=== PATIENT | female | born 1960 | race Caucasian/White ===

== ENCOUNTER 2024-10-10 15:51 | Outpatient (AMB) | payer MEDICARE, SELFPAY ==
[2024-10-10 15:52] VITALS: BP 185/79; PULSE 75; RESP 18; TEMP 36.3; O2SAT 96
--- NOTE | 2024-10-10 15:52 | PD.RESCLINIC ---
Vital Signs 10/10/24 15:52 Weight 86.409 kg Weight Measurement Method Standing Scale BP 185/79 H Blood Pressure Source Automatic Cuff Blood Pressure Location Left Upper Arm Position Sitting Respiration 18 Pulse 75 Pulse Source Monitor Temp 97.3 F Temp Source Oral Pulse Oximetry (%) 96 Oxygen Delivery Method Room Air Allergies/Meds Allergies & Medications Allergies nifedipine Allergy (Verified 10/14/24 15:07) itching Medication Reconciliation bupropion HCl 450 mg 24 hr tablet, extended release 450 mg PO QAM #30 tabs 07/13/24 [Rx Confirmed 10/10/24] isosorbide mononitrate 60 mg tablet,extended release 24 hr 60 mg PO QDAY chest pain #30 tabs 07/13/24 [Rx Confirmed 10/10/24] metoprolol tartrate 25 mg tablet 25 mg PO BID 30 days #60 tabs 07/13/24 [Rx Confirmed 10/10/24] valsartan 160 mg-hydrochlorothiazide 12.5 mg tablet 2 tab PO QDAY #60 tabs 07/13/24 [Rx Confirmed 10/10/24] gabapentin 600 mg tablet 600 mg PO TID #90 tabs 08/05/24 [Rx Confirmed 10/10/24] atorvastatin 80 mg tablet 80 mg PO QPM 30 days #30 tabs 08/10/24 [Rx Confirmed 10/10/24] clopidogrel 75 mg tablet (Plavix) 75 mg PO QDAY 30 days #30 tabs 08/10/24 [Rx Confirmed 10/10/24] diphenoxylate-atropine 2.5 mg-0.025 mg tablet (Lomotil) 1 tab PO QID PRN diarrhea #30 tabs 09/09/24 [Rx Confirmed 10/10/24] nitroglycerin 0.4 mg sublingual tablet 0.4 mg sublingual Q5-15M PRN chest pain #20 tabs 09/12/24 [Rx Confirmed 10/10/24] bupropion HCl 450 mg 24 hr tablet, extended release 450 mg PO QAM #30 tabs 10/03/24 [Rx Confirmed 10/10/24] amitriptyline 50 mg tablet 50 mg PO QHS #30 tabs 10/10/24 [Rx] clonidine HCl 0.1 mg tablet 0.1 mg PO TID #60 tabs 12/23/24 [Rx] hydralazine 100 mg tablet 100 mg PO TID 30 days #90 tabs 10/10/24 [Rx] hydrocodone 7.5 mg-acetaminophen 325 mg tablet 1 tab PO TID PRN pain #90 tabs 10/10/24 [Rx] amlodipine 5 mg tablet 5 mg PO HS 1 month #30 tabs 10/14/24 [Rx Confirmed 10/14/24] MA Intake Visit Data Collection New Patient or Established: Established Patient (seen at [facility] within 3 years) Seen by Clinical Staff ONLY (RN/MA): No Pain Present Currently: No Pen Maker Required: No PCP or OBGYN visit in last 3 months: Yes Do You Feel Safe at Home: Yes Authorities Contacted: N/A Smoking Status Smoking Status: Current every day smoker Cessation Counseling Provided: LEYLA was advised that quitting smoking is the single most important factor to protect the health of themselves and their family. Discussed the benefits of quitting smoking with patient. Encouraged patient to quit smoking and provided Cessation assistance materials and resources. Tobacco Use: Cigarette Years smoked: 40 Are you interested in quitting?: No Immunization / Flu Flu Vaccine in the Last 12 Months: No Flu Vaccine Exclusion Criteria: Refused by Patient Past Medical History Past Medical History NEUROLOGIC: Positive Neurological Disorders, Cerebrovascular Accident, Alzheimer's Disease, Peripheral Neuropathy, Migraine and Head Trauma; Negative Transient Ischemic Attacks (TIA), Dementia, Parkinson's Disease, Brain Tumor, Meningitis, Seizures, Epilepsy, Multiple Sclerosis, Cerebral Palsy, Amyotrophic Lateral Sclerosis (ALS/Ada Gehrig's), Guillain-[place] Syndrome, Spina Bifida, Paralysis, Goins's Palsy, Subdural Hematoma, Spinal Cord Injury or Traumatic Brain Injury CARDIAC: Positive Hypercholesterolemia, Hypertension, Hypotension and Varicose Veins; Negative Cardiac Disorders, Myocardial Infarction, Cardiac Arrhythmia, Atrial Fibrillation, Angina, Heart Murmur, Coronary Artery Disease, Atherosclerotic Heart Disease, Peripheral Vascular Disease, Aneurysm, Congestive Heart Failure, Congenital Heart Disease, Valvular Heart Disease, Rheumatic Fever, Cardiomyopathy, Edema, Pericarditis, Cellulitis or Deep Vein Thrombosis RESPIRATORY: Positive Chronic Obstructive Pulmonary Disease (COPD) and Sleep Apnea; Negative Asthma, Bronchitis, Emphysema, Pneumonia, Pulmonary Fibrosis, Cystic Fibrosis, Tuberculosis, Pulmonary Embolism or Pulmonary Edema GASTROINTESTINAL: Positive Gastrointestinal Disorders, Gall Bladder Disease, Diverticulitis, Diverticulosis, Irritable Bowel, Gastroesophageal Reflux Disease and Obesity; Negative Hepatitis, Cirrhosis, Pancreatitis, Celiac Disease, Gastrointestinal Bleed, Esophageal Varices, Rodriguez's Esophagus, Colitis, Ulcerative Colitis, Ulcer, Colorectal Cancer, Crohn's Disease, Obstructive Bowel, Hiatal Hernia or Hemorrhoids GENITOURINARY: Positive Genitourinary Disorders and Kidney Stones; Negative Renal Disease, Polycystic Kidney Disease, Neurogenic Bladder or Dialysis REPRODUCTIVE: Positive Endometriosis and Previous Pregnancies; Negative Breast Cancer, Pelvic Inflammatory Disease or Uterine Prolapse MUSCULOSKELETAL: Positive Arthritis, Fibromyalgia and Degenerative Joint Disease; Negative Muscular Dystrophy, Myasthenia Gravis, Marfan's Syndrome, Bone Cancer, Rheumatoid Arthritis, Osteoporosis, Degenerative Disk Disease, Gout, Scoliosis, Carpal Tunnel Syndrome, Fractures, Osteomyelitis or Poliovirus ENT: Positive Head Trauma; Negative Cataracts, Glaucoma, Blind, Retinal Detachment, Macular Degeneration, Ear Infection, Deafness or Eye Prosthesis ENDOCRINE: Positive Diabetes Mellitus Type 2; Negative Endocrine Disorders, Diabetes Mellitus Type 1, Hypoglycemia, Walland's Syndrome, Bennett's Disease, Hyperthyroidism, Hypothyroidism, Parathyroid Disease, Pituitary Disease, Systemic Lupus Erythematosus, Syndrome of Inappropriate Antidiuretic Hormone (SIADH), Adrenal Disease or Graves' Disease HEMATOLOGIC: Negative Blood Disorders, Anemia, Leukemia, Hemophilia, Thalassemia, Sickle Cell Disease or Clotting Problems PSYCHO/SOCIAL: Positive Psychiatric Problems, Bipolar Disorder and Depression; Negative Schizophrenia, Anxiety, Behavior Problems, Self-Mutilation, Attention Deficit Disorder, Attention Deficit Hyperactivity Disorder, Depression, Post Traumatic Stress Disorder or Eating Disorder OTHER HISTORY: Positive Hospitalization, Falls, Chicken Pox, Measles and Mumps; Negative Down Syndrome, Autism, Developmental Delay, Shingles, Blood Transfusions, Blood Transfusion Reaction, Anesthesia Reactions, Organ Transplant, Chemotherapy, Radiation Therapy, Hyperbaric Therapy, MRSA, VRSA, Vancomycin-Resistant Enterococci, Human Immunodeficiency Virus (HIV), Rubella (Paragu[place] Measles), Pertussis, Clostridium Difficile, Cancer, Breast Cancer, Cervical Cancer, Colorectal Cancer, Lung Cancer or Ovarian Cancer Family History FAMILY HISTORY: Positive Family Psychiatric Problems, Family Cardiac Disorders and Family Gastrointestinal Problems; Negative Family Respiratory Disorders, Family Cancer, Family Surgery or Family Anesthesia Reaction Surgical History SURGICAL: Positive Oral Surgery, Tonsillectomy, Adenoidectomy, Abdominal Surgery, Joint Replacement, Arthroscopy and Hysterectomy; Negative Cardiac Surgery, Open Heart Surgery, Coronary Artery Bypass Graft, Valve Replacement, Vascular Surgery, Coronary Stent, Cardiac Catheterization, Pacemaker, Angiogram, Auto Implanted Cardiovert Defib, Carotid Endarterectomy, Endocrine Surgery, Thyroidectomy, Ear Surgery, Tympanostomy Tube, Eye Surgery, Nose Surgery, Cochlear Implant, Corneal Transplant, Throat Surgery, Tracheostomy, Gastric Bypass Surgery, Gastrostomy, Bowel Surgery, Nephrectomy, Amputation, Open Reduction Internal Fixation, Neurologic Surgery, Brain Shunt, Mastectomy, Lumpectomy, Tubal Ligation, Section or Organ Transplant Social History SMOKING STATUS: Smoking status: Current every day smoker PACK YEARS: Pack-Years: 17 SECOND HAND EXPOSURE: second hand exposure: No ALCOHOL: Alcohol Intake: Never HOUSING: Housing: House LIVES WITH: Lives With: Family Patient Lelo Sheila Social History Living Situation History Housing: House Housing Other:: Patient resides in a home with her daughter. Tobacco History Smoking Status: Current every day smoker Packs per Day: 1 Pack-Years: 17 Number of Smoking Years (pipe): 10 Second Hand Smoke Exposure: No Alcohol History Alcohol Intake: Never Domestic Abuse History Do You Feel Safe at Home: Yes Review of Systems Report any current symptoms Only answer those that you have currently: Past Medical History Past Medical History Have you ever been diagnosed with any of the following: Neurological Problems Cerebrovascular Accident (CVA): Yes Transient Ischemic Attacks (TIA): No Dementia: No Alzheimer's Disease: Yes Parkinson's Disease: No Brain Tumor: No Meningitis: No Seizures: No Epilepsy: No Multiple Sclerosis: No Cerebral Palsy: No Amyotrophic Lateral Sclerosis (ALS/Ada Gehrig's): No Guillain-[place] Syndrome: No Spina Bifida: No Paralysis: No Peripheral Neuropathy: Yes Goins's Palsy: No Subdural Hematoma: No Migraine: Yes Head Trauma: Yes Spinal Cord Injury: No Traumatic Brain Injury: No Cardiology Problems Myocardial Infarction: No Cardiac Arrhythmia: No Atrial Fibrillation: No Angina: No Heart Murmur: No Coronary Artery Disease: No Atherosclerotic Heart Disease: No Peripheral Vascular Disease: No Hypercholesterolemia: Yes Aneurysm: No Congestive Heart Failure: No Congenital Heart Disease: No Valvular Heart Disease: No Rheumatic Fever: No Cardiomyopathy: No Edema: No Pericarditis: No Cellulitis: No Deep Vein Thrombosis: No Hypertension: Yes Hypotension: Yes Varicose Veins: Yes Respiratory Problems Chronic Obstructive Pulmonary Disease (COPD): Yes Asthma: No Bronchitis: No Emphysema: No Pneumonia: No Pulmonary Fibrosis: No Tuberculosis: No Pulmonary Embolism: No Pulmonary Edema: No Sleep Apnea: Yes Stomache/Intestinal Problems Hepatitis: No Cirrhosis: No Pancreatitis: No Celiac Disease: No Gall Bladder Disease: Yes Gastrointestinal Bleed: No Esophageal Varices: No Rodriguez's Esophagus: No Colitis: No Ulcerative Colitis: No Diverticulitis: Yes Diverticulosis: Yes Ulcer: No Colorectal Cancer: No Irritable Bowel: Yes Crohn's Disease: No Obstructive Bowel: No Hiatal Hernia: No Hemorrhoids: No Gastroesophageal Reflux Disease: Yes Obesity: Yes Genital/Urinary Problems Renal Disease: No Kidney Stones: Yes Polycystic Kidney Disease: No Neurogenic Bladder: No Dialysis: No Reproductive Problems Breast Cancer: No Endometriosis: Yes Pelvic Inflammatory Disease: No Previous Pregnancies: Yes Uterine Prolapse: No Musculoskeletal Problems Muscular Dystrophy: No Myasthenia Gravis: No Marfan's Syndrome: No Bone Cancer: No Arthritis: Yes Rheumatoid Arthritis: No Osteoporosis: No Degenerative Disk Disease: No Gout: No Scoliosis: No Carpal Tunnel Syndrome: No Fibromyalgia: Yes Fractures: No Degenerative Joint Disease: Yes Osteomyelitis: No Poliovirus: No Head,Eye,Nose,Throat Problems Cataracts: No Glaucoma: No Blind: No Retinal Detachment: No Macular Degeneration: No Chronic Ear Infections: No Deafness: No Eye Prosthesis: No Endocrine Problems Diabetes Mellitus Type 1: No Diabetes Mellitus Type 2: Yes Hypoglycemia: No Walland's Syndrome: No Bennett's Disease: No Hyperthyroidism: No Hypothyroidism: No Parathyroid Disease: No Pituitary Disease: No Systemic Lupus Erythematosus: No Syndrome of Inappropriate Antidiuretic Hormone: No Adrenal Disease: No Graves' Disease: No Blood Problems Anemia: No Leukemia: No Hemophilia: No Thalassemia: No Sickle Cell Disease: No Clotting Problems: No Psychologic Problems Schizophrenia: No Bipolar Disorder: Yes Depression: Yes Anxiety: No Behavior Problems: No Self-Mutilation: No Attention Deficit Disorder: No Attention Deficit Hyperactivity Disorder: No Depression: No Post Traumatic Stress Disorder: No Eating Disorder: No Other Problems Hospitalization: Yes Down Syndrome: No Autism: No Developmental Delay: No Shingles: No Falls: Yes Blood Transfusions: No Blood Transfusion Reaction: No Anesthesia Reactions: No Organ Transplant: No Chemotherapy: No Radiation Therapy: No Hyperbaric Therapy: No MRSA: No VRSA: No Vancomycin-Resistant Enterococci: No Human Immunodeficiency Virus (HIV): No Chicken Pox: Yes Measles: Yes Mumps: Yes Rubella (Paraguayan Measles): No Pertussis: No Clostridium Difficile: No Cancer: No Cervical Cancer: No Lung Cancer: No Ovarian Cancer: No Surgical History Carotid Endarterectomy: No Coronary Artery Bypass Graft: No Valve Replacement: No Hysterectomy: Yes Pacemaker: No Thyroidectomy: No History of Present Illness HPI Narrative Ms. Suh is a 63-year-old female with past medical history of bipolar disorder who has been off medications for the last several decades because of loss of insurance. She has not seen a physician in many years up until her recent hospitalizations. She reports that she additionally had a history of diabetes which has been resolved with weight loss, A1c during her last hospitalization 5.5. She notes that she has a longstanding history of kidney stones with multiple kidney surgeries and nephrostomy tube placements. She notes that she currently has a stone which is stuck in her kidney wall. Over the last year, she has been hospitalized several times, notably diagnosed with Afib, bradycardia/vasovagal, CVA, HTN crisis, NSTEMI, normocytic anemia, and kidney disease. Her concerns have revolved around her headaches which she relates to HTN, chest pain which she experiences when trying to sleep (as she ruminates on the loss of her ). Recent echocardiogram revealed ejection fraction 55 to 60% with moderate mitral regurgitation. Angiography July 28, 2023 revealed Significant lesion in the LAD and dominant circumflex and a diffusely diseased nondominant RCA, Dr. Schmid recommended bypass surgery. Leyla reports feeling out of sorts as she is moving out of her house 5 years which is traumatic for her as this was the last place that she has lived with her late . Fortunately, she was able to find a new house which she is moving with her family. She endorses doing fairly well but does endorse occasional palpitations. She notes that she does have a little bit more pain recently from moving all the boxes in her house. She still has not obtained labs nor followed up with her referrals. 04/20/2024 - Leyla scheduled a telehealth visit, as she had ran out of her antihypertensive medications, she has no other complaints at the moment, she did report she has trouble finding a ride, as her son is not available right now. 05/03/2024: The patient was scheduled for telehealth visit because of diarrhea for past 6 days. She reported that she had not been able to tolerate any PO intake, and as soon as she take PO she has a bowel movement within 5-10 minutes. Her bowel movements are watery, foul smelling and not tinged with blood or mucus. She denies any sick contact, recent visit to new place, change in food habit, or any antibiotics use. She also denied any dizziness, fever, chills, nausea or vomiting. She tried immodium without any help, requested antidiarrheal medication. 07/13/2024: Patient comes for monthly visit. Had episode of blacking out on Thursday, was seen in ER found to have elevated blood pressure and bradycardia. No further episodes since. Doing well since. Here for refill of medications. No other acute complaints. Blood pressure is good today at 126/78. Labs from ER visit show PRINCESS, will recheck BUN and Cr in 1 week and consider stopping valsartan-HCTZ at that time. Counselled if HR is low, hold metoprolol and emphasized following up with Cardiology. 08/17/2024: Telehealth visit. Patient did not get labs yet. Complains of yeast infection and rash between abdominal folds x 1 week, unrelieved with Ammens powder. Admits malodorous odor, with some drainage. No open wound. Will prescribe empiric nystatin powder and follow up in 1 week. 10/10/2024 Today patient complains of swelling of her bilateral lower extremities. This started about 2 weeks ago and progressively worsened. Upon exam her right lower extremity appears more swollen than her left. Will order bilateral lower extremity venous Doppler ultrasound to rule out DVT. Also patient needs her clonidine prescription is refilled. Told her we will hold her valsartan/HCTZ for now as she still has not repeated her renal panel. Will reorder renal panel today Patient will have telehealth appointment with Dr. Iraheta on thursday10/14/2024 to review labs. Assessment & Plan Diagnosis / Problem List (1) PRINCESS (acute kidney injury): Status: Acute Assessment & Plan: On 07/10/2024 patient was found to have PRINCESS with Cr of 2.4 Patient was advised to hold her HCTZ/Valsatan and recheck her renal panel. Patient never did the renal panel as she did not have finances at the time. Plan: Plan: - Reordered BMP - Held HCTZ/Valsartan until BMP reviewd. - Follow up on 10/14/2024 at [facility] for review of labs and to decide if to restart HCTZ/Valsartan (2) Swelling of right lower extremity: Status: Acute Assessment & Plan: Patient states that for the past 2 weeks she starting having Lower extremity swelling. On exam patient had bilateral 1+ pitting edema of lower extremities up to her knees bilaterally. However her Right calf appeared more swollen than her left Plan: Plan: - Ordered B/L lower extremity duplex venous ultrasound to rule out DVT (3) Hypertension: Status: Acute Qualifiers: Hypertension type: primary hypertension Qualified Code(s): I10 - Essential (primary) hypertension Assessment & Plan: Today patient's BP 185/79 She says she ran out of medication a few days ago Plan: Plan : - Refilled Clonidine 0.1 mg po TID - Refilled Isosorbide mononitrate 60 mg po Qday Plan Plan of care discussed with Attending Dr. Yoli Moore MD PGY 1 Orders: Orders Basic Metabolic Panel 10/10/24 Eamon Moore MD N17.9 - Acute kidney failure, unspecified US venous doppler LE BI 10/10/24 Eamon Moore MD M79.89 - Other specified soft tissue disorders Additional Assessment Attending note: I, Rivera Kent MD, attest that I was physically present for the murray portions of the service and evaluated the patient with the resident and I reviewed and discussed the case with the resident and agree with the resident's findings and plans of care as documented above. Complaint of bilateral swollen extremities. Check ultrasound to rule out DVTs. Suspect this is more the result of chronic venous hypertension given longstanding hypertension. Repeat renal panel today, hold valsartan/hydrochlorothiazide for now. Telehealth visit later in week to review results. Rivera Kent MD Advanced Care Planning Advance care planning discussed with:: patient Physician Billing Established Patient Established Patient: E/M Level 3-CPT 12112 Office Procedures [facility] Level of Care Nursing/Assessment Patient Status: Established Patient Nursing Assessment/Reassessment: Medication Reconciliation, Update PMH in EMR and Vital Signs Coordination of Care: Complex Care and Chronic Disease 1-5, Consent,records obtained, informed consent, Education Simp Pt/Fam and Staff clarify orders Established Patient Charge Established Patient Point Assignment: 85 Established Patient Point Charge: EP Level 3 (80-115)
== END 2024-10-10 16:29 | disposition home or self-care (01) ==
LOC: HODAHC 15:51
PROVIDERS: PCP Student in an Organized Health Care Education/Training Program; Referring Provider Student in an Organized Health Care Education/Training Program; Supervising Provider Internal Medicine
DX: R22.43 Localized swelling, mass and lump, lower limb, bilateral (principal); I10 Essential (primary) hypertension
CPT/HCPCS: 99213; G0463

== ENCOUNTER → 2024-10-10 | Outpatient (CLI) | payer OTHER, SELFPAY ==
[2024-10-10 17:43] LABS: Anion Gap 6 (7-16); BUN/Creatinine Ratio 15 Ratio (12-20); Blood Urea Nitrogen 27 mg/dL (9-23); Calcium 9.6 mg/dL (8.3-10.6); Carbon Dioxide 22.9 mMol/L (20.0-31.0); Chloride 108 mMol/L (98-107); Creatinine (Component) 1.8 mg/dL (0.6-1.3); Glucose 95 mg/dL (74-106); Osmolality,Calculated 278 (275-295); Potassium 4.6 mMol/L (3.4-5.1); Sodium 137 mMol/L (136-145); eGFR 31 See Note
== END | disposition home or self-care (01) ==
DX: N17.9 Acute kidney failure, unspecified (principal)
CPT/HCPCS: 36415; 80048

== ENCOUNTER 2024-10-14 15:06 | Outpatient (AMB) | payer OTHER, SELFPAY ==
--- NOTE | 2024-10-14 15:07 | ACNOTE_ITS ---
Allergies/Meds Allergies & Medications Allergies nifedipine Allergy (Verified 10/14/24 15:07) itching Medication Reconciliation bupropion HCl 450 mg 24 hr tablet, extended release 450 mg PO QAM #30 tabs 07/13/24 [Rx Confirmed 10/10/24] isosorbide mononitrate 60 mg tablet,extended release 24 hr 60 mg PO QDAY chest pain #30 tabs 07/13/24 [Rx Confirmed 10/10/24] metoprolol tartrate 25 mg tablet 25 mg PO BID 30 days #60 tabs 07/13/24 [Rx Confirmed 10/10/24] valsartan 160 mg-hydrochlorothiazide 12.5 mg tablet 2 tab PO QDAY #60 tabs 07/13/24 [Rx Confirmed 10/10/24] gabapentin 600 mg tablet 600 mg PO TID #90 tabs 08/05/24 [Rx Confirmed 10/10/24] atorvastatin 80 mg tablet 80 mg PO QPM 30 days #30 tabs 08/10/24 [Rx Confirmed 10/10/24] clopidogrel 75 mg tablet (Plavix) 75 mg PO QDAY 30 days #30 tabs 08/10/24 [Rx Confirmed 10/10/24] diphenoxylate-atropine 2.5 mg-0.025 mg tablet (Lomotil) 1 tab PO QID PRN diarrhea #30 tabs 09/09/24 [Rx Confirmed 10/10/24] nitroglycerin 0.4 mg sublingual tablet 0.4 mg sublingual Q5-15M PRN chest pain #20 tabs 09/12/24 [Rx Confirmed 10/10/24] bupropion HCl 450 mg 24 hr tablet, extended release 450 mg PO QAM #30 tabs 10/03/24 [Rx Confirmed 10/10/24] amitriptyline 50 mg tablet 50 mg PO QHS #30 tabs 10/10/24 [Rx] clonidine HCl 0.1 mg tablet 0.1 mg PO TID #60 tabs 10/10/24 [Rx] hydralazine 100 mg tablet 100 mg PO TID 30 days #90 tabs 10/10/24 [Rx] hydrocodone 7.5 mg-acetaminophen 325 mg tablet 1 tab PO TID PRN pain #90 tabs 10/10/24 [Rx] amlodipine 5 mg tablet 5 mg PO HS 1 month #30 tabs 10/14/24 [Rx Confirmed 10/14/24] MA Intake Visit Data Collection New Patient or Established: Established Patient (seen at [facility] within 3 years) Seen by Clinical Staff ONLY (RN/MA): No Reason for Visit:: Lab Follow Up Pain Present Currently: No Supervisor Alteration Workroom Required: No PCP or OBGYN visit in last 3 months: Yes Authorities Contacted: N/A Smoking Status Smoking Status: Current every day smoker Cessation Counseling Provided: LEYLA was advised that quitting smoking is the single most important factor to protect the health of themselves and their family. Discussed the benefits of quitting smoking with patient. Encouraged patient to quit smoking and provided Cessation assistance materials and resources. Tobacco Use: Cigarette Years smoked: 10 Are you interested in quitting?: No For Televisit only Telemed Video/Phone Visit: Yes Verbal consent obtained for Telemed visit?: Yes Telemed Video/Phone visit w/Clinical Staff: 21-30 min Immunization / Flu Flu Vaccine in the Last 12 Months: No Flu Vaccine Exclusion Criteria: Refused by Patient Past Medical History Past Medical History NEUROLOGIC: Positive Neurological Disorders, Cerebrovascular Accident, Alzheim er's Disease, Peripheral Neuropathy, Migraine and Head Trauma; Negative Transient Ischemic Attacks (TIA), Dementia, Parkinson's Disease, Brain Tumor, Meningitis, Seizures, Epilepsy, Multiple Sclerosis, Cerebral Palsy, Amyotrophic Lateral Sclerosis (ALS/Ada Gehrig's), Guillain-Columbus Syndrome, Spina Bifida, Paralysis, Goins's Palsy, Subdural Hematoma, Spinal Cord Injury or Traumatic Brain Injury CARDIAC: Positive Hypercholesterolemia, Hypertension, Hypotension and Varicose Veins; Negative Cardiac Disorders, Myocardial Infarction, Cardiac Arrhythmia, Atrial Fibrillation, Angina, Heart Murmur, Coronary Artery Disease, Atherosclerotic Heart Disease, Peripheral Vascular Disease, Aneurysm, Congestive Heart Failure, Congenital Heart Disease, Valvular Heart Disease, Rheumatic Fever, Cardiomyopathy, Edema, Pericarditis, Cellulitis or Deep Vein Thrombosis RESPIRATORY: Positive Chronic Obstructive Pulmonary Disease (COPD) and Sleep Apnea; Negative Asthma, Bronchitis, Emphysema, Pneumonia, Pulmonary Fibrosis, Cystic Fibrosis, Tuberculosis, Pulmonary Embolism or Pulmonary Edema GASTROINTESTINAL: Positive Gastrointestinal Disorders, Gall Bladder Disease, Diverticulitis, Diverticulosis, Irritable Bowel, Gastroesophageal Reflux Disease and Obesity; Negative Hepatitis, Cirrhosis, Pancreatitis, Celiac Disease, Gastrointestinal Bleed, Esophageal Varices, Rodriguez's Esophagus, Colitis, Ulcerative Colitis, Ulcer, Colorectal Cancer, Crohn's Disease, Obstructive Bowel, Hiatal Hernia or Hemorrhoids GENITOURINARY: Positive Genitourinary Disorders and Kidney Stones; Negative Renal Disease, Polycystic Kidney Disease, Neurogenic Bladder or Dialysis REPRODUCTIVE: Positive Endometriosis and Previous Pregnancies; Negative Breast Cancer, Pelvic Inflammatory Disease or Uterine Prolapse MUSCULOSKELETAL: Positive Arthritis, Fibromyalgia and Degenerative Joint Disease; Negative Muscular Dystrophy, Myasthenia Gravis, Marfan's Syndrome, Bone Cancer, Rheumatoid Arthritis, Osteoporosis, Degenerative Disk Disease, Gout, Scoliosis, Carpal Tunnel Syndrome, Fractures, Osteomyelitis or Poliovirus ENT: Positive Head Trauma; Negative Cataracts, Glaucoma, Blind, Retinal Detachment, Macular Degeneration, Ear Infection, Deafness or Eye Prosthesis ENDOCRINE: Positive Diabetes Mellitus Type 2; Negative Endocrine Disorders, Diabetes Mellitus Type 1, Hypoglycemia, Ree's Syndrome, Bennett's Disease, Hyperthyroidism, Hypothyroidism, Parathyroid Disease, Pituitary Disease, Systemic Lupus Erythematosus, Syndrome of Inappropriate Antidiuretic Hormone (SIADH), Adrenal Disease or Graves' Disease HEMATOLOGIC: Negative Blood Disorders, Anemia, Leukemia, Hemophilia, Thalassemia, Sickle Cell Disease or Clotting Problems PSYCHO/SOCIAL: Positive Psychiatric Problems, Bipolar Disorder and Depression; Negative Schizophrenia, Anxiety, Behavior Problems, Self-Mutilation, Attention Deficit Disorder, Attention Deficit Hyperactivity Disorder, Depression, Post Traumatic Stress Disorder or Eating Disorder OTHER HISTORY: Positive Hospitalization, Falls, Chicken Pox, Measles and Mumps; Negative Down Syndrome, Autism, Developmental Delay, Shingles, Blood Transfusions, Blood Transfusion Reaction, Anesthesia Reactions, Organ Transplant, Chemotherapy, Radiation Therapy, Hyperbaric Therapy, MRSA, VRSA, Vancomycin-Resistant Enterococci, Human Immunodeficiency Virus (HIV), Rubella ([place] Islander Measles), Pertussis, Clostridium Difficile, Cancer, Breast Cancer, Cervical Cancer, Colorectal Cancer, Lung Cancer or Ovarian Cancer Family History FAMILY HISTORY: Positive Family Psychiatric Problems, Family Cardiac Disorders and Family Gastrointestinal Problems; Negative Family Respiratory Disorders, Family Cancer, Family Surgery or Family Anesthesia Reaction Surgical History SURGICAL: Positive Oral Surgery, Tonsillectomy, Adenoidectomy, Abdominal Surgery, Joint Replacement, Arthroscopy and Hysterectomy; Negative Cardiac Surgery, Open Heart Surgery, Coronary Artery Bypass Graft, Valve Replacement, Vascular Surgery, Coronary Stent, Cardiac Catheterization, Pacemaker, Angiogram, Auto Implanted Cardiovert Defib, Carotid Endarterectomy, Endocrine Surgery, Thyroidectomy, Ear Surgery, Tympanostomy Tube, Eye Surgery, Nose Surgery, Cochlear Implant, Corneal Transplant, Throat Surgery, Tracheostomy, Gastric Bypass Surgery, Gastrostomy, Bowel Surgery, Nephrectomy, Amputation, Open Reduction Internal Fixation, Neurologic Surgery, Brain Shunt, Mastectomy, Lumpectomy, Tubal Ligation, Section or Organ Transplant Social History SMOKING STATUS: Smoking status: Current every day smoker PACK YEARS: Pack-Years: 17 SECOND HAND EXPOSURE: second hand exposure: No ALCOHOL: Alcohol Intake: Never HOUSING: Housing: House LIVES WITH: Lives With: Family Patient Lelo Sosa Social History Living Situation History Housing: House Housing Other:: Patient resides in a home with her daughter. Tobacco History Smoking Status: Current every day smoker Packs per Day: 1 Pack-Years: 17 Number of Smoking Years (pipe): 10 Second Hand Smoke Exposure: No Alcohol History Alcohol Intake: Never Review of Systems Report any current symptoms Only answer those that you have currently: Past Medical History Past Medical History Have you ever been diagnosed with any of the following: Neurological Problems Cerebrovascular Accident (CVA): Yes Transient Ischemic Attacks (TIA): No Dementia: No Alzheimer's Disease: Yes Parkinson's Disease: No Brain Tumor: No Meningitis: No Seizures: No Epilepsy: No Multiple Sclerosis: No Cerebral Palsy: No Amyotrophic Lateral Sclerosis (ALS/Ada Gehrig's): No Guillain-Columbus Syndrome: No Spina Bifida: No Paralysis: No Peripheral Neuropathy: Yes Goins's Palsy: No Subdural Hematoma: No Migraine: Yes Head Trauma: Yes Spinal Cord Injury: No Traumatic Brain Injury: No Cardiology Problems Myocardial Infarction: No Cardiac Arrhythmia: No Atrial Fibrillation: No Angina: No Heart Murmur: No Coronary Artery Disease: No Atherosclerotic Heart Disease: No Peripheral Vascular Disease: No Hypercholesterolemia: Yes Aneurysm: No Congestive Heart Failure: No Congenital Heart Disease: No Valvular Heart Disease: No Rheumatic Fever: No Cardiomyopathy: No Edema: No Pericarditis: No Cellulitis: No Deep Vein Thrombosis: No Hypertension: Yes Hypotension: Yes Varicose Veins: Yes Respiratory Problems Chronic Obstructive Pulmonary Disease (COPD): Yes Asthma: No Bronchitis: No Emphysema: No Pneumonia: No Pulmonary Fibrosis: No Tuberculosis: No Pulmonary Embolism: No Pulmonary Edema: No Sleep Apnea: Yes Stomache/Intestinal Problems Hepatitis: No Cirrhosis: No Pancreatitis: No Celiac Disease: No Gall Bladder Disease: Yes Gastrointestinal Bleed: No Esophageal Varices: No Rodriguez's Esophagus: No Colitis: No Ulcerative Colitis: No Diverticulitis: Yes Diverticulosis: Yes Ulcer: No Colorectal Cancer: No Irritable Bowel: Yes Crohn's Disease: No Obstructive Bowel: No Hiatal Hernia: No Hemorrhoids: No Gastroesophageal Reflux Disease: Yes Obesity: Yes Genital/Urinary Problems Renal Disease: No Kidney Stones: Yes Polycystic Kidney Disease: No Neurogenic Bladder: No Dialysis: No Reproductive Problems Breast Cancer: No Endometriosis: Yes Pelvic Inflammatory Disease: No Previous Pregnancies: Yes Uterine Prolapse: No Musculoskeletal Problems Muscular Dystrophy: No Myasthenia Gravis: No Marfan's Syndrome: No Bone Cancer: No Arthritis: Yes Rheumatoid Arthritis: No Osteoporosis: No Degenerative Disk Disease: No Gout: No Scoliosis: No Carpal Tunnel Syndrome: No Fibromyalgia: Yes Fractures: No Degenerative Joint Disease: Yes Osteomyelitis: No Poliovirus: No Head,Eye,Nose,Throat Problems Cataracts: No Glaucoma: No Blind: No Retinal Detachment: No Macular Degeneration: No Chronic Ear Infections: No Deafness: No Eye Prosthesis: No Endocrine Problems Diabetes Mellitus Type 1: No Diabetes Mellitus Type 2: Yes Hypoglycemia: No [place]'s Syndrome: No [place]'s Disease: No Hyperthyroidism: No Hypothyroidism: No Parathyroid Disease: No Pituitary Disease: No Systemic Lupus Erythematosus: No Syndrome of Inappropriate Antidiuretic Hormone: No Adrenal Disease: No Graves' Disease: No Blood Problems Anemia: No Leukemia: No Hemophilia: No Thalassemia: No Sickle Cell Disease: No Clotting Problems: No Psychologic Problems Schizophrenia: No Bipolar Disorder: Yes Depression: Yes Anxiety: No Behavior Problems: No Self-Mutilation: No Attention Deficit Disorder: No Attention Deficit Hyperactivity Disorder: No Depression: No Post Traumatic Stress Disorder: No Eating Disorder: No Other Problems Hospitalization: Yes Down Syndrome: No Autism: No Developmental Delay: No Shingles: No Falls: Yes Blood Transfusions: No Blood Transfusion Reaction: No Anesthesia Reactions: No Organ Transplant: No Chemotherapy: No Radiation Therapy: No Hyperbaric Therapy: No MRSA: No VRSA: No Vancomycin-Resistant Enterococci: No Human Immunodeficiency Virus (HIV): No Chicken Pox: Yes Measles: Yes Mumps: Yes Rubella ([place] Islander Measles): No Pertussis: No Clostridium Difficile: No Cancer: No Cervical Cancer: No Lung Cancer: No Ovarian Cancer: No Surgical History Carotid Endarterectomy: No Coronary Artery Bypass Graft: No Valve Replacement: No Hysterectomy: Yes Pacemaker: No Thyroidectomy: No History of Present Illness HPI Narrative Ms. Suh is a 63-year-old female with past medical history of bipolar disorder who has been off medications for the last several decades because of loss of insurance. She has not seen a physician in many years up until her recent hospitalizations. She reports that she additionally had a history of diabetes which has been resolved with weight loss, A1c during her last hospitalization 5.5. She notes that she has a longstanding history of kidney stones with multiple kidney surgeries and nephrostomy tube placements. She notes that she currently has a stone which is stuck in her kidney wall. Over the last year, she has been hospitalized several times, notably diagnosed with Afib, bradycardia/vasovagal, CVA, HTN crisis, NSTEMI, normocytic anemia, and kidney disease. Her concerns have revolved around her headaches which she relates to HTN, chest pain which she experiences when trying to sleep (as she ruminates on the loss of her ). Recent echocardiogram revealed ejection fraction 55 to 60% with moderate mitral regurgitation. Angiography July 28, 2023 revealed Significant lesion in the LAD and dominant circumflex and a diffusely diseased nondominant RCA, Dr. Schmid recommended bypass surgery. Leyla reports feeling out of sorts as she is moving out of her house 5 years which is traumatic for her as this was the last place that she has lived with her late . Fortunately, she was able to find a new house which she is moving with her family. She endorses doing fairly well but does endorse occasional palpitations. She notes that she does have a little bit more pain recently from moving all the boxes in her house. She still has not obtained labs nor followed up with her referrals. 04/20/2024 - Leyla scheduled a telehealth visit, as she had ran out of her antihypertensive medications, she has no other complaints at the moment, she did report she has trouble finding a ride, as her son is not available right now. 05/03/2024: The patient was scheduled for telehealth visit because of diarrhea for past 6 days. She reported that she had not been able to tolerate any PO intake, and as soon as she take PO she has a bowel movement within 5-10 minutes. Her bowel movements are watery, foul smelling and not tinged with blood or mucus. She denies any sick contact, recent visit to new place, change in food habit, or any antibiotics use. She also denied any dizziness, fever, chills, nausea or vomiting. She tried immodium without any help, requested antidiarrheal medication. 07/13/2024: Patient comes for monthly visit. Had episode of blacking out on Thursday, was seen in ER found to have elevated blood pressure and bradycardia. No further episodes since. Doing well since. Here for refill of medications. No other acute complaints. Blood pressure is good today at 126/78. Labs from ER visit show PRINCESS, will recheck BUN and Cr in 1 week and consider stopping valsartan-HCTZ at that time. Counselled if HR is low, hold metoprolol and emphasized following up with Cardiology. 08/17/2024: Telehealth visit. Patient did not get labs yet. Complains of yeast infection and rash between abdominal folds x 1 week, unrelieved with Ammens powder. Admits malodorous odor, with some drainage. No open wound. Will prescribe empiric nystatin powder and follow up in 1 week. 10/10/2024 Today patient complains of swelling of her bilateral lower extremities. This started about 2 weeks ago and progressively worsened. Upon exam her right lower extremity appears more swollen than her left. Will order bilateral lower extremity venous Doppler ultrasound to rule out DVT. Also patient needs her clonidine prescription is refilled. Told her we will hold her valsartan/HCTZ for now as she still has not repeated her renal panel. Will reorder renal panel today 10/14/2024: Telehealth visit to review labs. Reports was unable to schedule US of BLE due to holidays. Renal panel reviewed, Sodium 137, potassium 4.6, ch loride 108, bicarb 22.9, BUN 27, creatinine 1.8 and GFR 31. Patient's renal function Cr 1.2, BUN 16, GFR 51 in July 2023. Will refer patient to Nephrology for further workup. Patient reports taking Clonidine, Metoprolol tartrate, Hydralazine, Isosorbide for BP management, will continue to hold losartan-HCTZ. Patient to follow up in 2 weeks to check blood pressure. Review of Systems Review of Systems ROS Unobtainable: other (Tele-visit) Objective/Exam Narrative Physical exam: limited exam. telehealth visit. Assessment & Plan Diagnosis / Problem List (1) CKD (chronic kidney disease): Status: Acute Assessment & Plan: Labs 10/10/24: BUN 27, creatinine 1.8 and GFR 31. Patient's renal function Cr 1.2, BUN 16, GFR 51 in July 2023. Plan: -Referral to Nephrology for further workup. -Hold Valsartan-HCTZ -Counselled to maintain adequate hydration. (2) Hypertension: Status: Acute Qualifiers: Hypertension type: primary hypertension Qualified Code(s): I10 - Essential (primary) hypertension Assessment & Plan: BP 185/79 during last visit Currently on Clonidine, metoprolol tartrate, Hydralazine, Isosorbide mononitrate Cannot check blood pressure at home, does not have cuff at home Valsartan-HCTZ being held Plan: -Start amlodipine 5mg daily -Follow up in office in 2 weeks (3) Swelling of right lower extremity: Status: Acute Assessment & Plan: 10/10- On exam patient had bilateral 1+ pitting edema of lower extremities up to her knees bilaterally. However her Right calf appeared more swollen than her left. Ordered B/L lower extremity duplex venous ultrasound to rule out DVT. Plan: -Unable to schedule US of BLE due to holidays. -Ordered B/L lower extremity duplex venous ultrasound to rule out DVT, follow up. Plan Case discussed with Attending Dr. Kent. Lashawn Morgan PGY1 Orders: Referrals Nephrology Lashawn Morgan MD N18.9 - Chronic kidney disease, unspecified Additional Assessment Attending note: I, Rivera Kent MD, attest that I was physically present for the murray portions of the service completed via telehealth, and I reviewed and discussed the case with the resident and agree with the resident's plans of care as documented above. Follow-up visit. Labs reviewed. Continued CKD with creatinine of 1.8 and GFR 31. Longstanding hypertension. We will refer patient to nephrology to establish and for further workup. Hold losartan hydrochlorothiazide. Monitor blood pressures outpatient. Follow-up in 2 weeks. Rivera Kent MD Advanced Care Planning Advance care planning discussed with:: patient Physician Billing Established Patient Established Patient: E/M Level 2-CPT 02660 Office Procedures [facility] Level of Care Nursing/Assessment Patient Status: Established Patient Nursing Assessment/Reassessment: Medication Reconciliation and Update PMH in EMR Coordination of Care: Complex Care and Chronic Disease 1-5, Consent,records obtained, informed consent, Education Simp Pt/Fam and Staff clarify orders Established Patient Charge Established Patient Point Assignment: 70 Telehealth Telemed Phone/Video with patient at home & Dr,PA,MUSIC COORDINATOR: Yes
== END 2024-10-14 15:29 | disposition home or self-care (01) ==
LOC: HODAHC 15:06
PROVIDERS: PCP Student in an Organized Health Care Education/Training Program; Referring Provider Student in an Organized Health Care Education/Training Program; Supervising Provider Internal Medicine
DX: Z71.2 Person consulting for explanation of examination or test findings (principal); I12.9 Hypertensive chronic kidney disease with stage 1 through stage 4 chronic kidney disease, or unspecified chronic kidney disease; N18.9 Chronic kidney disease, unspecified; R22.43 Localized swelling, mass and lump, lower limb, bilateral
CPT/HCPCS: 99212; G0463

== ENCOUNTER 2024-11-09 15:17 | Outpatient (AMB) | payer OTHER, SELFPAY ==
--- NOTE | 2024-11-09 15:52 | ACNOTE_ITS ---
Allergies/Meds Allergies & Medications Allergies nifedipine Allergy (Verified 11/09/24 17:22) itching Medication Reconciliation bupropion HCl 450 mg 24 hr tablet, extended release 450 mg PO QAM #30 tabs 07/13/24 [Rx Confirmed 11/09/24] isosorbide mononitrate 60 mg tablet,extended release 24 hr 60 mg PO QDAY chest pain #30 tabs 07/13/24 [Rx Confirmed 11/09/24] metoprolol tartrate 25 mg tablet 25 mg PO BID 30 days #60 tabs 07/13/24 [Rx Confirmed 11/09/24] gabapentin 600 mg tablet 600 mg PO TID #90 tabs 08/05/24 [Rx Confirmed 11/09/24] atorvastatin 80 mg tablet 80 mg PO QPM 30 days #30 tabs 08/10/24 [Rx Confirmed 11/09/24] clopidogrel 75 mg tablet (Plavix) 75 mg PO QDAY 30 days #30 tabs 08/10/24 [Rx Confirmed 11/09/24] diphenoxylate-atropine 2.5 mg-0.025 mg tablet (Lomotil) 1 tab PO QID PRN diarrhea #30 tabs 09/09/24 [Rx Confirmed 11/09/24] nitroglycerin 0.4 mg sublingual tablet 0.4 mg sublingual Q5-15M PRN chest pain #20 tabs 09/12/24 [Rx Confirmed 11/09/24] bupropion HCl 450 mg 24 hr tablet, extended release 450 mg PO QAM #30 tabs 10/03/24 [Rx Confirmed 11/09/24] amitriptyline 50 mg tablet 50 mg PO QHS #30 tabs 10/10/24 [Rx Confirmed 11/09/24] clonidine HCl 0.1 mg tablet 0.1 mg PO TID #60 tabs 10/10/24 [Rx Confirmed 11/09/24] hydralazine 100 mg tablet 100 mg PO TID 30 days #90 tabs 10/10/24 [Rx Confirmed 11/09/24] amlodipine 5 mg tablet 5 mg PO HS 1 month #30 tabs 11/09/24 [Rx Confirmed 11/09/24] hydrocodone 7.5 mg-acetaminophen 325 mg tablet 1 tab PO TID PRN pain #90 tabs 11/09/24 [Rx Confirmed 11/09/24] MA Intake Visit Data Collection New Patient or Established: Established Patient (seen at [facility] within 3 years) Seen by Clinical Staff ONLY (RN/MA): No Pain Present Currently: No Pain Scale Used: Mendez-Qureshi/Numerical Brush Holder Assembler Required: No PCP or OBGYN visit in last 3 months: Yes Hx Now: No Do You Feel Safe at Home: Yes Authorities Contacted: N/A Smoking Status Smoking Status: Current every day smoker Cessation Counseling Provided: LEYLA was advised that quitting smoking is the single most important factor to protect the health of themselves and their family. Discussed the benefits of quitting smoking with patient. Encouraged patient to quit smoking and provided Cessation assistance materials and resources. Tobacco Use: Cigarette Years smoked: 17 Are you interested in quitting?: No For Televisit only Telemed Video/Phone Visit: Yes Verbal consent obtained for Telemed visit?: Yes Verbal Consent witness name: rowena Telemed Video/Phone visit w/Clinical Staff: 21-30 min Immunization / Flu Flu Vaccine in the Last 12 Months: No Flu Vaccine Exclusion Criteria: No Exclusion Criteria Past Medical History Past Medical History NEUROLOGIC: Positive Neurological Disorders, Cerebrovascular Accident, Alzheimer's Disease, Peripheral Neuropathy, Migraine and Head Trauma; Negative Transient Ischemic Attacks (TIA), Dementia, Parkinson's Disease, Brain Tumor, Meningitis, Seizures, Epilepsy, Multiple Sclerosis, Cerebral Palsy, Amyotrophic Lateral Sclerosis (ALS/Ada Gehrig's), Guillain-[place] Syndrome, Spina Bifida, Paralysis, Goins's Palsy, Subdural Hematoma, Spinal Cord Injury or Traumatic Brain Injury CARDIAC: Positive Hypercholesterolemia, Hypertension, Hypotension and Varicose Veins; Negative Cardiac Disorders, Myocardial Infarction, Cardiac Arrhythmia, Atrial Fibrillation, Angina, Heart Murmur, Coronary Artery Disease, Atherosclerotic Heart Disease, Peripheral Vascular Disease, Aneurysm, Congestive Heart Failure, Congenital Heart Disease, Valvular Heart Disease, Rheumatic Fever, Cardiomyopathy, Edema, Pericarditis, Cellulitis or Deep Vein Thrombosis RESPIRATORY: Positive Chronic Obstructive Pulmonary Disease (COPD) and Sleep Apnea; Negative Asthma, Bronchitis, Emphysema, Pneumonia, Pulmonary Fibrosis, Cystic Fibrosis, Tuberculosis, Pulmonary Embolism or Pulmonary Edema GASTROINTESTINAL: Positive Gastrointestinal Disorders, Gall Bladder Disease, Diverticulitis, Diverticulosis, Irritable Bowel, Gastroesophageal Reflux Disease and Obesity; Negative Hepatitis, Cirrhosis, Pancreatitis, Celiac Disease, Gastrointestinal Bleed, Esophageal Varices, Rodriguez's Esophagus, Colitis, Ulcerative Colitis, Ulcer, Colorectal Cancer, Crohn's Disease, Obstructive Bowel, Hiatal Hernia or H emorrhoids GENITOURINARY: Positive Genitourinary Disorders and Kidney Stones; Negative Renal Disease, Polycystic Kidney Disease, Neurogenic Bladder or Dialysis REPRODUCTIVE: Positive Endometriosis and Previous Pregnancies; Negative Breast Cancer, Pelvic Inflammatory Disease or Uterine Prolapse MUSCULOSKELETAL: Positive Arthritis, Fibromyalgia and Degenerative Joint Disease; Negative Muscular Dystrophy, Myasthenia Gravis, Marfan's Syndrome, Bone Cancer, Rheumatoid Arthritis, Osteoporosis, Degenerative Disk Disease, Gout, Scoliosis, Carpal Tunnel Syndrome, Fractures, Osteomyelitis or Poliovirus ENT: Positive Head Trauma; Negative Cataracts, Glaucoma, Blind, Retinal Detachment, Macular Degeneration, Ear Infection, Deafness or Eye Prosthesis ENDOCRINE: Positive Diabetes Mellitus Type 2; Negative Endocrine Disorders, Diabetes Mellitus Type 1, Hypoglycemia, Ree's Syndrome, [place]'s Disease, Hyperthyroidism, Hypothyroidism, Parathyroid Disease, Pituitary Disease, Systemic Lupus Erythematosus, Syndrome of Inappropriate Antidiuretic Hormone (SIADH), Adrenal Disease or Graves' Disease HEMATOLOGIC: Negative Blood Disorders, Anemia, Leukemia, Hemophilia, Thalassemia, Sickle Cell Disease or Clotting Problems PSYCHO/SOCIAL: Positive Psychiatric Problems, Bipolar Disorder and Depression; Negative Schizophrenia, Anxiety, Behavior Problems, Self-Mutilation, Attention Deficit Disorder, Attention Deficit Hyperactivity Disorder, Depression, Post Traumatic Stress Disorder or Eating Disorder OTHER HISTORY: Positive Hospitalization, Falls, Chicken Pox, Measles and Mumps; Negative Down Syndrome, Autism, Developmental Delay, Shingles, Blood Transfusions, Blood Transfusion Reaction, Anesthesia Reactions, Organ Transplant, Chemotherapy, Radiation Therapy, Hyperbaric Therapy, MRSA, VRSA, Vancomycin-Resistant Enterococci, Human Immunodeficiency Virus (HIV), Rubella (Danish Measles), Pertussis, Clostridium Difficile, Cancer, Breast Cancer, Cervical Cancer, Colorectal Cancer, Lung Cancer or Ovarian Cancer Family History FAMILY HISTORY: Positive Family Psychiatric Problems, Family Cardiac Disorders and Family Gastrointestinal Problems; Negative Family Respiratory Disorders, Family Cancer, Family Surgery or Family Anesthesia Reaction Surgical History SURGICAL: Positive Oral Surgery, Tonsillectomy, Adenoidectomy, Abdominal Surgery, Joint Replacement, Arthroscopy and Hysterectomy; Negative Cardiac Surgery, Open Heart Surgery, Coronary Artery Bypass Graft, Valve Replacement, Vascular Surgery, Coronary Stent, Cardiac Catheterization, Pacemaker, Angiogram, Auto Implanted Cardiovert Defib, Carotid Endarterectomy, Endocrine Surgery, Thyroidectomy, Ear Surgery, Tympanostomy Tube, Eye Surgery, Nose Surgery, Cochlear Implant, Corneal Transplant, Throat Surgery, Tracheostomy, Gastric Bypass Surgery, Gastrostomy, Bowel Surgery, Nephrectomy, Amputation, Open Reduction Internal Fixation, Neurologic Surgery, Brain Shunt, Mastectomy, Lumpectomy, Tubal Ligation, Section or Organ Transplant Social History SMOKING STATUS: Smoking status: Current every day smoker PACK YEARS: Pack-Years: 17 SECOND HAND EXPOSURE: second hand exposure: No ALCOHOL: Alcohol Intake: Never HOUSING: Housing: House LIVES WITH: Lives With: Family Patient Lelo Sosa Social History Living Situation History Housing: House Housing Other:: Patient resides in a home with her daughter. Tobacco History Smoking Status: Current every day smoker Packs per Day: 1 Pack-Years: 17 Number of Smoking Years (pipe): 10 Second Hand Smoke Exposure: No Alcohol History Alcohol Intake: Never Domestic Abuse History Do You Feel Safe at Home: Yes Review of Systems Report any current symptoms Only answer those that you have currently: Past Medical History Past Medical History Have you ever been diagnosed with any of the following: Neurological Problems Cerebrovascular Accident (CVA): Yes Transient Ischemic Attacks (TIA): No Dementia: No Alzheimer's Disease: Yes Parkinson's Disease: No Brain Tumor: No Meningitis: No Seizures: No Epilepsy: No Multiple Sclerosis: No Cerebral Palsy: No Amyotrophic Lateral Sclerosis (ALS/Ada Gehrig's): No Guillain-[place] Syndrome: No Spina Bifida: No Paralysis: No Peripheral Neuropathy: Yes Goins's Palsy: No Subdural Hematoma: No Migraine: Yes Head Trauma: Yes Spinal Cord Injury: No Traumatic Brain Injury: No Cardiology Problems Myocardial Infarction: No Cardiac Arrhythmia: No Atrial Fibrillation: No Angina: No Heart Murmur: No Coronary Artery Disease: No Atherosclerotic Heart Disease: No Peripheral Vascular Disease: No Hypercholesterolemia: Yes Aneurysm: No Congestive Heart Failure: No Congenital Heart Disease: No Valvular Heart Disease: No Rheumatic Fever: No Cardiomyopathy: No Edema: No Pericarditis: No Cellulitis: No Deep Vein Thrombosis: No Hypertension: Yes Hypotension: Yes Varicose Veins: Yes Respiratory Problems Chronic Obstructive Pulmonary Disease (COPD): Yes Asthma: No Bronchitis: No Emphysema: No Pneumonia: No Pulmonary Fibrosis: No Tuberculosis: No Pulmonary Embolism: No Pulmonary Edema: No Sleep Apnea: Yes Stomache/Intestinal Problems Hepatitis: No Cirrhosis: No Pancreatitis: No Celiac Disease: No Gall Bladder Disease: Yes Gastrointestinal Bleed: No Esophageal Varices: No Rodriguez's Esophagus: No Colitis: No Ulcerative Colitis: No Diverticulitis: Yes Diverticulosis: Yes Ulcer: No Colorectal Cancer: No Irritable Bowel: Yes Crohn's Disease: No Obstructive Bowel: No Hiatal Hernia: No Hemorrhoids: No Gastroesophageal Reflux Disease: Yes Obesity: Yes Genital/Urinary Problems Renal Disease: No Kidney Stones: Yes Polycystic Kidney Disease: No Neurogenic Bladder: No Dialysis: No Reproductive Problems Breast Cancer: No Endometriosis: Yes Pelvic Inflammatory Disease: No Previous Pregnancies: Yes Uterine Prolapse: No Musculoskeletal Problems Muscular Dystrophy: No Myasthenia Gravis: No Marfan's Syndrome: No Bone Cancer: No Arthritis: Yes Rheumatoid Arthritis: No Osteoporosis: No Degenerative Disk Disease: No Gout: No Scoliosis: No Carpal Tunnel Syndrome: No Fibromyalgia: Yes Fractures: No Degenerative Joint Disease: Yes Osteomyelitis: No Poliovirus: No Head,Eye,Nose,Throat Problems Cataracts: No Glaucoma: No Blind: No Retinal Detachment: No Macular Degeneration: No Chronic Ear Infections: No Deafness: No Eye Prosthesis: No Endocrine Problems Diabetes Mellitus Type 1: No Diabetes Mellitus Type 2: Yes Hypoglycemia: No Latham's Syndrome: No Bennett's Disease: No Hyperthyroidism: No Hypothyroidism: No Parathyroid Disease: No Pituitary Disease: No Systemic Lupus Erythematosus: No Syndrome of Inappropriate Antidiuretic Hormone: No Adrenal Disease: No Graves' Disease: No Blood Problems Anemia: No Leukemia: No Hemophilia: No Thalassemia: No Sickle Cell Disease: No Clotting Problems: No Psychologic Problems Schizophrenia: No Bipolar Disorder: Yes Depression: Yes Anxiety: No Behavior Problems: No Self-Mutilation: No Attention Deficit Disorder: No Attention Deficit Hyperactivity Disorder: No Depression: No Post Traumatic Stress Disorder: No Eating Disorder: No Other Problems Hospitalization: Yes Down Syndrome: No Autism: No Developmental Delay: No Shingles: No Falls: Yes Blood Transfusions: No Blood Transfusion Reaction: No Anesthesia Reactions: No Organ Transplant: No Chemotherapy: No Radiation Therapy: No Hyperbaric Therapy: No MRSA: No VRSA: No Vancomycin-Resistant Enterococci: No Human Immunodeficiency Virus (HIV): No Chicken Pox: Yes Measles: Yes Mumps: Yes Rubella (Danish Measles): No Pertussis: No Clostridium Difficile: No Cancer: No Cervical Cancer: No Lung Cancer: No Ovarian Cancer: No Surgical History Carotid Endarterectomy: No Coronary Artery Bypass Graft: No Valve Replacement: No Hysterectomy: Yes Pacemaker: No Thyroidectomy: No History of Present Illness HPI Narrative Ms. Suh is a 63-year-old female with past medical history of bipolar disorder who has been off medications for the last several decades because of loss of insurance. She has not seen a physician in many years up until her recent hospitalizations. She reports that she additionally had a history of diabetes which has been resolved with weight loss, A1c during her last hospitalization 5.5. She notes that she has a longstanding history of kidney stones with multiple kidney surgeries and nephrostomy tube placements. She notes that she currently has a stone which is stuck in her kidney wall. Over the last year, she has been hospitalized several times, notably diagnosed with Afib, bradycardia/vasovagal, CVA, HTN crisis, NSTEMI, normocytic anemia, and kidney disease. Her concerns have revolved around her headaches which she relates to HTN, chest pain which she experiences when trying to sleep (as she ruminates on the loss of her ). Recent echocardiogram revealed ejection fraction 55 to 60% with moderate mitral regurgitation. Angiography July 28, 2023 revealed Significant lesion in the LAD and dominant circumflex and a diffusely diseased nondominant RCA, Dr. Schmid recommended bypass surgery. Leyla reports feeling out of sorts as she is moving out of her house 5 years which is traumatic for her as this was the last place that she has lived with her late . Fortunately, she was able to find a new house which she is moving with her family. She endorses doing fairly well but does endorse occasional palpitations. She notes that she does have a little bit more pain recently from moving all the boxes in her house. She still has not obtained labs nor followed up with her referrals. 04/20/2024 - Leyla scheduled a telehealth visit, as she had ran out of her antihypertensive medications, she has no other complaints at the moment, she did report she has trouble finding a ride, as her son is not available right now. 05/03/2024: The patient was scheduled for telehealth visit because of diarrhea for past 6 days. She reported that she had not been able to tolerate any PO intake, and as soon as she take PO she has a bowel movement within 5-10 minutes. Her bowel movements are watery, foul smelling and not tinged with blood or mucus. She denies any sick contact, recent visit to new place, change in food habit, or any antibiotics use. She also denied any dizziness, fever, chills, nausea or vomiting. She tried immodium without any help, requested antidiarrheal medication. 07/13/2024: Patient comes for monthly visit. Had episode of blacking out on Thursday, was seen in ER found to have elevated blood pressure and bradycardia. No further episodes since. Doing well since. Here for refill of medications. No other acute complaints. Blood pressure is good today at 126/78. Labs from ER visit show PRINCESS, will recheck BUN and Cr in 1 week and consider stopping valsartan-HCTZ at that time. Counselled if HR is low, hold metoprolol and emphasized following up with Cardiology. 08/17/2024: Telehealth visit. Patient did not get labs yet. Complains of yeast infection and rash between abdominal folds x 1 week, unrelieved with Ammens powder. Admits malodorous odor, with some drainage. No open wound. Will prescribe empiric nystatin powder and follow up in 1 week. 10/10/2024 Today patient complains of swelling of her bilateral lower extremities. This started about 2 weeks ago and progressively worsened. Upon exam her right lower extremity appears more swollen than her left. Will order bilateral lower extremity venous Doppler ultrasound to rule out DVT. Also patient needs her clonidine prescription is refilled. Told her we will hold her valsartan/HCTZ for now as she still has not repeated her renal panel. Will reorder renal panel today 10/14/2024: Telehealth visit to review labs. Reports was unable to schedule US of BLE due to holidays. Renal panel reviewed, Sodium 137, potassium 4.6, chloride 108, bicarb 22.9, BUN 27, creatinine 1.8 and GFR 31. Patient's renal function Cr 1.2, BUN 16, GFR 51 in July 2023. Will refer patient to Nephrology for further workup. Patient reports taking Clonidine, Metoprolol tartrate, Hydralazine, Isosorbide for BP management, will continue to hold losartan-HCTZ. Patient to follow up in 2 weeks to check blood pressure. 11/09/2024: Phone visit. Patient feeling congested and with dry cough for 1 week with pleuritic rib pain and tiredness. Denies sick contact. No sputum production. Did not check for at home fever with thermometer. Says she gets this dry cough every year, worst with winter months. Suggested using cough medicine and humidified air, if become hypoxic or unable to breathe to go to ER. Labs reviewed. Creatinine improved. Stopped losartan-HCTZ. Patient doing well on amlodipine at home. Med recc done and refills ordered. Recommended patient to come into the clinic next time to evaluate her pain medication regimen. Review of Systems Review of Systems Systems Reviewed: All systems reviewed, normal except as documented Objective/Exam Narrative Physical exam: Limited exam due to phone visit. Assessment & Plan Diagnosis / Problem List (1) Bronchitis: Status: Acute Assessment & Plan: Feeling congested with dry cough, dry throat x 1 week; worst in winter Pleuritic rib pain when coughing Plan: Supportive care, recommended humidifier If symptoms worsen please go to ER (2) CKD (chronic kidney disease): Status: Chronic Plan: -Referral to Nephrology for further workup. -Stop Valsartan-HCTZ -Counselled to maintain adequate hydration. (3) Hypertension: Status: Acute Qualifiers: Hypertension type: primary hypertension Qualified Code(s): I10 - Essential (primary) hypertension Assessment & Plan: Currently on Clonidine, metoprolol tartrate, Hydralazine, Isosorbide mononitrate, amlodipine Cannot check blood pressure at home, does not have cuff at home Plan: Continue amlodipine and rest of home regimen Follow up in clinic to check BP (4) Swelling of right lower extremity: Status: Acute Assessment & Plan: 10/10- On exam patient had bilateral 1+ pitting edema of lower extremities up to her knees bilaterally. However her Right calf appeared more swollen than her left. Ordered B/L lower extremity duplex venous ultrasound to rule out DVT. Plan: -Unable to schedule US of BLE due to holidays. - Previous visit B/L lower extremity duplex venous ultrasound was ordered to rule out DVT, follow up Advanced Care Planning Advance care planning discussed with:: patient Office Procedures [facility] Level of Care Nursing/Assessment Patient Status: Established Patient Nursing Assessment/Reassessment: Medication Reconciliation and Update PMH in EMR Coordination of Care: Complex Care and Chronic Disease 1-5, Consent,records obtained, informed consent, Education Simp Pt/Fam and Staff clarify orders Established Patient Charge Established Patient Point Assignment: 70 Telehealth Telemed Phone/Video with patient at home & Dr,PA,HEALTH SPA MANAGER: Yes
== END 2024-11-09 17:31 | disposition home or self-care (01) ==
LOC: HODAHC 15:18
PROVIDERS: PCP Student in an Organized Health Care Education/Training Program; Referring Provider Student in an Organized Health Care Education/Training Program; Supervising Provider Internal Medicine
DX: J20.9 Acute bronchitis, unspecified (principal); I12.9 Hypertensive chronic kidney disease with stage 1 through stage 4 chronic kidney disease, or unspecified chronic kidney disease; N18.9 Chronic kidney disease, unspecified; R60.0 Localized edema
CPT/HCPCS: 99212; G0463

== ENCOUNTER 2024-12-07 14:36 | Outpatient (AMB) | payer OTHER, SELFPAY ==
--- NOTE | 2024-12-07 14:44 | ACNOTE_ITS ---
Allergies/Meds Allergies & Medications Allergies nifedipine Allergy (Verified 12/09/24 08:16) itching Medication Reconciliation isosorbide mononitrate 60 mg tablet,extended release 24 hr 60 mg PO QDAY chest pain #30 tabs 07/13/24 [Rx Confirmed 12/09/24] gabapentin 600 mg tablet 600 mg PO TID #90 tabs 08/05/24 [Rx Confirmed 12/09/24] atorvastatin 80 mg tablet 80 mg PO QPM 30 days #30 tabs 08/10/24 [Rx Confirmed 12/09/24] clopidogrel 75 mg tablet (Plavix) 75 mg PO QDAY 30 days #30 tabs 08/10/24 [Rx Confirmed 12/09/24] diphenoxylate-atropine 2.5 mg-0.025 mg tablet (Lomotil) 1 tab PO QID PRN diarrhea #30 tabs 09/09/24 [Rx Confirmed 12/09/24] nitroglycerin 0.4 mg sublingual tablet 0.4 mg sublingual Q5-15M PRN chest pain #20 tabs 09/12/24 [Rx Confirmed 12/09/24] amitriptyline 50 mg tablet 50 mg PO QHS #30 tabs 10/10/24 [Rx Confirmed 12/09/24] clonidine HCl 0.1 mg tablet 0.1 mg PO TID #60 tabs 10/10/24 [Rx Confirmed 12/09/24] hydralazine 100 mg tablet 100 mg PO TID 30 days #90 tabs 10/10/24 [Rx Confirmed 12/09/24] hydrocodone 7.5 mg-acetaminophen 325 mg tablet 1 tab PO TID PRN pain #90 tabs 12/07/24 [Rx Confirmed 12/09/24] metoprolol tartrate 25 mg tablet 25 mg PO BID 30 days #60 tabs 12/07/24 [Rx Confirmed 12/09/24] MA Intake Visit Data Collection New Patient or Established: Established Patient (seen at [facility] within 3 years) Seen by Clinical Staff ONLY (RN/MARANDA): No Pain Present Currently: No Pain scale:: 0 Pain Scale Used: Mendez-Qureshi/Numerical Film Tests Checker Required: No PCP or OBGYN visit in last 3 months: No Hx Now: No Do You Feel Safe at Home: Yes Authorities Contacted: N/A Smoking Status Smoking Status: Current every day smoker Cessation Counseling Provided: LEYLA was advised that quitting smoking is the single most important factor to protect the health of themselves and their family. Discussed the benefits of quitting smoking with patient. Encouraged patient to quit smoking and provided Cessation assistance materials and resources. Tobacco Use: Cigarette Years smoked: 10 Are you interested in quitting?: No For Televisit only Telemed Video/Phone Visit: Yes Verbal consent obtained for Telemed visit?: Yes Verbal Consent witness name: rowena callaway Telemed Video/Phone visit w/Clinical Staff: 21-30 min Immunization / Flu Flu Vaccine in the Last 12 Months: No Flu Vaccine Exclusion Criteria: No Exclusion Criteria Past Medical History Past Medical History NEUROLOGIC: Positive Neurological Disorders, Cerebrovascular Accident, Alzheimer's Disease, Peripheral Neuropathy, Migraine and Head Trauma; Negative Transient Ischemic Attacks (TIA), Dementia, Parkinson's Disease, Brain Tumor, Meningitis, Seizures, Epilepsy, Multiple Sclerosis, Cerebral Palsy, Amyotrophic Lateral Sclerosis (ALS/Ada Gehrig's), Guillain-Manheim Syndrome, Spina Bifida, Paralysis, Goins's Palsy, Subdural Hematoma, Spinal Cord Injury or Traumatic Brain Injury CARDIAC: Positive Hypercholesterolemia, Hypertension, Hypotension and Varicose Veins; Negative Cardiac Disorders, Myocardial Infarction, Cardiac Arrhythmia, Atrial Fibrillation, Angina, Heart Murmur, Coronary Artery Disease, Atherosclerotic Heart Disease, Peripheral Vascular Disease, Aneurysm, Congestive Heart Failure, Congenital Heart Disease, Valvular Heart Disease, Rheumatic Fever, Cardiomyopathy, Edema, Pericarditis, Cellulitis or Deep Vein Thrombosis RESPIRATORY: Positive Chronic Obstructive Pulmonary Disease (COPD) and Sleep Apnea; Negative Asthma, Bronchitis, Emphysema, Pneumonia, Pulmonary Fibrosis, Cystic Fibrosis, Tuberculosis, Pulmonary Embolism or Pulmonary Edema GASTROINTESTINAL: Positive Gastrointestinal Disorders, Gall Bladder Disease, Diverticulitis, Diverticulosis, Irritable Bowel, Gastroesophageal Reflux Disease and Obesity; Negative Hepatitis, Cirrhosis, Pancreatitis, Celiac Disease, Gastrointestinal Bleed, Esophageal Varices, Rodriguez's Esophagus, Colitis, Ulcerative Colitis, Ulcer, Colorectal Cancer, Crohn's Disease, Obstructive Bowel, Hiatal Hernia or Hemorrhoids GENITOURINARY: Positive Genitourinary Disorders and Kidney Stones; Negative Renal Disease, Polycystic Kidney Disease, Neurogenic Bladder or Dialysis REPRODUCTIVE: Positive Endometriosis and Previous Pregnancies; Negative Breast Cancer, Pelvic Inflammatory Disease or Uterine Prolapse MUSCULOSKELETAL: Positive Arthritis, Fibromyalgia and Degenerative Joint Disease; Negative Muscular Dystrophy, Myasthenia Gravis, Marfan's Syndrome, Bone Cancer, Rheumatoid Arthritis, Osteoporosis, Degenerative Disk Disease, Gout, Scoliosis, Carpal Tunnel Syndrome, Fractures, Osteomyelitis or Poliovirus ENT: Positive Head Trauma; Negative Cataracts, Glaucoma, Blind, Retinal Detachment, Macular Degeneration, Ear Infection, Deafness or Eye Prosthesis ENDOCRINE: Positive Diabetes Mellitus Type 2; Negative Endocrine Disorders, Diabetes Mellitus Type 1, Hypoglycemia, Phoenix's Syndrome, Bennett's Disease, Hyperthyroidism, Hypothyroidism, Parathyroid Disease, Pituitary Disease, Systemic Lupus Erythematosus, Syndrome of Inappropriate Antidiuretic Hormone (SIADH), Adrenal Disease or Graves' Disease HEMATOLOGIC: Negative Blood Disorders, Anemia, Leukemia, Hemophilia, Thalassemia, Sickle Cell Disease or Clotting Problems PSYCHO/SOCIAL: Positive Psychiatric Problems, Bipolar Disorder and Depression; Negative Schizophrenia, Anxiety, Behavior Problems, Self-Mutilation, Attention Deficit Disorder, Attention Deficit Hyperactivity Disorder, Depression, Post Traumatic Stress Disorder or Eating Disorder OTHER HISTORY: Positive Hospitalization, Falls, Chicken Pox, Measles and Mumps; Negative Down Syndrome, Autism, Developmental Delay, Shingles, Blood Transfusions, Blood Transfusion Reaction, Anesthesia Reactions, Organ Transplant, Chemotherapy, Radiation Therapy, Hyperbaric Therapy, MRSA, VRSA, Vancomycin-Resistant Enterococci, Human Immunodeficiency Virus (HIV), Rubella (Turkish Measles), Pertussis, Clostridium Difficile, Cancer, Breast Cancer, Cervical Cancer, Colorectal Cancer, Lung Cancer or Ovarian Cancer Family History FAMILY HISTORY: Positive Family Psychiatric Problems, Family Cardiac Disorders and Family Gastrointestinal Problems; Negative Family Respiratory Disorders, Family Cancer, Family Surgery or Family Anesthesia Reaction Surgical History SURGICAL: Positive Oral Surgery, Tonsillectomy, Adenoidectomy, Abdominal Surgery, Joint Replacement, Arthroscopy and Hysterectomy; Negative Cardiac Surgery, Open Heart Surgery, Coronary Artery Bypass Graft, Valve Replacement, Vascular Surgery, Coronary Stent, Cardiac Catheterization, Pacemaker, Angiogram, Auto Implanted Cardiovert Defib, Carotid Endarterectomy, Endocrine Surgery, Thyroidectomy, Ear Surgery, Tympanostomy Tube, Eye Surgery, Nose Surgery, Cochlear Implant, Corneal Transplant, Throat Surgery, Tracheost aicha, Gastric Bypass Surgery, Gastrostomy, Bowel Surgery, Nephrectomy, Amputation, Open Reduction Internal Fixation, Neurologic Surgery, Brain Shunt, Mastectomy, Lumpectomy, Tubal Ligation, Section or Organ Transplant Social History SMOKING STATUS: Smoking status: Current every day smoker PACK YEARS: Pack-Years: 17 SECOND HAND EXPOSURE: second hand exposure: No ALCOHOL: Alcohol Intake: Never HOUSING: Housing: House LIVES WITH: Lives With: Family Patient Portal Questionaires Social History Living Situation History Housing: House Housing Other:: Patient resides in a home with her daughter. Tobacco History Smoking Status: Current every day smoker Packs per Day: 1 Pack-Years: 17 Number of Smoking Years (pipe): 10 Second Hand Smoke Exposure: No Alcohol History Alcohol Intake: Never Domestic Abuse History Do You Feel Safe at Home: Yes Review of Systems Report any current symptoms Only answer those that you have currently: Past Medical History Past Medical History Have you ever been diagnosed with any of the following: Neurological Problems Cerebrovascular Accident (CVA): Yes Transient Ischemic Attacks (TIA): No Dementia: No Alzheimer's Disease: Yes Parkinson's Disease: No Brain Tumor: No Meningitis: No Seizures: No Epilepsy: No Multiple Sclerosis: No Cerebral Palsy: No Amyotrophic Lateral Sclerosis (ALS/Ada Gehrig's): No Guillain-Manheim Syndrome: No Spina Bifida: No Paralysis: No Peripheral Neuropathy: Yes Goins's Palsy: No Subdural Hematoma: No Migraine: Yes Head Trauma: Yes Spinal Cord Injury: No Traumatic Brain Injury: No Cardiology Problems Myocardial Infarction: No Cardiac Arrhythmia: No Atrial Fibrillation: No Angina: No Heart Murmur: No Coronary Artery Disease: No Atherosclerotic Heart Disease: No Peripheral Vascular Disease: No Hypercholesterolemia: Yes Aneurysm: No Congestive Heart Failure: No Congenital Heart Disease: No Valvular Heart Disease: No Rheumatic Fever: No Cardiomyopathy: No Edema: No Pericarditis: No Cellulitis: No Deep Vein Thrombosis: No Hypertension: Yes Hypotension: Yes Varicose Veins: Yes Respiratory Problems Chronic Obstructive Pulmonary Disease (COPD): Yes Asthma: No Bronchitis: No Emphysema: No Pneumonia: No Pulmonary Fibrosis: No Tuberculosis: No Pulmonary Embolism: No Pulmonary Edema: No Sleep Apnea: Yes Stomache/Intestinal Problems Hepatitis: No Cirrhosis: No Pancreatitis: No Celiac Disease: No Gall Bladder Disease: Yes Gastrointestinal Bleed: No Esophageal Varices: No Rodriguez's Esophagus: No Colitis: No Ulcerative Colitis: No Diverticulitis: Yes Diverticulosis: Yes Ulcer: No Colorectal Cancer: No Irritable Bowel: Yes Crohn's Disease: No Obstructive Bowel: No Hiatal Hernia: No Hemorrhoids: No Gastroesophageal Reflux Disease: Yes Obesity: Yes Genital/Urinary Problems Renal Disease: No Kidney Stones: Yes Polycystic Kidney Disease: No Neurogenic Bladder: No Dialysis: No Reproductive Problems Breast Cancer: No Endometriosis: Yes Pelvic Inflammatory Disease: No Previous Pregnancies: Yes Uterine Prolapse: No Musculoskeletal Problems Muscular Dystrophy: No Myasthenia Gravis: No Marfan's Syndrome: No Bone Cancer: No Arthritis: Yes Rheumatoid Arthritis: No Osteoporosis: No Degenerative Disk Disease: No Gout: No Scoliosis: No Carpal Tunnel Syndrome: No Fibromyalgia: Yes Fractures: No Degenerative Joint Disease: Yes Osteomyelitis: No Poliovirus: No Head,Eye,Nose,Throat Problems Cataracts: No Glaucoma: No Blind: No Retinal Detachment: No Macular Degeneration: No Chronic Ear Infections: No Deafness: No Eye Prosthesis: No Endocrine Problems Diabetes Mellitus Type 1: No Diabetes Mellitus Type 2: Yes Hypoglycemia: No Phoenix's Syndrome: No Bennett's Disease: No Hyperthyroidism: No Hypothyroidism: No Parathyroid Disease: No Pituitary Disease: No Systemic Lupus Erythematosus: No Syndrome of Inappropriate Antidiuretic Hormone: No Adrenal Disease: No Graves' Disease: No Blood Problems Anemia: No Leukemia: No Hemophilia: No Thalassemia: No Sickle Cell Disease: No Clotting Problems: No Psychologic Problems Schizophrenia: No Bipolar Disorder: Yes Depression: Yes Anxiety: No Behavior Problems: No Self-Mutilation: No Attention Deficit Disorder: No Attention Deficit Hyperactivity Disorder: No Depression: No Post Traumatic Stress Disorder: No Eating Disorder: No Other Problems Hospitalization: Yes Down Syndrome: No Autism: No Developmental Delay: No Shingles: No Falls: Yes Blood Transfusions: No Blood Transfusion Reaction: No Anesthesia Reactions: No Organ Transplant: No Chemotherapy: No Radiation Therapy: No Hyperbaric Therapy: No MRSA: No VRSA: No Vancomycin-Resistant Enterococci: No Human Immunodeficiency Virus (HIV): No Chicken Pox: Yes Measles: Yes Mumps: Yes Rubella (Turkish Measles): No Pertussis: No Clostridium Difficile: No Cancer: No Cervical Cancer: No Lung Cancer: No Ovarian Cancer: No Surgical History Carotid Endarterectomy: No Coronary Artery Bypass Graft: No Valve Replacement: No Hysterectomy: Yes Pacemaker: No Thyroidectomy: No History of Present Illness HPI Narrative Ms. Suh is a 63-year-old female with past medical history of bipolar disorder who has been off medications for the last several decades because of loss of insurance. She has not seen a physician in many years up until her recent hospitalizations. She reports that she additionally had a history of diabetes which has been resolved with weight loss, A1c during her last hospitalization 5.5. She notes that she has a longstanding history of kidney stones with multiple kidney surgeries and nephrostomy tube placements. She notes that she currently has a stone which is stuck in her kidney wall. Over the last year, she has been hospitalized several times, notably diagnosed with Afib, bradycardia/vasovagal, CVA, HTN crisis, NSTEMI, normocytic anemia, and kidney disease. Her concerns have revolved around her headaches which she relates to HTN, chest pain which she experiences when trying to sleep (as she ruminates on the loss of her ). Recent echocardiogram revealed ejection fraction 55 to 60% with moderate mitral regurgitation. Angiography July 28, 2023 revealed Significant lesion in the LAD and dominant circumflex and a diffusely diseased nondominant RCA, Dr. Schmid recommended bypass surgery. Leyla reports feeling out of sorts as she is moving out of her house 5 years which is traumatic for her as this was the last place that she has lived with her late . Fortunately, she was able to find a new house which she is moving with her family. She endorses doing fairly well but does endorse occasional palpitations. She notes that she does have a little bit more pain recently from moving all the boxes in her house. She still has not obtained labs nor followed up with her referrals. 04/20/2024 - Leyla scheduled a telehealth visit, as she had ran out of her antihypertensive medications, she has no other complaints at the moment, she did report she has trouble finding a ride, as her son is not available right now. 05/03/2024: The patient was scheduled for telehealth visit because of diarrhea for past 6 days. She reported that she had not been able to tolerate any PO intake, and as soon as she take PO she has a bowel movement within 5-10 minutes. Her bowel movements are watery, foul smelling and not tinged with blood or mucus. She denies any sick contact, recent visit to new place, change in food habit, or any antibiotics use. She also denied any dizziness, fever, chills, nausea or vomiting. She tried immodium without any help, requested antidiarrheal medication. 07/13/2024: Patient comes for monthly visit. Had episode of blacking out on Thursday, was seen in ER found to have elevated blood pressure and bradycardia. No further episodes since. Doing well since. Here for refill of medications. No other acute complaints. Blood pressure is good today at 126/78. Labs from ER visit show PRINCESS, will recheck BUN and Cr in 1 week and consider stopping valsartan-HCTZ at that time. Counselled if HR is low, hold metoprolol and emphasized following up with Cardiology. 08/17/2024: Telehealth visit. Patient did not get labs yet. Complains of yeast infection and rash between abdominal folds x 1 week, unrelieved with Ammens powder. Admits malodorous odor, with some drainage. No open wound. Will prescribe empiric nystatin powder and follow up in 1 week. 10/10/2024 Today patient complains of swelling of her bilateral lower extremiti es. This started about 2 weeks ago and progressively worsened. Upon exam her right lower extremity appears more swollen than her left. Will order bilateral lower extremity venous Doppler ultrasound to rule out DVT. Also patient needs her clonidine prescription is refilled. Told her we will hold her valsartan/HCTZ for now as she still has not repeated her renal panel. Will reorder renal panel today 10/14/2024: Telehealth visit to review labs. Reports was unable to schedule US of BLE due to holidays. Renal panel reviewed, Sodium 137, potassium 4.6, chloride 108, bicarb 22.9, BUN 27, creatinine 1.8 and GFR 31. Patient's renal function Cr 1.2, BUN 16, GFR 51 in July 2023. Will refer patient to Nephrology for further workup. Patient reports taking Clonidine, Metoprolol tartrate, Hydralazine, Isosorbide for BP management, will continue to hold losartan-HCTZ. Patient to follow up in 2 weeks to check blood pressure. 11/09/2024: Phone visit. Patient feeling congested and with dry cough for 1 week with pleuritic rib pain and tiredness. Denies sick contact. No sputum production. Did not check for at home fever with thermometer. Says she gets this dry cough every year, worst with winter months. Suggested using cough medicine and humidified air, if become hypoxic or unable to breathe to go to ER. Labs reviewed. Creatinine improved. Stopped losartan-HCTZ. Patient doing well on amlodipine at home. Med recc done and refills ordered. Recommended patient to come into the clinic next time to evaluate her pain medication regimen. 12/07/2024: Phone visit. Patient feeling well, recovered from bronchitis. Health- berg doing well. Some at home stressors. Requesting refill on norco and metoprolol. No longer taking buproprion. Objective/Exam Narrative Physical exam: Limited exam due to telephone call. Assessment & Plan Diagnosis / Problem List (1) Hypertension: Status: Chronic Qualifiers: Hypertension type: primary hypertension Qualified Code(s): I10 - Essential (primary) hypertension Assessment & Plan: Currently on Clonidine, metoprolol tartrate, Hydralazine, Isosorbide mononitrate, amlodipine Plan: On amlodipine, clonidine, hydralazine, metoprolol. Plan Refilled home metoprolol Encouraged patient to return for in-person evaluation to follow up on labs, imaging, and check blood pressure. Advanced Care Planning Advance care planning discussed with:: other Office Procedures [facility] Level of Care Nursing/Assessment Patient Status: Established Patient Nursing Assessment/Reassessment: Medication Reconciliation and Update PMH in EMR Coordination of Care: Complex Care and Chronic Disease 1-5, Consent,records obtained, informed consent and Staff clarify orders Established Patient Charge Established Patient Point Assignment: 55 Telehealth Telemed Phone/Video with patient at home & ,PA,SKI PATROL DIRECTOR: Yes
== END 2024-12-07 15:44 | disposition home or self-care (01) ==
LOC: HODAHC 14:36
PROVIDERS: PCP Student in an Organized Health Care Education/Training Program; Referring Provider Student in an Organized Health Care Education/Training Program; Supervising Provider Internal Medicine; Visit Provider Student in an Organized Health Care Education/Training Program
DX: Z09 Encounter for follow-up examination after completed treatment for conditions other than malignant neoplasm (principal); Z87.09 Personal history of other diseases of the respiratory system; Z76.0 Encounter for issue of repeat prescription; I10 Essential (primary) hypertension; Z71.6 Tobacco abuse counseling; F17.210 Nicotine dependence, cigarettes, uncomplicated
CPT/HCPCS: 99212; 99213; G0463

== ENCOUNTER 2024-12-21 14:16 | Outpatient (AMB) | payer OTHER, SELFPAY ==
--- NOTE | 2024-12-21 14:25 | PD.RESCLINIC ---
Allergies/Meds Allergies & Medications Allergies nifedipine Allergy (Verified 12/21/24 14:29) itching Medication Reconciliation isosorbide mononitrate 60 mg tablet,extended release 24 hr 60 mg PO QDAY chest pain #30 tabs 07/13/24 [Rx Confirmed 12/21/24] gabapentin 600 mg tablet 600 mg PO TID #90 tabs 08/05/24 [Rx Confirmed 12/21/24] atorvastatin 80 mg tablet 80 mg PO QPM 30 days #30 tabs 08/10/24 [Rx Confirmed 12/21/24] clopidogrel 75 mg tablet (Plavix) 75 mg PO QDAY 30 days #30 tabs 08/10/24 [Rx Confirmed 12/21/24] diphenoxylate-atropine 2.5 mg-0.025 mg tablet (Lomotil) 1 tab PO QID PRN diarrhea #30 tabs 09/09/24 [Rx Confirmed 12/21/24] nitroglycerin 0.4 mg sublingual tablet 0.4 mg sublingual Q5-15M PRN chest pain #20 tabs 09/12/24 [Rx Confirmed 12/21/24] amitriptyline 50 mg tablet 50 mg PO QHS #30 tabs 10/10/24 [Rx Confirmed 12/21/24] clonidine HCl 0.1 mg tablet 0.1 mg PO TID #60 tabs 10/10/24 [Rx Confirmed 12/21/24] hydralazine 100 mg tablet 100 mg PO TID 30 days #90 tabs 10/10/24 [Rx Confirmed 12/21/24] hydrocodone 7.5 mg-acetaminophen 325 mg tablet 1 tab PO TID PRN pain #90 tabs 12/07/24 [Rx Confirmed 12/21/24] metoprolol tartrate 25 mg tablet 25 mg PO BID 30 days #60 tabs 12/07/24 [Rx Confirmed 12/21/24] amlodipine 5 mg tablet 5 mg PO QDAY 30 days #30 tabs 12/21/24 [Rx Confirmed 12/21/24] amoxicillin 875 mg-potassium clavulanate 125 mg tablet 1 tab PO BID #14 tabs 12/21/24 [Rx Confirmed 12/21/24] MA Intake Visit Data Collection New Patient or Established: Established Patient (seen at [facility] within 3 years) Seen by Clinical Staff ONLY (RN/MA): No Pain Present Currently: No Pain scale:: 0 Pain Scale Used: Mendez-Qureshi/Numerical General Farmworker Required: No Hx Now: No Do You Feel Safe at Home: Yes Authorities Contacted: N/A Smoking Status Smoking Status: Current every day smoker Cessation Counseling Provided: KAREEN was advised that quitting smoking is the single most important factor to protect the health of themselves and their family. Discussed the benefits of quitting smoking with patient. Encouraged patient to quit smoking and provided Cessation assistance materials and resources. For Televisit only Telemed Video/Phone Visit: Yes Verbal consent obtained for Telemed visit?: Yes Verbal Consent witness name: VERONICA JAFFE MA Telemed Video/Phone visit w/Clinical Staff: 21-30 min Immunization / Flu Flu Vaccine in the Last 12 Months: No Flu Vaccine Exclusion Criteria: No Exclusion Criteria Past Medical History Past Medical History NEUROLOGIC: Positive Neurological Disorders, Cerebrovascular Accident, Alzheimer's Disease, Peripheral Neuropathy, Migraine and Head Trauma; Negative Transient Ischemic Attacks (TIA), Dementia, Parkinson's Disease, Brain Tumor, Meningitis, Seizures, Epilepsy, Multiple Sclerosis, Cerebral Palsy, Amyotrophic Lateral Sclerosis (ALS/Ada Gehrig's), Guillain-Glendale Syndrome, Spina Bifida, Paralysis, Goins's Palsy, Subdural Hematoma, Spinal Cord Injury or Traumatic Brain Injury CARDIAC: Positive Hypercholesterolemia, Hypertension, Hypotension and Varicose Veins; Negative Cardiac Disorders, Myocardial Infarction, Cardiac Arrhythmia, Atrial Fibrillation, Angina, Heart Murmur, Coronary Artery Disease, Atherosclerotic Heart Disease, Peripheral Vascular Disease, Aneurysm, Congestive Heart Failure, Congenital Heart Disease, Valvular Heart Disease, Rheumatic Fever, Cardiomyopathy, Edema, Pericarditis, Cellulitis or Deep Vein Thrombosis RESPIRATORY: Positive Chronic Obstructive Pulmonary Disease (COPD) and Sleep Apnea; Negative Asthma, Bronchitis, Emphysema, Pneumonia, Pulmonary Fibrosis, Cystic Fibrosis, Tuberculosis, Pulmonary Embolism or Pulmonary Edema GASTROINTESTINAL: Positive Gastrointestinal Disorders, Gall Bladder Disease, Diverticulitis, Diverticulosis, Irritable Bowel, Gastroesophageal Reflux Disease and Obesity; Negative Hepatitis, Cirrhosis, Pancreatitis, Celiac Disease, Gastrointestinal Bleed, Esophageal Varices, Rodriguez's Esophagus, Colitis, Ulcerative Colitis, Ulcer, Colorectal Cancer, Crohn's Disease, Obstructive Bowel, Hiatal Hernia or Hemorrhoids GENITOURINARY: Positive Genitourinary Disorders and Kidney Stones; Negative Renal Disease, Polycystic Kidney Disease, Neurogenic Bladder or Dialysis REPRODUCTIVE: Positive Endometriosis and Previous Pregnancies; Negative Breast Cancer, Pelvic Inflammatory Disease or Uterine Prolapse MUSCULOSKELETAL: Positive Arthritis, Fibromyalgia and Degenerative Joint Disease; Negative Muscular Dystrophy, Myasthenia Gravis, Marfan's Syndrome, Bone Cancer, Rheumatoid Arthritis, Osteoporosis, Degenerative Disk Disease, Gout, Scoliosis, Carpal Tunnel Syndrome, Fractures, Osteomyelitis or Poliovirus ENT: Positive Head Trauma; Negative Cataracts, Glaucoma, Blind, Retinal Detachment, Macular Degeneration, Ear Infection, Deafness or Eye Prosthesis ENDOCRINE: Positive Diabetes Mellitus Type 2; Negative Endocrine Disorders, Diabetes Mellitus Type 1, Hypoglycemia, Ree's Syndrome, Douglas's Disease, Hyperthyroidism, Hypothyroidism, Parathyroid Disease, Pituitary Disease, Systemic Lupus Erythematosus, Syndrome of Inappropriate Antidiuretic Hormone (SIADH), Adrenal Disease or Graves' Disease HEMATOLOGIC: Negative Blood Disorders, Anemia, Leukemia, Hemophilia, Thalassemia, Sickle Cell Disease or Clotting Problems PSYCHO/SOCIAL: Positive Psychiatric Problems, Bipolar Disorder and Depression; Negative Schizophrenia, Anxiety, Behavior Problems, Self-Mutilation, Attention Deficit Disorder, Attention Deficit Hyperactivity Disorder, Depression, Post Traumatic Stress Disorder or Eating Disorder OTHER HISTORY: Positive Hospitalization, Falls, Chicken Pox, Measles and Mumps; Negative Down Syndrome, Autism, Developmental Delay, Shingles, Blood Transfusions, Blood Transfusion Reaction, Anesthesia Reactions, Organ Transplant, Chemotherapy, Radiation Therapy, Hyperbaric Therapy, MRSA, VRSA, Vancomycin-Resistant Enterococci, Human Immunodeficiency Virus (HIV), Rubella (Ecuadorean Measles), Pertussis, Clostridium Difficile, Cancer, Breast Cancer, Cervical Cancer, Colorectal Cancer, Lung Cancer or Ovarian Cancer Family History FAMILY HISTORY: Positive Family Psychiatric Problems, Family Cardiac Disorders and Family Gastrointestinal Problems; Negative Family Respiratory Disorders, Family Cancer, Family Surgery or Family Anesthesia Reaction Surgical History SURGICAL: Positive Oral Surgery, Tonsillectomy, Adenoidectomy, Abdominal Surgery, Joint Replacement, Arthroscopy and Hysterectomy; Negative Cardiac Surgery, Open Heart Surgery, Coronary Artery Bypass Graft, Valve Replacement, Vascular Surgery, Coronary Stent, Cardiac Catheterization, Pacemaker, Angiogram, Auto Implanted Cardiovert Defib, Carotid Endarterectomy, Endocrine Surgery, Thyroidectomy, Ear Surgery, Tympanostomy Tube, Eye Surgery, Nose Surgery, Cochlear Implant, Corneal Transplant, Throat Surgery, Tracheostomy, Gastric Bypass Surgery, Gastrostomy, Bowel Surgery, Nephrectomy, Amputation, Open Reduction Internal Fixation, Neurologic Surgery, Brain Shunt, Mastectomy, Lumpectomy, Tubal Ligation, Section or Organ Transplant Social History SMOKING STATUS: Smoking status: Current every day smoker PACK YEARS: Pack-Years: 17 SECOND HAND EXPOSURE: second hand exposure: No ALCOHOL: Alcohol Intake: Never HOUSING: Housing: House LIVES WITH: Lives With: Family Patient Lelo Sosa Social History Living Situation History Housing: House Housing Other:: Patient resides in a home with her daughter. Tobacco History Smoking Status: Current every day smoker Packs per Day: 1 Pack-Years: 17 Number of Smoking Years (pipe): 10 Second Hand Smoke Exposure: No Alcohol History Alcohol Intake: Never Domestic Abuse History Do You Feel Safe at Home: Yes Review of Systems Report any current symptoms Only answer those that you have currently: Past Medical History Past Medical History Have you ever been diagnosed with any of the following: Neurological Problems Cerebrovascular Accident (CVA): Yes Transient Ischemic Attacks (TIA): No Dementia: No Alzheimer's Disease: Yes Parkinson's Disease: No Brain Tumor: No Meningitis: No Seizures: No Epilepsy: No Multiple Sclerosis: No Cerebral Palsy: No Amyotrophic Lateral Sclerosis (ALS/Ada Gehrig's): No Guillain-Glendale Syndrome: No Spina Bifida: No Paralysis: No Peripheral Neuropathy: Yes Goins's Palsy: No Subdural Hematoma: No Migraine: Yes Head Trauma: Yes Spinal Cord Injury: No Traumatic Brain Injury: No Cardiology Problems Myocardial Infarction: No Cardiac Arrhythmia: No Atrial Fibrillation: No Angina: No Heart Murmur: No Coronary Artery Disease: No Atherosclerotic Heart Disease: No Peripheral Vascular Disease: No Hypercholesterolemia: Yes Aneurysm: No Congestive Heart Failure: No Congenital Heart Disease: No Valvular Heart Disease: No Rheumatic Fever: No Cardiomyopathy: No Edema: No Pericarditis: No Cellulitis: No Deep Vein Thrombosis: No Hypertension: Yes Hypotension: Yes Varicose Veins: Yes Respiratory Problems Chronic Obstructive Pulmonary Disease (COPD): Yes Asthma: No Bronchitis: No Emphysema: No Pneumonia: No Pulmonary Fibrosis: No Tuberculosis: No Pulmonary Embolism: No Pulmonary Edema: No Sleep Apnea: Yes Stomache/Intestinal Problems Hepatitis: No Cirrhosis: No Pancreatitis: No Celiac Disease: No Gall Bladder Disease: Yes Gastrointestinal Bleed: No Esophageal Varices: No Rodriguez's Esophagus: No Colitis: No Ulcerative Colitis: No Diverticulitis: Yes Diverticulosis: Yes Ulcer: No Colorectal Cancer: No Irritable Bowel: Yes Crohn's Disease: No Obstructive Bowel: No Hiatal Hernia: No Hemorrhoids: No Gastroesophageal Reflux Disease: Yes Obesity: Yes Genital/Urinary Problems Renal Disease: No Kidney Stones: Yes Polycystic Kidney Disease: No Neurogenic Bladder: No Dialysis: No Reproductive Problems Breast Cancer: No Endometriosis: Yes Pelvic Inflammatory Disease: No Previous Pregnancies: Yes Uterine Prolapse: No Musculoskeletal Problems Muscular Dystrophy: No Myasthenia Gravis: No Marfan's Syndrome: No Bone Cancer: No Arthritis: Yes Rheumatoid Arthritis: No Osteoporosis: No Degenerative Disk Disease: No Gout: No Scoliosis: No Carpal Tunnel Syndrome: No Fibromyalgia: Yes Fractures: No Degenerative Joint Disease: Yes Osteomyelitis: No Poliovirus: No Head,Eye,Nose,Throat Problems Cataracts: No Glaucoma: No Blind: No Retinal Detachment: No Macular Degeneration: No Chronic Ear Infections: No Deafness: No Eye Prosthesis: No Endocrine Problems Diabetes Mellitus Type 1: No Diabetes Mellitus Type 2: Yes Hypoglycemia: No Ree's Syndrome: No Bennett's Disease: No Hyperthyroidism: No Hypothyroidism: No Parathyroid Disease: No Pituitary Disease: No Systemic Lupus Erythematosus: No Syndrome of Inappropriate Antidiuretic Hormone: No Adrenal Disease: No Graves' Disease: No Blood Problems Anemia: No Leukemia: No Hemophilia: No Thalassemia: No Sickle Cell Disease: No Clotting Problems: No Psychologic Problems Schizophrenia: No Bipolar Disorder: Yes Depression: Yes Anxiety: No Behavior Problems: No Self-Mutilation: No Attention Deficit Disorder: No Attention Deficit Hyperactivity Disorder: No Depression: No Post Traumatic Stress Disorder: No Eating Disorder: No Other Problems Hospitalization: Yes Down Syndrome: No Autism: No Developmental Delay: No Shingles: No Falls: Yes Blood Transfusions: No Blood Transfusion Reaction: No Anesthesia Reactions: No Organ Transplant: No Chemotherapy: No Radiation Therapy: No Hyperbaric Therapy: No MRSA: No VRSA: No Vancomycin-Resistant Enterococci: No Human Immunodeficiency Virus (HIV): No Chicken Pox: Yes Measles: Yes Mumps: Yes Rubella (Ecuadorean Measles): No Pertussis: No Clostridium Difficile: No Cancer: No Cervical Cancer: No Lung Cancer: No Ovarian Cancer: No Surgical History Carotid Endarterectomy: No Coronary Artery Bypass Graft: No Valve Replacement: No Hysterectomy: Yes Pacemaker: No Thyroidectomy: No Office Procedures [facility] Level of Care Nursing/Assessment Patient Status: Established Patient Nursing Assessment/Reassessment: Medication Reconciliation and Update PMH in EMR Coordination of Care: Complex Care and Chronic Disease 1-5, Consent,records obtained, informed consent, Education Simp Pt/Fam and Staff clarify orders Established Patient Charge Established Patient Point Assignment: 70 Telehealth Telemed Phone/Video with patient at home & Dr,PA,FRONT END LOADER DRIVER: Yes
== END 2024-12-21 16:05 | disposition home or self-care (01) ==
LOC: HODAHC 14:16
PROVIDERS: PCP Student in an Organized Health Care Education/Training Program; Referring Provider Student in an Organized Health Care Education/Training Program; Supervising Provider Internal Medicine; Visit Provider Student in an Organized Health Care Education/Training Program
DX: Z76.0 Encounter for issue of repeat prescription (principal); I10 Essential (primary) hypertension; K04.7 Periapical abscess without sinus
CPT/HCPCS: 99212; G0463

== ENCOUNTER 2024-12-28 14:07 | Outpatient (AMB) | payer OTHER, SELFPAY ==
--- NOTE | 2024-12-28 15:28 | PD.RESCLINIC ---
Allergies/Meds Allergies & Medications Allergies nifedipine Allergy (Verified 12/21/24 14:29) itching MA Intake Visit Data Collection PCP or OBGYN visit in last 3 months: Yes Smoking Status Smoking Status: Current every day smoker Cessation Counseling Provided: KAREEN was advised that quitting smoking is the single most important factor to protect the health of themselves and their family. Discussed the benefits of quitting smoking with patient. Encouraged patient to quit smoking and provided Cessation assistance materials and resources. Tobacco Use: Cigarette Years smoked: 10 Are you interested in quitting?: No Immunization / Flu Flu Vaccine in the Last 12 Months: No Flu Vaccine Exclusion Criteria: No Exclusion Criteria Past Medical History Past Medical History NEUROLOGIC: Positive Neurological Disorders, Cerebrovascular Accident, Alzheimer's Disease, Peripheral Neuropathy, Migraine and Head Trauma; Negative Transient Ischemic Attacks (TIA), Dementia, Parkinson's Disease, Brain Tumor, Meningitis, Seizures, Epilepsy, Multiple Sclerosis, Cerebral Palsy, Amyotrophic Lateral Sclerosis (ALS/Ada Gehrig's), Guillain-Gunnison Syndrome, Spina Bifida, Paralysis, Goins's Palsy, Subdural Hematoma, Spinal Cord Injury or Traumatic Brain Injury CARDIAC: Positive Hypercholesterolemia, Hypertension, Hypotension and Varicose Veins; Negative Cardiac Disorders, Myocardial Infarction, Cardiac Arrhythmia, Atrial Fibrillation, Angina, Heart Murmur, Coronary Artery Disease, Atherosclerotic Heart Disease, Peripheral Vascular Disease, Aneurysm, Congestive Heart Failure, Congenital Heart Disease, Valvular Heart Disease, Rheumatic Fever, Cardiomyopathy, Edema, Pericarditis, Cellulitis or Deep Vein Thrombosis RESPIRATORY: Positive Chronic Obstructive Pulmonary Disease (COPD) and Sleep Apnea; Negative Asthma, Bronchitis, Emphysema, Pneumonia, Pulmonary Fibrosis, Cystic Fibrosis, Tuberculosis, Pulmonary Embolism or Pulmonary Edema GASTROINTESTINAL: Positive Gastrointestinal Disorders, Gall Bladder Disease, Diverticulitis, Diverticulosis, Irritable Bowel, Gastroesophageal Reflux Disease and Obesity; Negative Hepatitis, Cirrhosis, Pancreatitis, Celiac Disease, Gastrointestinal Bleed, Esophageal Varices, Rodriguez's Esophagus, Colitis, Ulcerative Colitis, Ulcer, Colorectal Cancer, Crohn's Disease, Obstructive Bowel, Hiatal Hernia or Hemorrhoids GENITOURINARY: Positive Genitourinary Disorders and Kidney Stones; Negative Renal Disease, Polycystic Kidney Disease, Neurogenic Bladder or Dialysis REPRODUCTIVE: Positive Endometriosis and Previous Pregnancies; Negative Breast Cancer, Pelvic Inflammatory Disease or Uterine Prolapse MUSCULOSKELETAL: Positive Arthritis, Fibromyalgia and Degenerative Joint Disease; Negative Muscular Dystrophy, Myasthenia Gravis, Marfan's Syndrome, Bone Cancer, Rheumatoid Arthritis, Osteoporosis, Degenerative Disk Disease, Gout, Scoliosis, Carpal Tunnel Syndrome, Fractures, Osteomyelitis or Poliovirus ENT: Positive Head Trauma; Negative Cataracts, Glaucoma, Blind, Retinal Detachment, Macular Degeneration, Ear Infection, Deafness or Eye Prosthesis ENDOCRINE: Positive Diabetes Mellitus Type 2; Negative Endocrine Disorders, Diabetes Mellitus Type 1, Hypoglycemia, Ree's Syndrome, Ephraim's Disease, Hyperthyroidism, Hypothyroidism, Parathyroid Disease, Pituitary Disease, Systemic Lupus Erythematosus, Syndrome of Inappropriate Antidiuretic Hormone (SIADH), Adrenal Disease or Graves' Disease HEMATOLOGIC: Negative Blood Disorders, Anemia, Leukemia, Hemophilia, Thalassemia, Sickle Cell Disease or Clotting Problems PSYCHO/SOCIAL: Positive Psychiatric Problems, Bipolar Disorder and Depression; Negative Schizophrenia, Anxiety, Behavior Problems, Self-Mutilation, Attention Deficit Disorder, Attention Deficit Hyperactivity Disorder, Depression, Post Traumatic Stress Disorder or Eating Disorder OTHER HISTORY: Positive Hospitalization, Falls, Chicken Pox, Measles and Mumps; Negative Down Syndrome, Autism, Developmental Delay, Shingles, Blood Transfusions, Blood Transfusion Reaction, Anesthesia Reactions, Organ Transplant, Chemotherapy, Radiation Therapy, Hyperbaric Therapy, MRSA, VRSA, Vancomycin-Resistant Enterococci, Human Immunodeficiency Virus (HIV), Rubella (Spanish Measles), Pertussis, Clostridium Difficile, Cancer, Breast Cancer, Cervical Cancer, Colorectal Cancer, Lung Cancer or Ovarian Cancer Family History FAMILY HISTORY: Positive Family Psychiatric Problems, Family Cardiac Disorders and Family Gastrointestinal Problems; Negative Family Respiratory Disorders, Family Cancer, Family Surgery or Family Anesthesia Reaction Surgical History SURGICAL: Positive Oral Surgery, Tonsillectomy, Adenoidectomy, Abdominal Surgery, Joint Replacement, Arthroscopy and Hysterectomy; Negative Cardiac Surgery, Open Heart Surgery, Coronary Artery Bypass Graft, Valve Replacement, Vascular Surgery, Coronary Stent, Cardiac Catheterization, Pacemaker, Angiogram, Auto Implanted Cardiovert Defib, Carotid Endarterectomy, Endocrine Surgery, Thyroidectomy, Ear Surgery, Tympanostomy Tube, Eye Surgery, Nose Surgery, Cochlear Implant, Corneal Transplant, Throat Surgery, Tracheostomy, Gastric Bypass Surgery, Gastrostomy, Bowel Surgery, Nephrectomy, Amputation, Open Reduction Internal Fixation, Neurologic Surgery, Brain Shunt, Mastectomy, Lumpectomy, Tubal Ligation, Section or Organ Transplant Social History SMOKING STATUS: Smoking status: Current every day smoker PACK YEARS: Pack-Years: 17 SECOND HAND EXPOSURE: second hand exposure: No ALCOHOL: Alcohol Intake: Never HOUSING: Housing: House LIVES WITH: Lives With: Family Patient Portal Questionaires Social History Living Situation History Housing: House Housing Other:: Patient resides in a home with her daughter. Tobacco History Smoking Status: Current every day smoker Packs per Day: 1 Pack-Years: 17 Number of Smoking Years (pipe): 10 Second Hand Smoke Exposure: No Alcohol History Alcohol Intake: Never Review of Systems Report any current symptoms Only answer those that you have currently: Past Medical History Past Medical History Have you ever been diagnosed with any of the following: Neurological Problems Cerebrovascular Accident (CVA): Yes Transient Ischemic Attacks (TIA): No Dementia: No Alzheimer's Disease: Yes Parkinson's Disease: No Brain Tumor: No Meningitis: No Seizures: No Epilepsy: No Multiple Sclerosis: No Cerebral Palsy: No Amyotrophic Lateral Sclerosis (ALS/Ada Gehrig's): No Guillain-Gunnison Syndrome: No Spina Bifida: No Paralysis: No Peripheral Neuropathy: Yes Goins's Palsy: No Subdural Hematoma: No Migraine: Yes Head Trauma: Yes Spinal Cord Injury: No Traumatic Brain Injury: No Cardiology Problems Myocardial Infarction: No Cardiac Arrhythmia: No Atrial Fibrillation: No Angina: No Heart Murmur: No Coronary Artery Disease: No Atherosclerotic Heart Disease: No Peripheral Vascular Disease: No Hypercholesterolemia: Yes Aneurysm: No Congestive Heart Failure: No Congenital Heart Disease: No Valvular Heart Disease: No Rheumatic Fever: No Cardiomyopathy: No Edema: No Pericarditis: No Cellulitis: No Deep Vein Thrombosis: No Hypertension: Yes Hypotension: Yes Varicose Veins: Yes Respiratory Problems Chronic Obstructive Pulmonary Disease (COPD): Yes Asthma: No Bronchitis: No Emphysema: No Pneumonia: No Pulmonary Fibrosis: No Tuberculosis: No Pulmonary Embolism: No Pulmonary Edema: No Sleep Apnea: Yes Stomache/Intestinal Problems Hepatitis: No Cirrhosis: No Pancreatitis: No Celiac Disease: No Gall Bladder Disease: Yes Gastrointestinal Bleed: No Esophageal Varices: No Rodriguez's Esophagus: No Colitis: No Ulcerative Colitis: No Diverticulitis: Yes Diverticulosis: Yes Ulcer: No Colorectal Cancer: No Irritable Bowel: Yes Crohn's Disease: No Obstructive Bowel: No Hiatal Hernia: No Hemorrhoids: No Gastroesophageal Reflux Disease: Yes Obesity: Yes Genital/Urinary Problems Renal Disease: No Kidney Stones: Yes Polycystic Kidney Disease: No Neurogenic Bladder: No Dialysis: No Reproductive Problems Breast Cancer: No Endometriosis: Yes Pelvic Inflammatory Disease: No Previous Pregnancies: Yes Uterine Prolapse: No Musculoskeletal Problems Muscular Dystrophy: No Myasthenia Gravis: No Marfan's Syndrome: No Bone Cancer: No Arthritis: Yes Rheumatoid Arthritis: No Osteoporosis: No Degenerative Disk Disease: No Gout: No Scoliosis: No Carpal Tunnel Syndrome: No Fibromyalgia: Yes Fractures: No Degenerative Joint Disease: Yes Osteomyelitis: No Poliovirus: No Head,Eye,Nose,Throat Problems Cataracts: No Glaucoma: No Blind: No Retinal Detachment: No Macular Degeneration: No Chronic Ear Infections: No Deafness: No Eye Prosthesis: No Endocrine Problems Diabetes Mellitus Type 1: No Diabetes Mellitus Type 2: Yes Hypoglycemia: No Clifton's Syndrome: No Ephraim's Disease: No Hyperthyroidism: No Hypothyroidism: No Parathyroid Disease: No Pituitary Disease: No Systemic Lupus Erythematosus: No Syndrome of Inappropriate Antidiuretic Hormone: No Adrenal Disease: No Graves' Disease: No Blood Problems Anemia: No Leukemia: No Hemophilia: No Thalassemia: No Sickle Cell Disease: No Clotting Problems: No Psychologic Problems Schizophrenia: No Bipolar Disorder: Yes Depression: Yes Anxiety: No Behavior Problems: No Self-Mutilation: No Attention Deficit Disorder: No Attention Deficit Hyperactivity Disorder: No Depression: No Post Traumatic Stress Disorder: No Eating Disorder: No Other Problems Hospitalization: Yes Down Syndrome: No Autism: No Developmental Delay: No Shingles: No Falls: Yes Blood Transfusions: No Blood Transfusion Reaction: No Anesthesia Reactions: No Organ Transplant: No Chemotherapy: No Radiation Therapy: No Hyperbaric Therapy: No MRSA: No VRSA: No Vancomycin-Resistant Enterococci: No Human Immunodeficiency Virus (HIV): No Chicken Pox: Yes Measles: Yes Mumps: Yes Rubella (Spanish Measles): No Pertussis: No Clostridium Difficile: No Cancer: No Cervical Cancer: No Lung Cancer: No Ovarian Cancer: No Surgical History Carotid Endarterectomy: No Coronary Artery Bypass Graft: No Valve Replacement: No Hysterectomy: Yes Pacemaker: No Thyroidectomy: No History of Present Illness HPI Narrative Ms. Suh is a 63-year-old female with past medical history of bipolar disorder who has been off medications for the last several decades because of loss of insurance. She has not seen a physician in many years up until her recent hospitalizations. She reports that she additionally had a history of diabetes which has been resolved with weight loss, A1c during her last hospitalization 5.5. She notes that she has a longstanding history of kidney stones with multiple kidney surgeries and nephrostomy tube placements. She notes that she currently has a stone which is stuck in her kidney wall. Over the last year, she has been hospitalized several times, notably diagnosed with Afib, bradycardia/vasovagal, CVA, HTN crisis, NSTEMI, normocytic anemia, and kidney disease. Her concerns have revolved around her headaches which she relates to HTN, chest pain which she experiences when trying to sleep (as she ruminates on the loss of her ). Recent echocardiogram revealed ejection fraction 55 to 60% with moderate mitral regurgitation. Angiography July 28, 2023 revealed Significant lesion in the LAD and dominant circumflex and a diffusely diseased nondominant RCA, Dr. Schmid recommended bypass surgery. Kareen reports feeling out of sorts as she is moving out of her house 5 years which is traumatic for her as this was the last place that she has lived with her late . Fortunately, she was able to find a new house which she is moving with her family. She endorses doing fairly well but does endorse occasional palpitations. She notes that she does have a little bit more pain recently from moving all the boxes in her house. She still has not obtained labs nor followed up with her referrals. 04/20/2024 - Kareen scheduled a telehealth visit, as she had ran out of her antihypertensive medications, she has no other complaints at the moment, she did report she has trouble finding a ride, as her son is not available right now. 05/03/2024: The patient was scheduled for telehealth visit because of diarrhea for past 6 days. She reported that she had not been able to tolerate any PO intake, and as soon as she take PO she has a bowel movement within 5-10 minutes. Her bowel movements are watery, foul smelling and not tinged with blood or mucus. She denies any sick contact, recent visit to new place, change in food habit, or any antibiotics use. She also denied any dizziness, fever, chills, nausea or vomiting. She tried immodium without any help, requested antidiarrheal medication. 07/13/2024: Patient comes for monthly visit. Had episode of blacking out on Thursday, was seen in ER found to have elevated blood pressure and bradycardia. No further episodes since. Doing well since. Here for refill of medications. No other acute complaints. Blood pressure is good today at 126/78. Labs from ER visit show PRINCESS, will recheck BUN and Cr in 1 week and consider stopping valsartan-HCTZ at that time. Counselled if HR is low, hold metoprolol and emphasized following up with Cardiology. 08/17/2024: Telehealth visit. Patient did not get labs yet. Complains of yeast infection and rash between abdominal folds x 1 week, unrelieved with Ammens powder. Admits malodorous odor, with some drainage. No open wound. Will prescribe empiric nystatin powder and follow up in 1 week. 10/10/2024 Today patient complains of swelling of her bilateral lower extremities. This started about 2 weeks ago and progressively worsened. Upon exam her right lower extremity appears more swollen than her left. Will order bilateral lower extremity venous Doppler ultrasound to rule out DVT. Also patient needs her clonidine prescription is refilled. Told her we will hold her valsartan/HCTZ for now as she still has not repeated her renal panel. Will reorder renal panel today 10/14/2024: Telehealth visit to review labs. Reports was unable to schedule US of BLE due to holidays. Renal panel reviewed, Sodium 137, potassium 4.6, chloride 108, bicarb 22.9, BUN 27, creatinine 1.8 and GFR 31. Patient's renal function Cr 1.2, BUN 16, GFR 51 in July 2023. Will refer patient to Nephrology for further workup. Patient reports taking Clonidine, Metoprolol tartrate, Hydralazine, Isosorbide for BP management, will continue to hold losartan-HCTZ. Patient to follow up in 2 weeks to check blood pressure. 11/09/2024: Phone visit. Patient feeling congested and with dry cough for 1 week with pleuritic rib pain and tiredness. Denies sick contact. No sputum production. Did not check for at home fever with thermometer. Says she gets this dry cough every year, worst with winter months. Suggested using cough medicine and humidified air, if become hypoxic or unable to breathe to go to ER. Labs reviewed. Creatinine improved. Stopped losartan-HCTZ. Patient doing well on amlodipine at home. Med recc done and refills ordered. Recommended patient to come into the clinic next time to evaluate her pain medication regimen. 12/07/2024: Phone visit. Patient feeling well, recovered from bronchitis. Health-berg doing well. Some at home stressors. Requesting refill on norco and metoprolol. No longer taking buproprion. 12/21/2024: Phone visit. Patient requesting refill for amlodipine and for antibiotics for a tooth infection. Patient ate a piece of chicken and broke her tooth, causing significant pain. She was told by her dentist that she needs some antibiotics before they can operate the tooth. Will send script for Augmentin for 1 week. Otherwise patient doing well, reports her BP has been well controlled. 12/28/2024: Phone visit. 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 Denies incontinence, shooting pain, numbness or tingling. Endorses difficulty walking and pain upon lying down. Tried BioFlex, heat. Pain not improved with patient's chronic pain meds. Will try 1 week of baclofen and a Medrol Montez for inflammation. Reviewed red flag signs for back pain and recommend patient to go to ER if develops shooting pain or incontinence/urinary retention due to back pain. Tooth pain resolved. Objective/Exam Narrative Physical exam: Telephone visit. Assessment & Plan Diagnosis / Problem List (1) Back pain due to injury: Status: Acute Assessment & Plan: Sudden onset right sided lower back pain upon after picking up [place]. Unrelieved with NSAIDs, heat. No incontinence, shooting pain Plan: - Baclofen 5mg TID x 1 week - Medrol Montez - Counselled on exercise, stretching (2) Tooth infection: Status: Resolved Assessment & Plan: Completed course of antibiotics. No longer in pain. Additional Assessment Internal Medicine Attending Note: Case discussed with and agree with note and management plan of Resident Physician as per Resident's Note above. Issues of concern for present visit are as follows: Acute visit requested by patient and completed via phone. 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 No incontinence, radicular symptoms, numbness, or tingling. Is noting difficulty with walking and pain with lying down. Patient is on chronic narcotic pain medication. We will give 1 week of baclofen and the Medrol pack for inflammation. Patient advised of red flag signs for back pain for which to proceed to the emergency department. Rivera Kent MD Advanced Care Planning Advance care planning discussed with:: patient Physician Billing Established Patient Established Patient: E/M Level 2-CPT [id number]
== END 2024-12-28 14:44 | disposition home or self-care (01) ==
LOC: HODAHC 14:07
PROVIDERS: PCP Student in an Organized Health Care Education/Training Program; Referring Provider Student in an Organized Health Care Education/Training Program; Supervising Provider Internal Medicine; Visit Provider Student in an Organized Health Care Education/Training Program
DX: S39.92XA Unspecified injury of lower back, initial encounter (principal); X50.1XXA Overexertion from prolonged static or awkward postures, initial encounter; Y93.89 Activity, other specified
CPT/HCPCS: 99212; G0463

== ENCOUNTER 2025-04-07 13:40 | Outpatient (AMB) | payer OTHER, SELFPAY ==
[2025-04-07 14:21] VITALS: BP 166/73; PULSE 71; RESP 16; TEMP 36.6; O2SAT 97; BMI 27.7
--- NOTE | 2025-04-07 14:21 | PD.RESCLINIC ---
Vital Signs 04/07/25 14:21 Height 1.68 m Height Method Stated Weight 78.018 kg Weight Measurement Method Standing Scale BMI 27.7 BP 166/73 H Blood Pressure Source Automatic Cuff Blood Pressure Location Right Upper Arm Position Sitting Respiration 16 Pulse 71 Pulse Source Monitor Temp 98 F Temp Source Oral Pulse Oximetry (%) 97 Oxygen Delivery Method Room Air Allergies/Meds Allergies & Medications Allergies nifedipine Allergy (Verified 04/07/25 14:22) itching Medication Reconciliation amlodipine 10 mg tablet 10 mg PO QDAY Hypertension #30 tabs 04/07/25 [Rx] atorvastatin 80 mg tablet 80 mg PO QPM 30 days #30 tabs 04/07/25 [Rx] clonidine HCl 0.1 mg tablet 0.1 mg PO TID #90 tabs 04/07/25 [Rx] clopidogrel 75 mg tablet (Plavix) 75 mg PO QDAY 30 days #30 tabs 04/07/25 [Rx] duloxetine 30 mg capsule,delayed release 30 mg PO QDAY Chronic Neuropathic Pain #30 caps 04/07/25 [Rx] gabapentin 600 mg tablet 600 mg PO TID #90 tabs 04/07/25 [Rx] hydralazine 100 mg tablet 100 mg PO TID 30 days #90 tabs 04/07/25 [Rx] hydrocodone 7.5 mg-acetaminophen 325 mg tablet 1 tab PO TID PRN pain #90 tabs 04/07/25 [Rx] isosorbide mononitrate 60 mg tablet,extended release 24 hr 60 mg PO QDAY chest pain #30 tabs 04/07/25 [Rx] metoprolol tartrate 25 mg tablet 25 mg PO BID 30 days #60 tabs 04/07/25 [Rx] MA Intake Visit Data Collection New Patient or Established: Established Patient (seen at [facility] within 3 years) Seen by Clinical Staff ONLY (RN/MA): No Reason for Visit:: FOLLOW UP Pain Present Currently: No Pain scale:: 0 Pain Scale Used: MendezCarmen/Numerical Human Resources Consultant Required: No PCP or OBGYN visit in last 3 months: Yes Hx Now: No Smoking Status Smoking Status: Current every day smoker Cessation Counseling Provided: LEYLA was advised that quitting smoking is the single most important factor to protect the health of themselves and their family. Discussed the benefits of quitting smoking with patient. Encouraged patient to quit smoking and provided Cessation assistance materials and resources. Tobacco Use: Cigarette Years smoked: 50 Are you interested in quitting?: Yes Would you like additional Smoking Cessation Counseling?: Yes Immunization / Flu Flu Vaccine in the Last 12 Months: No Flu Vaccine Exclusion Criteria: No Exclusion Criteria Past Medical History Past Medical History NEUROLOGIC: Positive Neurological Disorders, Cerebrovascular Accident, Alzheimer's Disease, Peripheral Neuropathy, Migraine and Head Trauma; Negative Transient Ischemic Attacks (TIA), Dementia, Parkinson's Disease, Brain Tumor, Meningitis, Seizures, Epilepsy, Multiple Sclerosis, Cerebral Palsy, Amyotrophic Lateral Sclerosis (ALS/Ada Gehrig's), Guillain-Lonsdale Syndrome, Spina Bifida, Paralysis, Goins's Palsy, Subdural Hematoma, Spinal Cord Injury or Traumatic Brain Injury CARDIAC: Positive Hypercholesterolemia, Hypertension, Hypotension and Varicose Veins; Negative Cardiac Disorders, Myocardial Infarction, Cardiac Arrhythmia, Atrial Fibrillation, Angina, Heart Murmur, Coronary Artery Disease, Atherosclerotic Heart Disease, Peripheral Vascular Disease, Aneurysm, Congestive Heart Failure, Congenital Heart Disease, Valvular Heart Disease, Rheumatic Fever, Cardiomyopathy, Edema, Pericarditis, Cellulitis or Deep Vein Thrombosis RESPIRATORY: Positive Chronic Obstructive Pulmonary Disease (COPD) and Sleep Apnea; Negative Asthma, Bronchitis, Emphysema, Pneumonia, Pulmonary Fibrosis, Cystic Fibrosis, Tuberculosis, Pulmonary Embolism or Pulmonary Edema GASTROINTESTINAL: Positive Gastrointestinal Disorders, Gall Bladder Disease, Diverticulitis, Diverticulosis, Irritable Bowel, Gastroesophageal Reflux Disease and Obesity; Negative Hepatitis, Cirrhosis, Pancreatitis, Celiac Disease, Gastrointestinal Bleed, Esophageal Varices, Rodriguez's Esophagus, Colitis, Ulcerative Colitis, Ulcer, Colorectal Cancer, Crohn's Disease, Obstructive Bowel, Hiatal Hernia or Hemorrhoids GENITOURINARY: Positive Genitourinary Disorders and Kidney Stones; Negative Renal Disease, Polycystic Kidney Disease, Neurogenic Bladder or Dialysis REPRODUCTIVE: Positive Endometriosis and Previous Pregnancies; Negative Breast Cancer, Pelvic Inflammatory Disease or Uterine Prolapse MUSCULOSKELETAL: Positive Arthritis, Fibromyalgia and Degenerative Joint Disease; Negative Muscular Dystrophy, Myasthenia Gravis, Marfan's Syndrome, Bone Cancer, Rheumatoid Arthritis, Osteoporosis, Degenerative Disk Disease, Gout, Scoliosis, Carpal Tunnel Syndrome, Fractures, Osteomyelitis or Poliovirus ENT: Positive Head Trauma; Negative Cataracts, Glaucoma, Blind, Retinal Detachment, Macular Degeneration, Ear Infection, Deafness or Eye Prosthesis ENDOCRINE: Positive Diabetes Mellitus Type 2; Negative Endocrine Disorders, Diabetes Mellitus Type 1, Hypoglycemia, Ree's Syndrome, Sabine's Disease, Hyperthyroidism, Hypothyroidism, Parathyroid Disease, Pituitary Disease, Systemic Lupus Erythematosus, Syndrome of Inappropriate Antidiuretic Hormone (SIADH), Adrenal Disease or Graves' Disease HEMATOLOGIC: Negative Blood Disorders, Anemia, Leukemia, Hemophilia, Thalassemia, Sickle Cell Disease or Clotting Problems PSYCHO/SOCIAL: Positive Psychiatric Problems, Bipolar Disorder and Depression; Negative Schizophrenia, Anxiety, Behavior Problems, Self-Mutilation, Attention Deficit Disorder, Attention Deficit Hyperactivity Disorder, Depression, Post Traumatic Stress Disorder or Eating Disorder OTHER HISTORY: Positive Hospitalization, Falls, Chicken Pox, Measles and Mumps; Negative Down Syndrome, Autism, Developmental Delay, Shingles, Blood Transfusions, Blood Transfusion Reaction, Anesthesia Reactions, Organ Transplant, Chemotherapy, Radiation Therapy, Hyperbaric Therapy, MRSA, VRSA, Vancomycin-Resistant Enterococci, Human Immunodeficiency Virus (HIV), Rubella (Tamazight Measles), Pertussis, Clostridium Difficile, Cancer, Breast Cancer, Cervical Cancer, Colorectal Cancer, Lung Cancer or Ovarian Cancer Family History FAMILY HISTORY: Positive Family Psychiatric Problems, Family Cardiac Disorders and Family Gastrointestinal Problems; Negative Family Respiratory Disorders, Family Cancer, Family Surgery or Family Anesthesia Reaction Surgical History SURGICAL: Positive Oral Surgery, Tonsillectomy, Adenoidectomy, Abdominal Surgery, Joint Replacement, Arthroscopy and Hysterectomy; Negative Cardiac Surgery, Open Heart Surgery, Coronary Artery Bypass Graft, Valve Replacement, Vascular Surgery, Coronary Stent, Cardiac Catheterization, Pacemaker, Angiogram, Auto Implanted Cardiovert Defib, Carotid Endarterectomy, Endocrine Surgery, Thyroidectomy, Ear Surgery, Tympanostomy Tube, Eye Surgery, Nose Surgery, Cochlear Implant, Corneal Transplant, Throat Surgery, Tracheostomy, Gastric Bypass Surgery, Gastrostomy, Bowel Surgery, Nephrectomy, Amputation, Open Reduction Internal Fixation, Neurologic Surgery, Brain Shunt, Mastectomy, Lumpectomy, Tubal Ligation, Section or Organ Transplant Social History SMOKING STATUS: Smoking status: Current every day smoker PACK YEARS: Pack-Years: 17 SECOND HAND EXPOSURE: second hand exposure: No ALCOHOL: Alcohol Intake: Never HOUSING: Housing: House LIVES WITH: Lives With: Family Patient Portal Questionaires PHQ-9 PHQ-2 Over the last 2 weeks, how often have you been bothered by any of the following problems? 1. Little interest or pleasure in doing things: not at all 2. Feeling down, depressed, or hopeless: not at all Total score: 0 PHQ-9 3. Trouble falling or staying asleep, or sleeping too much: Not at all 4. Feeling tired or having little energy: Not at all 5. Poor appetite or overeating: Not at all 6. Feeling bad about yourself - or that you are a failure or have let yourself or your family down: Not at all 7. Trouble concentrating on things, such as reading the newspaper or watching television: Not at all 8. Moving or speaking so slowly that other people could have noticed? - Or the opposite - being so fidgety or restless that you have been moving around a lot more than usual: not at all 9. Thoughts that you would be better off or of hurting yourself in some way: Not at all Total score: 0 Source: Developed by Drs. Gt Miller, Teresa Long, Andrew Lund and colleagues, with an educational oral from [employer]. Depression screen completed yes Social History Living Situation History Housing: House Housing Other:: Patient resides in a home with her daughter. Tobacco History Smoking Status: Current every day smoker Packs per Day: 1 Pack-Years: 17 Number of Smoking Years (pipe): 10 Second Hand Smoke Exposure: No Alcohol History Alcohol Intake: Never Review of Systems Report any current symptoms Only answer those that you have currently: Past Medical History Past Medical History Have you ever been diagnosed with any of the following: Neurological Problems Cerebrovascular Accident (CVA): Yes Transient Ischemic Attacks (TIA): No Dementia: No Alzheimer's Disease: Yes Parkinson's Disease: No Brain Tumor: No Meningitis: No Seizures: No Epilepsy: No Multiple Sclerosis: No Cerebral Palsy: No Amyotrophic Lateral Sclerosis (ALS/Ada Gehrig's): No Guillain-Lonsdale Syndrome: No Spina Bifida: No Paralysis: No Peripheral Neuropathy: Yes Goins's Palsy: No Subdural Hematoma: No Migraine: Yes Head Trauma: Yes Spinal Cord Injury: No Traumatic Brain Injury: No Cardiology Problems Myocardial Infarction: No Cardiac Arrhythmia: No Atrial Fibrillation: No Angina: No Heart Murmur: No Coronary Artery Disease: No Atherosclerotic Heart Disease: No Peripheral Vascular Disease: No Hypercholesterolemia: Yes Aneurysm: No Congestive Heart Failure: No Congenital Heart Disease: No Valvular Heart Disease: No Rheumatic Fever: No Cardiomyopathy: No Edema: No Pericarditis: No Cellulitis: No Deep Vein Thrombosis: No Hypertension: Yes Hypotension: Yes Varicose Veins: Yes Respiratory Problems Chronic Obstructive Pulmonary Disease (COPD): Yes Asthma: No Bronchitis: No Emphysema: No Pneumonia: No Pulmonary Fibrosis: No Tuberculosis: No Pulmonary Embolism: No Pulmonary Edema: No Sleep Apnea: Yes Stomache/Intestinal Problems Hepatitis: No Cirrhosis: No Pancreatitis: No Celiac Disease: No Gall Bladder Disease: Yes Gastrointestinal Bleed: No Esophageal Varices: No Rodriguez's Esophagus: No Colitis: No Ulcerative Colitis: No Diverticulitis: Yes Diverticulosis: Yes Ulcer: No Colorectal Cancer: No Irritable Bowel: Yes Crohn's Disease: No Obstructive Bowel: No Hiatal Hernia: No Hemorrhoids: No Gastroesophageal Reflux Disease: Yes Obesity: Yes Genital/Urinary Problems Renal Disease: No Kidney Stones: Yes Polycystic Kidney Disease: No Neurogenic Bladder: No Dialysis: No Reproductive Problems Breast Cancer: No Endometriosis: Yes Pelvic Inflammatory Disease: No Previous Pregnancies: Yes Uterine Prolapse: No Musculoskeletal Problems Muscular Dystrophy: No Myasthenia Gravis: No Marfan's Syndrome: No Bone Cancer: No Arthritis: Yes Rheumatoid Arthritis: No Osteoporosis: No Degenerative Disk Disease: No Gout: No Scoliosis: No Carpal Tunnel Syndrome: No Fibromyalgia: Yes Fractures: No Degenerative Joint Disease: Yes Osteomyelitis: No Poliovirus: No Head,Eye,Nose,Throat Problems Cataracts: No Glaucoma: No Blind: No Retinal Detachment: No Macular Degeneration: No Chronic Ear Infections: No Deafness: No Eye Prosthesis: No Endocrine Problems Diabetes Mellitus Type 1: No Diabetes Mellitus Type 2: Yes Hypoglycemia: No [place]'s Syndrome: No Sabine's Disease: No Hyperthyroidism: No Hypothyroidism: No Parathyroid Disease: No Pituitary Disease: No Systemic Lupus Erythematosus: No Syndrome of Inappropriate Antidiuretic Hormone: No Adrenal Disease: No Graves' Disease: No Blood Problems Anemia: No Leukemia: No Hemophilia: No Thalassemia: No Sickle Cell Disease: No Clotting Problems: No Psychologic Problems Schizophrenia: No Bipolar Disorder: Yes Depression: Yes Anxiety: No Behavior Problems: No Self-Mutilation: No Attention Deficit Disorder: No Attention Deficit Hyperactivity Disorder: No Depression: No Post Traumatic Stress Disorder: No Eating Disorder: No Other Problems Hospitalization: Yes Down Syndrome: No Autism: No Developmental Delay: No Shingles: No Falls: Yes Blood Transfusions: No Blood Transfusion Reaction: No Anesthesia Reactions: No Organ Transplant: No Chemotherapy: No Radiation Therapy: No Hyperbaric Therapy: No MRSA: No VRSA: No Vancomycin-Resistant Enterococci: No Human Immunodeficiency Virus (HIV): No Chicken Pox: Yes Measles: Yes Mumps: Yes Rubella (Tamazight Measles): No Pertussis: No Clostridium Difficile: No Cancer: No Cervical Cancer: No Lung Cancer: No Ovarian Cancer: No Surgical History Carotid Endarterectomy: No Coronary Artery Bypass Graft: No Valve Replacement: No Hysterectomy: Yes Pacemaker: No Thyroidectomy: No History of Present Illness HPI Narrative Ms. Suh is a 63-year-old female with past medical history of bipolar disorder who has been off medications for the last several decades because of loss of insurance. She has not seen a physician in many years up until her recent hospitalizations. She reports that she additionally had a history of diabetes which has been resolved with weight loss, A1c during her last hospitalization 5.5. She notes that she has a longstanding history of kidney stones with multiple kidney surgeries and nephrostomy tube placements. She notes that she currently has a stone which is stuck in her kidney wall. Over the last year, she has been hospitalized several times, notably diagnosed with Afib, bradycardia/vasovagal, CVA, HTN crisis, NSTEMI, normocytic anemia, and kidney disease. Her concerns have revolved around her headaches which she relates to HTN, chest pain which she experiences when trying to sleep (as she ruminates on the loss of her ). Recent echocardiogram revealed ejection fraction 55 to 60% with moderate mitral regurgitation. Angiography July 28, 2023 revealed Significant lesion in the LAD and dominant circumflex and a diffusely diseased nondominant RCA, Dr. Schmid recommended bypass surgery. Leyla reports feeling out of sorts as she is moving out of her house 5 years which is traumatic for her as this was the last place that she has lived with her late . Fortunately, she was able to find a new house which she is moving with her family. She endorses doing fairly well but does endorse occasional palpitations. She notes that she does have a little bit more pain recently from moving all the boxes in her house. She still has not obtained labs nor followed up with her referrals. 04/20/2024 - Leyla scheduled a telehealth visit, as she had ran out of her antihypertensive medications, she has no other complaints at the moment, she did report she has trouble finding a ride, as her son is not available right now. 05/03/2024: The patient was scheduled for telehealth visit because of diarrhea for past 6 days. She reported that she had not been able to tolerate any PO intake, and as soon as she take PO she has a bowel movement within 5-10 minutes. Her bowel movements are watery, foul smelling and not tinged with blood or mucus. She denies any sick contact, recent visit to new place, change in food habit, or any antibiotics use. She also denied any dizziness, fever, chills, nausea or vomiting. She tried immodium without any help, requested antidiarrheal medication. 07/13/2024: Patient comes for monthly visit. Had episode of blacking out on Thursday, was seen in ER found to have elevated blood pressure and bradycardia. No further episodes since. Doing well since. Here for refill of medications. No other acute complaints. Blood pressure is good today at 126/78. Labs from ER visit show PRINCESS, will recheck BUN and Cr in 1 week and consider stopping valsartan-HCTZ at that time. Counselled if HR is low, hold metoprolol and emphasized following up with Cardiology. 08/17/2024: Telehealth visit. Patient did not get labs yet. Complains of yeast infection and rash between abdominal folds x 1 week, unrelieved with Ammens powder. Admits malodorous odor, with some drainage. No open wound. Will prescribe empiric nystatin powder and follow up in 1 week. 10/10/2024 Today patient complains of swelling of her bilateral lower extremities. This started about 2 weeks ago and progressively worsened. Upon exam her right lower extremity appears more swollen than her left. Will order bilateral lower extremity venous Doppler ultrasound to rule out DVT. Also patient needs her clonidine prescription is refilled. Told her we will hold her valsartan/HCTZ for now as she still has not repeated her renal panel. Will reorder renal panel today 10/14/2024: Telehealth visit to review labs. Reports was unable to schedule US of BLE due to holidays. Renal panel reviewed, Sodium 137, potassium 4.6, chloride 108, bicarb 22.9, BUN 27, creatinine 1.8 and GFR 31. Patient's renal function Cr 1.2, BUN 16, GFR 51 in July 2023. Will refer patient to Nephrology for further workup. Patient reports taking Clonidine, Metoprolol tartrate, Hydralazine, Isosorbide for BP management, will continue to hold losartan-HCTZ. Patient to follow up in 2 weeks to check blood pressure. 11/09/2024: Phone visit. Patient feeling congested and with dry cough for 1 week with pleuritic rib pain and tiredness. Denies sick contact. No sputum production. Did not check for at home fever with thermometer. Says she gets this dry cough every year, worst with winter months. Suggested using cough medicine and humidified air, if become hypoxic or unable to breathe to go to ER. Labs reviewed. Creatinine improved. Stopped losartan-HCTZ. Patient doing well on amlodipine at home. Med recc done and refills ordered. Recommended patient to come into the clinic next time to evaluate her pain medication regimen. 12/07/2024: Phone visit. Patient feeling well, recovered from bronchitis. Health-berg doing well. Some at home stressors. Requesting refill on norco and metoprolol. No longer taking buproprion. 12/21/2024: Phone visit. Patient requesting refill for amlodipine and for antibiotics for a tooth infection. Patient ate a piece of chicken and broke her tooth, causing significant pain. She was told by her dentist that she needs some antibiotics before they can operate the tooth. Will send script for Augmentin for 1 week. Otherwise patient doing well, reports her BP has been well controlled. 12/28/2024: Phone visit. 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 Denies incontinence, shooting pain, numbness or tingling. Endorses difficulty walking and pain upon lying down. Tried BioFlex, heat. Pain not improved with patient's chronic pain meds. Will try 1 week of baclofen and a Medrol [place] for inflammation. Reviewed red flag signs for back pain and recommend patient to go to ER if develops shooting pain or incontinence/urinary retention due to back pain. Tooth pain resolved. 04/07/2025: In person clinic visit seen for follow-up. Patient requesting refill on all medication. Patient noted to have elevated blood pressure reading of 166/73 and reports of chronic back pain. Patient was prescribed muscle relaxant in the past which caused her dizziness and fall, patient is maxed out on gabapentin we will add duloxetine 30 mg daily and assess response. We will add amlodipine 10 mg daily to improve blood pressure control, does have underlying bilateral lower extremity edema we will monitor response. Patient was recommended bypass surgery by machinist mechanic in 2022 as patient has significant lesion in LAD and dominant circumflex with nondominant RCA diffusely diseased. Patient has strongly disagreed with above recommendation, discussed with patient extensively and patient agreed that she would like to follow-up with a different machinist mechanic for improved management. Will refer to machinist mechanic Dr. Lazo. Review of Systems Review of Systems Systems Reviewed: All systems reviewed, normal except as documented Objective/Exam Narrative Physical exam: Physical Exam General: Awake and in no acute distress. Conversational and non-toxic appearing. HEENT: Normocephalic, atraumatic, mucous membranes moist. Heart: Regular rate and rhythm, no murmurs. Lungs: Clear to auscultation with no wheezing or crackles. Abdomen: Soft, nondistended, nontender, positive bowel sounds. ?No guarding or rebound tenderness. Paraspinal Tenderness Lumbar region. Neurologic: Alert and oriented x3, no gross neurological deficit, and patient able to move all 4 extremities. Extremities: 1+ BLE edema. Skin: No rash or ecchymoses. Assessment & Plan Diagnosis / Problem List (1) Back pain due to injury: Status: Acute Assessment & Plan: Patient has chronic back pain on gabapentin 600 mg 3 times daily, uses [place] 7.5?3 25 3 times daily as needed for pain management as well. Patient also noted to have paraspinal tenderness on physical exam Plan: - Patient on high-dose opiate, counseled on judicious use - Will add duloxetine 30 mg p.o. daily - Has tried muscle relaxant in past had dizziness and fall after using past. - Follow-up as needed to uptitrate duloxetine (2) Hypertension: Status: Acute Qualifiers: Hypertension type: primary hypertension Qualified Code(s): I10 - Essential (primary) hypertension Assessment & Plan: Patient has poorly controlled hypertension, blood pressure reading 166/73 Currently being managed on clonidine 0.1 mg 3 times daily, hydralazine 100 mg 3 times daily, metoprolol tartrate 25 p.o. twice daily and isosorbide 60 mg p.o. daily Does have some 1+ bilateral lower extremity edema Plan: - Will add amlodipine 10 mg p.o. daily - Referral to cardiology for blood pressure optimization and cardiac restratification - Continue atorvastatin 80 mg at bedtime - Chronic active smoker, advised to stop smoking, tobacco cessation education provided (3) Coronary artery disease: Status: Chronic Qualifiers: Associated angina: without angina Coronary Disease-Associated Artery/Lesion type: ely sh[place] artery [place] vs. transplanted heart: [place] heart Qualified Code(s): I25.10 - Atherosclerotic heart disease of ely shosh[place] coronary artery without angina pectoris Assessment & Plan: Patient denies any active chest pain. On chart review patient was recommended bypass surgery by machinist mechanic in 2022 as patient has significant lesion in LAD and dominant circumflex with nondominant RCA diffusely diseased. Patient has strongly disagreed with above recommendation, discussed with patient extensively and patient agreed that she would like to follow-up with a different machinist mechanic for improved management. Plan: - Will refer to machinist mechanic Dr. Lazo. Checked with machinist mechanic office patient can be seen with current insurance. Orders: Referrals Cardiology I16.0 - Hypertensive urgency, I21.9 - Acute myocardial infarction, unspecified, R07.9 - Chest pain, unspecified Additional Plan Case discussed with Attending Dr. Kent. Lashawn Morgan PGY1 Disclaimer: This note was dictated by speech recognition. Minor errors in resident physician may be present due to voice recognition software. Advanced Care Planning Advance care planning discussed with:: patient Physician Billing Established Patient Established Patient: E/M Level 3-CPT 28072 Office Procedures [facility] Level of Care Nursing/Assessment Patient Status: Established Patient Nursing Assessment/Reassessment: Medication Reconciliation, Update PMH in EMR and Vital Signs Coordination of Care: Complex Care and Chronic Disease 1-5, Consent,records obtained, informed consent, Education Simp Pt/Fam, Lab and Imaging orders, Results/Orders obtained and Staff clarify orders Established Patient Charge Established Patient Point Assignment: 105 Established Patient Point Charge: Level 3 (80-115)
== END 2025-04-07 14:48 | disposition home or self-care (01) ==
LOC: HODAHC 13:40
PROVIDERS: Supervising Provider Student in an Organized Health Care Education/Training Program; Visit Provider Student in an Organized Health Care Education/Training Program
DX: M54.9 Dorsalgia, unspecified (principal); R60.0 Localized edema; G89.29 Other chronic pain; I10 Essential (primary) hypertension; I25.10 Atherosclerotic heart disease of native coronary artery without angina pectoris; Z71.6 Tobacco abuse counseling; F17.210 Nicotine dependence, cigarettes, uncomplicated; Z76.0 Encounter for issue of repeat prescription
CPT/HCPCS: 99213; G0463

== ENCOUNTER 2025-05-08 15:32 | Outpatient (AMB) | payer OTHER, SELFPAY ==
--- NOTE | 2025-05-08 15:36 | PD.RESCLINIC ---
Vital Signs 05/08/25 15:46 Height 1.68 m Height Method Stated Weight 77.111 kg Weight Measurement Method Standing Scale BMI 27.3 BP 160/70 H Blood Pressure Source Automatic Cuff Blood Pressure Location Left Upper Arm Position Sitting Respiration 18 Pulse 90 Pulse Source Monitor Temp 97.8 F Temp Source Temporal Artery Scan Pulse Oximetry (%) 96 Oxygen Delivery Method Room Air Allergies/Meds Allergies & Medications Allergies nifedipine Allergy (Verified 05/08/25 15:49) itching Medication Reconciliation amlodipine 10 mg tablet 10 mg PO QDAY Hypertension #30 tabs 04/07/25 [Rx Confirmed 05/08/25] atorvastatin 80 mg tablet 80 mg PO QPM 30 days #30 tabs 04/07/25 [Rx Confirmed 05/08/25] clopidogrel 75 mg tablet (Plavix) 75 mg PO QDAY 30 days #30 tabs 04/07/25 [Rx Confirmed 05/08/25] duloxetine 30 mg capsule,delayed release 30 mg PO QDAY Chronic Neuropathic Pain #30 caps 04/07/25 [Rx Confirmed 05/08/25] gabapentin 600 mg tablet 600 mg PO TID #90 tabs 04/07/25 [Rx Confirmed 05/08/25] hydralazine 100 mg tablet 100 mg PO TID 30 days #90 tabs 04/07/25 [Rx Confirmed 05/08/25] isosorbide mononitrate 60 mg tablet,extended release 24 hr 60 mg PO QDAY chest pain #30 tabs 04/07/25 [Rx Confirmed 05/08/25] clonidine HCl 0.2 mg tablet 0.2 mg PO TID 30 days #90 tabs 05/08/25 [Rx] hydrocodone 7.5 mg-acetaminophen 325 mg tablet 1 tab PO TID PRN pain #90 tabs 05/08/25 [Rx] metoprolol tartrate 25 mg tablet 25 mg PO BID 60 days #120 tabs 05/08/25 [Rx] tizanidine 2 mg tablet 2 mg PO Q8H PRN muscle spasticity #30 tabs 05/08/25 [Rx] MA Intake Visit Data Collection New Patient or Established: Established Patient (seen at [facility] within 3 years) Seen by Clinical Staff ONLY (RN/MA): No Pain Present Currently: No Pain scale:: 0 Pain Scale Used: MendezRenardQureshi/Numerical Order Fulfillment Specialist Required: No PCP or OBGYN visit in last 3 months: No Hx Now: No Do You Feel Safe at Home: Yes Authorities Contacted: N/A Smoking Status Smoking Status: Current every day smoker Cessation Counseling Provided: LEYLA was advised that quitting smoking is the single most important factor to protect the health of themselves and their family. Discussed the benefits of quitting smoking with patient. Encouraged patient to quit smoking and provided Cessation assistance materials and resources. Tobacco Use: Cigarette Years smoked: 25 Are you interested in quitting?: No Immunization / Flu Flu Vaccine in the Last 12 Months: No Flu Vaccine Exclusion Criteria: No Exclusion Criteria Past Medical History Past Medical History NEUROLOGIC: Positive Neurological Disorders, Cerebrovascular Accident, Alzheimer's Disease, Peripheral Neuropathy, Migraine and Head Trauma; Negative Transient Ischemic Attacks (TIA), Dementia, Parkinson's Disease, Brain Tumor, Meningitis, Seizures, Epilepsy, Multiple Sclerosis, Cerebral Palsy, Amyotrophic Lateral Sclerosis (ALS/Ada Gehrig's), Guillain-[place] Syndrome, Spina Bifida, Paralysis, Goins's Palsy, Subdural Hematoma, Spinal Cord Injury or Traumatic Brain Injury CARDIAC: Positive Hypercholesterolemia, Hypertension, Hypotension and Varicose Veins; Negative Cardiac Disorders, Myocardial Infarction, Cardiac Arrhythmia, Atrial Fibrillation, Angina, Heart Murmur, Coronary Artery Disease, Atherosclerotic Heart Disease, Peripheral Vascular Disease, Aneurysm, Congestive Heart Failure, Congenital Heart Disease, Valvular Heart Disease, Rheumatic Fever, Cardiomyopathy, Edema, Pericarditis, Cellulitis or Deep Vein Thrombosis RESPIRATORY: Positive Chronic Obstructive Pulmonary Disease (COPD) and Sleep Apnea; Negative Asthma, Bronchitis, Emphysema, Pneumonia, Pulmonary Fibrosis, Cystic Fibrosis, Tuberculosis, Pulmonary Embolism or Pulmonary Edema GASTROINTESTINAL: Positive Gastrointestinal Disorders, Gall Bladder Disease, Diverticulitis, Diverticulosis, Irritable Bowel, Gastroesophageal Reflux Disease and Obesity; Negative Hepatitis, Cirrhosis, Pancreatitis, Celiac Disease, Gastrointestinal Bleed, Esophageal Varices, Rodriguez's Esophagus, Colitis, Ulcerative Colitis, Ulcer, Colorectal Cancer, Crohn's Disease, Obstructive Bowel, Hiatal Hernia or Hemorrhoids GENITOURINARY: Positive Genitourinary Disorders and Kidney Stones; Negative Renal Disease, Polycystic Kidney Disease, Neurogenic Bladder or Dialysis REPRODUCTIVE: Positive Endometriosis and Previous Pregnancies; Negative Breast Cancer, Pelvic Inflammatory Disease or Uterine Prolapse MUSCULOSKELETAL: Positive Arthritis, Fibromyalgia and Degenerative Joint Disease; Negative Muscular Dystrophy, Myasthenia Gravis, Marfan's Syndrome, Bone Cancer, Rheumatoid Arthritis, Osteoporosis, Degenerative Disk Disease, Gout, Scoliosis, Carpal Tunnel Syndrome, Fractures, Osteomyelitis or Poliovirus ENT: Positive Head Trauma; Negative Cataracts, Glaucoma, Blind, Retinal Detachment, Macular Degeneration, Ear Infection, Deafness or Eye Prosthesis ENDOCRINE: Positive Diabetes Mellitus Type 2; Negative Endocrine Disorders, Diabetes Mellitus Type 1, Hypoglycemia, Ree's Syndrome, Bennett's Disease, Hyperthyroidism, Hypothyroidism, Parathyroid Disease, Pituitary Disease, Systemic Lupus Erythematosus, Syndrome of Inappropriate Antidiuretic Hormone (SIADH), Adrenal Disease or Graves' Disease HEMATOLOGIC: Negative Blood Disorders, Anemia, Leukemia, Hemophilia, Thalassemia, Sickle Cell Disease or Clotting Problems PSYCHO/SOCIAL: Positive Psychiatric Problems, Bipolar Disorder and Depression; Negative Schizophrenia, Anxiety, Behavior Problems, Self-Mutilation, Attention Deficit Disorder, Attention Deficit Hyperactivity Disorder, Depression, Post Traumatic Stress Disorder or Eating Disorder OTHER HISTORY: Positive Hospitalization, Falls, Chicken Pox, Measles and Mumps; Negative Down Syndrome, Autism, Developmental Delay, Shingles, Blood Transfusions, Blood Transfusion Reaction, Anesthesia Reactions, Organ Transplant, Chemotherapy, Radiation Therapy, Hyperbaric Therapy, MRSA, VRSA, Vancomycin-Resistant Enterococci, Human Immunodeficiency Virus (HIV), Rubella ([place] Measles), Pertussis, Clostridium Difficile, Cancer, Breast Cancer, Cervical Cancer, Colorectal Cancer, Lung Cancer or Ovarian Cancer Family History FAMILY HISTORY: Positive Family Psychiatric Problems, Family Cardiac Disorders and Family Gastrointestinal Problems; Negative Family Respiratory Disorders, Family Cancer, Family Surgery or Family Anesthesia Reaction Surgical History SURGICAL: Positive Oral Surgery, Tonsillectomy, Adenoidectomy, Abdominal Surgery, Joint Replacement, Arthroscopy and Hysterectomy; Negative Cardiac Surgery, Open Heart Surgery, Coronary Artery Bypass Graft, Valve Replacement, Vascular Surgery, Coronary Stent, Cardiac Catheterization, Pacemaker, Angiogram, Auto Implanted Cardiovert Defib, Carotid Endarterectomy, Endocrine Surgery, Thyroidectomy, Ear Surgery, Tympanostomy Tube, Eye Surgery, Nose Surgery, Cochlear Implant, Corneal Transplant, Throat Surgery, Tracheostomy, Gastric Bypass Surgery, Gastrostomy, Bowel Surgery, Nephrectomy, Amputation, Open Reduction Internal Fixation, Neurologic Surgery, Brain Shunt, Mastectomy, Lumpectomy, Tubal Ligation, Section or Organ Transplant Social History SMOKING STATUS: Smoking status: Current every day smoker PACK YEARS: Pack-Years: 17 SECOND HAND EXPOSURE: second hand exposure: No ALCOHOL: Alcohol Intake: Never HOUSING: Housing: House LIVES WITH: Lives With: Family Patient Portal Questionaires PHQ-9 PHQ-2 Over the last 2 weeks, how often have you been bothered by any of the following problems? 1. Little interest or pleasure in doing things: not at all PHQ-9 8. Moving or speaking so slowly that other people could have noticed? - Or the opposite - being so fidgety or restless that you have been moving around a lot more than usual: not at all Source: Developed by Drs. Gt Miller, Teresa Long, Andrew Lund and colleagues, with an educational oral from [employer]. Social History Living Situation History Housing: House Housing Other:: Patient resides in a home with her daughter. Tobacco History Smoking Status: Current every day smoker Packs per Day: 1 Pack-Years: 17 Number of Smoking Years (pipe): 10 Second Hand Smoke Exposure: No Alcohol History Alcohol Intake: Never Domestic Abuse History Do You Feel Safe at Home: Yes Review of Systems Report any current symptoms Only answer those that you have currently: Past Medical History Past Medical History Have you ever been diagnosed with any of the following: Neurological Problems Cerebrovascular Accident (CVA): Yes Transient Ischemic Attacks (TIA): No Dementia: No Alzheimer's Disease: Yes Parkinson's Disease: No Brain Tumor: No Meningitis: No Seizures: No Epilepsy: No Multiple Sclerosis: No Cerebral Palsy: No Amyotrophic Lateral Sclerosis (ALS/Ada Gehrig's): No Guillain-[place] Syndrome: No Spina Bifida: No Paralysis: No Peripheral Neuropathy: Yes Goins's Palsy: No Subdural Hematoma: No Migraine: Yes Head Trauma: Yes Spinal Cord Injury: No Traumatic Brain Injury: No Cardiology Problems Myocardial Infarction: No Cardiac Arrhythmia: No Atrial Fibrillation: No Angina: No Heart Murmur: No Coronary Artery Disease: No Atherosclerotic Heart Disease: No Peripheral Vascular Disease: No Hypercholesterolemia: Yes Aneurysm: No Congestive Heart Failure: No Congenital Heart Disease: No Valvular Heart Disease: No Rheumatic Fever: No Cardiomyopathy: No Edema: No Pericarditis: No Cellulitis: No Deep Vein Thrombosis: No Hypertension: Yes Hypotension: Yes Varicose Veins: Yes Respiratory Problems Chronic Obstructive Pulmonary Disease (COPD): Yes Asthma: No Bronchitis: No Emphysema: No Pneumonia: No Pulmonary Fibrosis: No Tuberculosis: No Pulmonary Embolism: No Pulmonary Edema: No Sleep Apnea: Yes Stomache/Intestinal Problems Hepatitis: No Cirrhosis: No Pancreatitis: No Celiac Disease: No Gall Bladder Disease: Yes Gastrointestinal Bleed: No Esophageal Varices: No Rodriguez's Esophagus: No Colitis: No Ulcerative Colitis: No Diverticulitis: Yes Diverticulosis: Yes Ulcer: No Colorectal Cancer: No Irritable Bowel: Yes Crohn's Disease: No Obstructive Bowel: No Hiatal Hernia: No Hemorrhoids: No Gastroesophageal Reflux Disease: Yes Obesity: Yes Genital/Urinary Problems Renal Disease: No Kidney Stones: Yes Polycystic Kidney Disease: No Neurogenic Bladder: No Dialysis: No Reproductive Problems Breast Cancer: No Endometriosis: Yes Pelvic Inflammatory Disease: No Previous Pregnancies: Yes Uterine Prolapse: No Musculoskeletal Problems Muscular Dystrophy: No Myasthenia Gravis: No Marfan's Syndrome: No Bone Cancer: No Arthritis: Yes Rheumatoid Arthritis: No Osteoporosis: No Degenerative Disk Disease: No Gout: No Scoliosis: No Carpal Tunnel Syndrome: No Fibromyalgia: Yes Fractures: No Degenerative Joint Disease: Yes Osteomyelitis: No Poliovirus: No Head,Eye,Nose,Throat Problems Cataracts: No Glaucoma: No Blind: No Retinal Detachment: No Macular Degeneration: No Chronic Ear Infections: No Deafness: No Eye Prosthesis: No Endocrine Problems Diabetes Mellitus Type 1: No Diabetes Mellitus Type 2: Yes Hypoglycemia: No Ree's Syndrome: No Bennett's Disease: No Hyperthyroidism: No Hypothyroidism: No Parathyroid Disease: No Pituitary Disease: No Systemic Lupus Erythematosus: No Syndrome of Inappropriate Antidiuretic Hormone: No Adrenal Disease: No Graves' Disease: No Blood Problems Anemia: No Leukemia: No Hemophilia: No Thalassemia: No Sickle Cell Disease: No Clotting Problems: No Psychologic Problems Schizophrenia: No Bipolar Disorder: Yes Depression: Yes Anxiety: No Behavior Problems: No Self-Mutilation: No Attention Deficit Disorder: No Attention Deficit Hyperactivity Disorder: No Depression: No Post Traumatic Stress Disorder: No Eating Disorder: No Other Problems Hospitalization: Yes Down Syndrome: No Autism: No Developmental Delay: No Shingles: No Falls: Yes Blood Transfusions: No Blood Transfusion Reaction: No Anesthesia Reactions: No Organ Transplant: No Chemotherapy: No Radiation Therapy: No Hyperbaric Therapy: No MRSA: No VRSA: No Vancomycin-Resistant Enterococci: No Human Immunodeficiency Virus (HIV): No Chicken Pox: Yes Measles: Yes Mumps: Yes Rubella ([place] Measles): No Pertussis: No Clostridium Difficile: No Cancer: No Cervical Cancer: No Lung Cancer: No Ovarian Cancer: No Surgical History Carotid Endarterectomy: No Coronary Artery Bypass Graft: No Valve Replacement: No Hysterectomy: Yes Pacemaker: No Thyroidectomy: No History of Present Illness HPI Narrative Ms. Suh is a 63-year-old female with past medical history of bipolar disorder who has been off medications for the last several decades because of loss of insurance. She has not seen a physician in many years up until her recent hospitalizations. She reports that she additionally had a history of diabetes which has been resolved with weight loss, A1c during her last hospitalization 5.5. She notes that she has a longstanding history of kidney stones with multiple kidney surgeries and nephrostomy tube placements. She notes that she currently has a stone which is stuck in her kidney wall. Over the last year, she has been hospitalized several times, notably diagnosed with Afib, bradycardia/vasovagal, CVA, HTN crisis, NSTEMI, normocytic anemia, and kidney disease. Her concerns have revolved around her headaches which she relates to HTN, chest pain which she experiences when trying to sleep (as she ruminates on the loss of her ). Recent echocardiogram revealed ejection fraction 55 to 60% with moderate mitral regurgitation. Angiography July 28, 2023 revealed Significant lesion in the LAD and dominant circumflex and a diffusely diseased nondominant RCA, Dr. Schmid recommended bypass surgery. Leyla reports feeling out of sorts as she is moving out of her house 5 years which is traumatic for her as this was the last place that she has lived with her late . Fortunately, she was able to find a new house which she is moving with her family. She endorses doing fairly well but does endorse occasional palpitations. She notes that she does have a little bit more pain recently from moving all the boxes in her house. She still has not obtained labs nor followed up with her referrals. 04/20/2024 - Leyla scheduled a telehealth visit, as she had ran out of her antihypertensive medications, she has no other complaints at the moment, she did report she has trouble finding a ride, as her son is not available right now. 05/03/2024: The patient was scheduled for telehealth visit because of diarrhea for past 6 days. She reported that she had not been able to tolerate any PO intake, and as soon as she take PO she has a bowel movement within 5-10 minutes. Her bowel movements are watery, foul smelling and not tinged with blood or mucus. She denies any sick contact, recent visit to new place, change in food habit, or any antibiotics use. She also denied any dizziness, fever, chills, nausea or vomiting. She tried immodium without any help, requested antidiarrheal medication. 07/13/2024: Patient comes for monthly visit. Had episode of blacking out on Thursday, was seen in ER found to have elevated blood pressure and bradycardia. No further episodes since. Doing well since. Here for refill of medications. No other acute complaints. Blood pressure is good today at 126/78. Labs from ER visit show PRINCESS, will recheck BUN and Cr in 1 week and consider stopping valsartan-HCTZ at that time. Counselled if HR is low, hold metoprolol and emphasized following up with Cardiology. 08/17/2024: Telehealth visit. Patient did not get labs yet. Complains of yeast infection and rash between abdominal folds x 1 week, unrelieved with Ammens powder. Admits malodorous odor, with some drainage. No open wound. Will prescribe empiric nystatin powder and follow up in 1 week. 10/10/2024 Today patient complains of swelling of her bilateral lower extremities. This started about 2 weeks ago and progressively worsened. Upon exam her right lower extremity appears more swollen than her left. Will order bilateral lower extremity venous Doppler ultrasound to rule out DVT. Also patient needs her clonidine prescription is refilled. Told her we will hold her valsartan/HCTZ for now as she still has not repeated her renal panel. Will reorder renal panel today 10/14/2024: Telehealth visit to review labs. Reports was unable to schedule US of BLE due to holidays. Renal panel reviewed, Sodium 137, potassium 4.6, chloride 108, bicarb 22.9, BUN 27, creatinine 1.8 and GFR 31. Patient's renal function Cr 1.2, BUN 16, GFR 51 in July 2023. Will refer patient to Nephrology for further workup. Patient reports taking Clonidine, Metoprolol tartrate, Hydralazine, Isosorbide for BP management, will continue to hold losartan-HCTZ. Patient to follow up in 2 weeks to check blood pressure. 11/09/2024: Phone visit. Patient feeling congested and with dry cough for 1 week with pleuritic rib pain and tiredness. Denies sick contact. No sputum production. Did not check for at home fever with thermometer. Says she gets this dry cough every year, worst with winter months. Suggested using cough medicine and humidified air, if become hypoxic or unable to breathe to go to ER. Labs reviewed. Creatinine improved. Stopped losartan-HCTZ. Patient doing well on amlodipine at home. Med recc done and refills ordered. Recommended patient to come into the clinic next time to evaluate her pain medication regimen. 12/07/2024: Phone visit. Patient feeling well, recovered from bronchitis. Health-berg doing well. Some at home stressors. Requesting refill on norco and metoprolol. No longer taking buproprion. 12/21/2024: Phone visit. Patient requesting refill for amlodipine and for antibiotics for a tooth infection. Patient ate a piece of chicken and broke her tooth, causing significant pain. She was told by her dentist that she needs some antibiotics before they can operate the tooth. Will send script for Augmentin for 1 week. Otherwise patient doing well, reports her BP has been well controlled. 12/28/2024: Phone visit. 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 Denies incontinence, shooting pain, numbness or tingling. Endorses difficulty walking and pain upon lying down. Tried BioFlex, heat. Pain not improved with patient's chronic pain meds. Will try 1 week of baclofen and a Medrol Montez for inflammation. Reviewed red flag signs for back pain and recommend patient to go to ER if develops shooting pain or incontinence/urinary retention due to back pain. Tooth pain resolved. 04/07/2025: In person clinic visit seen for follow-up. Patient requesting refill on all medication. Patient noted to have elevated blood pressure reading of 166/73 and reports of chronic back pain. Patient was prescribed muscle relaxant in the past which caused her dizziness and fall, patient is maxed out on gabapentin we will add duloxetine 30 mg daily and assess response. We will add amlodipine 10 mg daily to improve blood pressure control, does have underlying bilateral lower extremity edema we will monitor response. Patient was recommended bypass surgery by medical territory manager in 2022 as patient has significant lesion in LAD and dominant circumflex with nondominant RCA diffusely diseased. Patient has strongly disagreed with above recommendation, discussed with patient extensively and patient agreed that she would like to follow-up with a different medical territory manager for improved management. Will refer to medical territory manager Dr. Lazo. 05/08/2025: The patient presented for F/U regarding HTN and back pain. She reported her BP not being well controlled and continuing to have back pain. She requested refil in her norco. She was also increased in the dose of her clonidine to 0.2mg TID and started on tizanidine 2 mg TID as needed for muscle spasm. She was recommended to call back to Dr. Lazo office to reschedule an appointment. Denied chest pain, SOB, leg swelling, abdominal pain, fever or chills. Review of Systems Review of Systems Systems Reviewed: All systems reviewed, normal except as documented Objective/Exam Narrative Physical exam: Physical Exam General: Awake and in no acute distress. Conversational and non-toxic appearing. HEENT: Normocephalic, atraumatic, mucous membranes moist. Heart: Regular rate and rhythm, no murmurs. Lungs: Clear to auscultation with no wheezing or crackles. Abdomen: Soft, nondistended, nontender, positive bowel sounds. ?No guarding or rebound tenderness. Paraspinal Tenderness Lumbar region. Neurologic: Alert and oriented x3, no gross neurological deficit, and patient able to move all 4 extremities. Extremities: 1+ BLE edema. Skin: No rash or ecchymoses. Assessment & Plan Diagnosis / Problem List (1) Back pain due to injury: Status: Acute Assessment & Plan: Patient has chronic back pain on gabapentin 600 mg 3 times daily, uses [place] 7.5?3 25 3 times daily as needed for pain management as well. Patient also noted to have paraspinal tenderness on physical exam Plan: - Patient on high-dose opiate, counseled on judicious use - Continue on duloxetine 30 mg p.o. daily - Started on Tizanidine 2mg TID as needed for muscle spasm. - Follow-up as needed to uptitrate duloxetine (2) Hypertension: Status: Acute Qualifiers: Hypertension type: primary hypertension Qualified Code(s): I10 - Essential (primary) hypertension Assessment & Plan: Patient has poorly controlled hypertension, blood pressure reading 167/78 Currently being managed on clonidine 0.1 mg 3 times daily, hydralazine 100 mg 3 times daily, metoprolol tartrate 25 p.o. twice daily and isosorbide 60 mg p.o. daily Does have some 1+ bilateral lower extremity edema Plan: - Continue with amlodipine 10 mg p.o. daily - Recommended to call back for rescheduling to cardiology for blood pressure optimization and cardiac restratification - Continue atorvastatin 80 mg at bedtime - Increased the dose of clonidine to 0.2 mg TID - Chronic active smoker, advised to stop smoking, tobacco cessation education provided (3) Coronary artery disease: Status: Chronic Qualifiers: Associated angina: without angina Coronary Disease-Associated Artery/Lesion type: [place] artery [place] vs. transplanted heart: [place] heart Qualified Code(s): I25.10 - Atherosclerotic heart disease of [place] coronary artery without angina pectoris Assessment & Plan: Patient denies any active chest pain. On chart review patient was recommended bypass surgery by medical territory manager in 2022 as patient has significant lesion in LAD and dominant circumflex with nondominant RCA diffusely diseased. Patient has strongly disagreed with above recommendation, discussed with patient extensively and patient agreed that she would like to follow-up with a different medical territory manager for improved management. Plan: -Continue with clopidogrel and atorvastatin -Referred to medical territory manager Dr. Lazo. Checked with medical territory manager office patient can be seen with current insurance. Plan The case was discussed with my attending MD Dao Luong MD, PGY3 Advanced Care Planning Advance care planning discussed with:: patient Office Procedures [facility] Level of Care Nursing/Assessment Patient Status: Established Patient Nursing Assessment/Reassessment: Medication Reconciliation, Update PMH in EMR and Vital Signs Coordination of Care: Complex Care and Chronic Disease 1-5, Consent,records obtained, informed consent, Education Simp Pt/Fam and Staff clarify orders Established Patient Charge Established Patient Point Assignment: 85 Established Patient Point Charge: EP Level 3 (80-115)
[2025-05-08 15:46] VITALS: BP 160/70; PULSE 90; RESP 18; TEMP 36.6; O2SAT 96; BMI 27.3
== END 2025-05-08 16:35 | disposition home or self-care (01) ==
LOC: HODAHC 15:32
PROVIDERS: Supervising Provider Internal Medicine; Visit Provider Student in an Organized Health Care Education/Training Program
DX: I10 Essential (primary) hypertension (principal); M54.9 Dorsalgia, unspecified; M62.838 Other muscle spasm; I25.10 Atherosclerotic heart disease of native coronary artery without angina pectoris; Z79.02 Long term (current) use of antithrombotics/antiplatelets; Z76.0 Encounter for issue of repeat prescription
CPT/HCPCS: 99213; G0463

== ENCOUNTER 2025-06-05 15:36 | Outpatient (AMB) | payer OTHER, SELFPAY ==
--- NOTE | 2025-06-05 16:08 | PD.RESCLINIC ---
Vital Signs 06/05/25 16:09 Height 1.68 m Height Method Stated Weight 78.982 kg Weight Measurement Method Standing Scale BMI 28.0 BP 166/68 H Blood Pressure Source Automatic Cuff Blood Pressure Location Right Upper Arm Position Sitting Respiration 19 Pulse 66 Pulse Source Monitor Temp 98.5 F Temp Source Temporal Artery Scan Pulse Oximetry (%) 96 Oxygen Delivery Method Room Air Allergies/Meds Allergies & Medications Allergies nifedipine Allergy (Verified 05/08/25 15:49) itching MA Intake Visit Data Collection New Patient or Established: Established Patient (seen at [facility] within 3 years) Seen by Clinical Staff ONLY (RN/MA): No Reason for Visit:: follow up Pain Present Currently: No Investigator Required: No PCP or OBGYN visit in last 3 months: No Date of Last PCP or OBGYN visit: 05/08/25 Do You Feel Safe at Home: Yes Authorities Contacted: N/A Smoking Status Smoking Status: Current every day smoker Cessation Counseling Provided: KAREEN was advised that quitting smoking is the single most important factor to protect the health of themselves and their family. Discussed the benefits of quitting smoking with patient. Encouraged patient to quit smoking and provided Cessation assistance materials and resources. Tobacco Use: Cigarette Years smoked: 40 Are you interested in quitting?: No Immunization / Flu Flu Vaccine in the Last 12 Months: No Flu Vaccine Exclusion Criteria: No Exclusion Criteria Past Medical History Past Medical History NEUROLOGIC: Positive Neurological Disorders, Cerebrovascular Accident, Alzheimer's Disease, Peripheral Neuropathy, Migraine and Head Trauma; Negative Transient Ischemic Attacks (TIA), Dementia, Parkinson's Disease, Brain Tumor, Meningitis, Seizures, Epilepsy, Multiple Sclerosis, Cerebral Palsy, Amyotrophic Lateral Sclerosis (ALS/Ada Gehrig's), Guillain-Onaka Syndrome, Spina Bifida, Paralysis, Goins's Palsy, Subdural Hematoma, Spinal Cord Injury or Traumatic Brain Injury CARDIAC: Positive Hypercholesterolemia, Hypertension, Hypotension and Varicose Veins; Negative Cardiac Disorders, Myocardial Infarction, Cardiac Arrhythmia, Atrial Fibrillation, Angina, Heart Murmur, Coronary Artery Disease, Atherosclerotic Heart Disease, Peripheral Vascular Disease, Aneurysm, Congestive Heart Failure, Congenital Heart Disease, Valvular Heart Disease, Rheumatic Fever, Cardiomyopathy, Edema, Pericarditis, Cellulitis or Deep Vein Thrombosis RESPIRATORY: Positive Chronic Obstructive Pulmonary Disease (COPD) and Sleep Apnea; Negative Asthma, Bronchitis, Emphysema, Pneumonia, Pulmonary Fibrosis, Cystic Fibrosis, Tuberculosis, Pulmonary Embolism or Pulmonary Edema GASTROINTESTINAL: Positive Gastrointestinal Disorders, Gall Bladder Disease, Diverticulitis, Diverticulosis, Irritable Bowel, Gastroesophageal Reflux Disease and Obesity; Negative Hepatitis, Cirrhosis, Pancreatitis, Celiac Disease, Gastrointestinal Bleed, Esophageal Varices, Rodriguez's Esophagus, Colitis, Ulcerative Colitis, Ulcer, Colorectal Cancer, Crohn's Disease, Obstructive Bowel, Hiatal Hernia or Hemorrhoids GENITOURINARY: Positive Genitourinary Disorders and Kidney Stones; Negative Renal Disease, Polycystic Kidney Disease, Neurogenic Bladder or Dialysis REPRODUCTIVE: Positive Endometriosis and Previous Pregnancies; Negative Breast Cancer, Pelvic Inflammatory Disease or Uterine Prolapse MUSCULOSKELETAL: Positive Arthritis, Fibromyalgia and Degenerative Joint Disease; Negative Muscular Dystrophy, Myasthenia Gravis, Marfan's Syndrome, Bone Cancer, Rheumatoid Arthritis, Osteoporosis, Degenerative Disk Disease, Gout, Scoliosis, Carpal Tunnel Syndrome, Fractures, Osteomyelitis or Poliovirus ENT: Positive Head Trauma; Negative Cataracts, Glaucoma, Blind, Retinal Detachment, Macular Degeneration, Ear Infection, Deafness or Eye Prosthesis ENDOCRINE: Positive Diabetes Mellitus Type 2; Negative Endocrine Disorders, Diabetes Mellitus Type 1, Hypoglycemia, [place]'s Syndrome, Conway's Disease, Hyperthyroidism, Hypothyroidism, Parathyroid Disease, Pituitary Disease, Systemic Lupus Erythematosus, Syndrome of Inappropriate Antidiuretic Hormone (SIADH), Adrenal Disease or Graves' Disease HEMATOLOGIC: Negative Blood Disorders, Anemia, Leukemia, Hemophilia, Thalassemia, Sickle Cell Disease or Clotting Problems PSYCHO/SOCIAL: Positive Psychiatric Problems, Bipolar Disorder and Depression; Negative Schizophrenia, Anxiety, Behavior Problems, Self-Mutilation, Attention Deficit Disorder, Attention Deficit Hyperactivity Disorder, Depression, Post Traumatic Stress Disorder or Eating Disorder OTHER HISTORY: Positive Hospitalization, Falls, Chicken Pox, Measles and Mumps; Negative Down Syndrome, Autism, Developmental Delay, Shingles, Blood Transfusions, Blood Transfusion Reaction, Anesthesia Reactions, Organ Transplant, Chemotherapy, Radiation Therapy, Hyperbaric Therapy, MRSA, VRSA, Vancomycin-Resistant Enterococci, Human Immunodeficiency Virus (HIV), Rubella ([place] Measles), Pertussis, Clostridium Difficile, Cancer, Breast Cancer, Cervical Cancer, Colorectal Cancer, Lung Cancer or Ovarian Cancer Family History FAMILY HISTORY: Positive Family Psychiatric Problems, Family Cardiac Disorders and Family Gastrointestinal Problems; Negative Family Respiratory Disorders, Family Cancer, Family Surgery or Family Anesthesia Reaction Surgical History SURGICAL: Positive Oral Surgery, Tonsillectomy, Adenoidectomy, Abdominal Surgery, Joint Replacement, Arthroscopy and Hysterectomy; Negative Cardiac Surgery, Open Heart Surgery, Coronary Artery Bypass Graft, Valve Replacement, Vascular Surgery, Coronary Stent, Cardiac Catheterization, Pacemaker, Angiogram, Auto Implanted Cardiovert Defib, Carotid Endarterectomy, Endocrine Surgery, Thyroidectomy, Ear Surgery, Tympanostomy Tube, Eye Surgery, Nose Surgery, Cochlear Implant, Corneal Transplant, Throat Surgery, Tracheostomy, Gastric Bypass Surgery, Gastrostomy, Bowel Surgery, Nephrectomy, Amputation, Open Reduction Internal Fixation, Neurologic Surgery, Brain Shunt, Mastectomy, Lumpectomy, Tubal Ligation, Section or Organ Transplant Social History SMOKING STATUS: Smoking status: Current every day smoker PACK YEARS: Pack-Years: 17 SECOND HAND EXPOSURE: second hand exposure: No ALCOHOL: Alcohol Intake: Never HOUSING: Housing: House LIVES WITH: Lives With: Family Patient Portal Questionaires PHQ-9 PHQ-2 Over the last 2 weeks, how often have you been bothered by any of the following problems? 1. Little interest or pleasure in doing things: not at all PHQ-9 8. Moving or speaking so slowly that other people could have noticed? - Or the opposite - being so fidgety or restless that you have been moving around a lot more than usual: not at all Source: Developed by Drs. Gt Miller, Teresa Long, Andrew Lund and colleagues, with an educational oral from [employer]. Social History Living Situation History Housing: House Housing Other:: Patient resides in a home with her daughter. Tobacco History Smoking Status: Current every day smoker Packs per Day: 1 Pack-Years: 17 Number of Smoking Years (pipe): 10 Second Hand Smoke Exposure: No Alcohol History Alcohol Intake: Never Domestic Abuse History Do You Feel Safe at Home: Yes Review of Systems Report any current symptoms Only answer those that you have currently: Past Medical History Past Medical History Have you ever been diagnosed with any of the following: Neurological Problems Cerebrovascular Accident (CVA): Yes Transient Ischemic Attacks (TIA): No Dementia: No Alzheimer's Disease: Yes Parkinson's Disease: No Brain Tumor: No Meningitis: No Seizures: No Epilepsy: No Multiple Sclerosis: No Cerebral Palsy: No Amyotrophic Lateral Sclerosis (ALS/Ada Gehrig's): No Guillain-Onaka Syndrome: No Spina Bifida: No Paralysis: No Peripheral Neuropathy: Yes Goins's Palsy: No Subdural Hematoma: No Migraine: Yes Head Trauma: Yes Spinal Cord Injury: No Traumatic Brain Injury: No Cardiology Problems Myocardial Infarction: No Cardiac Arrhythmia: No Atrial Fibrillation: No Angina: No Heart Murmur: No Coronary Artery Disease: No Atherosclerotic Heart Disease: No Peripheral Vascular Disease: No Hypercholesterolemia: Yes Aneurysm: No Congestive Heart Failure: No Congenital Heart Disease: No Valvular Heart Disease: No Rheumatic Fever: No Cardiomyopathy: No Edema: No Pericarditis: No Cellulitis: No Deep Vein Thrombosis: No Hypertension: Yes Hypotension: Yes Varicose Veins: Yes Respiratory Problems Chronic Obstructive Pulmonary Disease (COPD): Yes Asthma: No Bronchitis: No Emphysema: No Pneumonia: No Pulmonary Fibrosis: No Tuberculosis: No Pulmonary Embolism: No Pulmonary Edema: No Sleep Apnea: Yes Stomache/Intestinal Problems Hepatitis: No Cirrhosis: No Pancreatitis: No Celiac Disease: No Gall Bladder Disease: Yes Gastrointestinal Bleed: No Esophageal Varices: No Rodriguez's Esophagus: No Colitis: No Ulcerative Colitis: No Diverticulitis: Yes Diverticulosis: Yes Ulcer: No Colorectal Cancer: No Irritable Bowel: Yes Crohn's Disease: No Obstructive Bowel: No Hiatal Hernia: No Hemorrhoids: No Gastroesophageal Reflux Disease: Yes Obesity: Yes Genital/Urinary Problems Renal Disease: No Kidney Stones: Yes Polycystic Kidney Disease: No Neurogenic Bladder: No Dialysis: No Reproductive Problems Breast Cancer: No Endometriosis: Yes Pelvic Inflammatory Disease: No Previous Pregnancies: Yes Uterine Prolapse: No Musculoskeletal Problems Muscular Dystrophy: No Myasthenia Gravis: No Marfan's Syndrome: No Bone Cancer: No Arthritis: Yes Rheumatoid Arthritis: No Osteoporosis: No Degenerative Disk Disease: No Gout: No Scoliosis: No Carpal Tunnel Syndrome: No Fibromyalgia: Yes Fractures: No Degenerative Joint Disease: Yes Osteomyelitis: No Poliovirus: No Head,Eye,Nose,Throat Problems Cataracts: No Glaucoma: No Blind: No Retinal Detachment: No Macular Degeneration: No Chronic Ear Infections: No Deafness: No Eye Prosthesis: No Endocrine Problems Diabetes Mellitus Type 1: No Diabetes Mellitus Type 2: Yes Hypoglycemia: No Ree's Syndrome: No Conway's Disease: No Hyperthyroidism: No Hypothyroidism: No Parathyroid Disease: No Pituitary Disease: No Systemic Lupus Erythematosus: No Syndrome of Inappropriate Antidiuretic Hormone: No Adrenal Disease: No Graves' Disease: No Blood Problems Anemia: No Leukemia: No Hemophilia: No Thalassemia: No Sickle Cell Disease: No Clotting Problems: No Psychologic Problems Schizophrenia: No Bipolar Disorder: Yes Depression: Yes Anxiety: No Behavior Problems: No Self-Mutilation: No Attention Deficit Disorder: No Attention Deficit Hyperactivity Disorder: No Depression: No Post Traumatic Stress Disorder: No Eating Disorder: No Other Problems Hospitalization: Yes Down Syndrome: No Autism: No Developmental Delay: No Shingles: No Falls: Yes Blood Transfusions: No Blood Transfusion Reaction: No Anesthesia Reactions: No Organ Transplant: No Chemotherapy: No Radiation Therapy: No Hyperbaric Therapy: No MRSA: No VRSA: No Vancomycin-Resistant Enterococci: No Human Immunodeficiency Virus (HIV): No Chicken Pox: Yes Measles: Yes Mumps: Yes Rubella ([place] Measles): No Pertussis: No Clostridium Difficile: No Cancer: No Cervical Cancer: No Lung Cancer: No Ovarian Cancer: No Surgical History Carotid Endarterectomy: No Coronary Artery Bypass Graft: No Valve Replacement: No Hysterectomy: Yes Pacemaker: No Thyroidectomy: No History of Present Illness HPI Narrative Patient is a 65 year old female with PMH of bipolar disorder (not on medications), type II DM non-insulin dependent, nephrolithiasis s/p renal surgery and nephrostomy tube placement, paroxysmal afib, bradycardia/vasovagal, CVA, HTN, NSTEMI, normocytic anemia, and CKD presenting today for follow up for hypertension and chronic back pain secondary to DDD. Complaining of left sided headache, sometimes radiating down neck, denies worsening vision or new onset weakness and numbness. 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 Is on clopidogrel, low concern for recurrent stroke at this time. Recommended OTC Tylenol for now as ibuprofen gives her GI discomfort. Reports bilateral lower extremity edema for the past 1-2 weeks. Wears compression stockings intermittently, raises legs in bed. No history of CHF, last echo 07/26/23 showed EF 55-60% with moderate MR. Denies shortness of breath or orthopnea. Previously on valsartan-HCTZ 04/2024 but discontinued due to PRINCESS and normalized BP at the time, not currently on any diuretic. Venous doppler study 06/2023 negative for DVT. BP at office today elevated at 166/68, does not measure BP at home. Refilled clonidine per patient request. Has chronic back pain, has advanced degenerative disc disease L4-[address] AP 06/2023. Tizanidine 2 mg TID prn prescribed at last visit on 05/08/25 for muscle spasms, possibly related to back pain. Reports does not help at all, previously prescribed flexeril 10 mg TID as needed with relief. No longer on duloxetine. Ran out of [place], last refilled on 05/09/25. Of note, patient was recommended bypass surgery by cold storage superintendent Dr. Kathleen in 2022 due to significant lesion in LAD and dominant circumflex with nondominant RCA diffusely diseased observed on angio 07/2023. Previously, patient disagreed with above recommendation but had discussed extensively risks and benefits of procedure. Patient was referred to cold storage superintendent Dr. Lazo, has not yet made appointment with his office. Review of Systems Review of Systems Narrative Review of Systems: Constitutional: No fever, chills, fatigue, weakness, weight loss HEENT: Left sided headache, radiates to neck. 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 No eye pain, ear pain, hearing loss, dysphagia. Cardiovascular: No chest pain, palpitations, edema, pain with walking Respiratory: No cough, shortness of breath, wheezing GI: No NVD, abdominal pain, constipation, blood in stool, loss of appetite, heartburn Extremities: Bilateral lower extremity pitting edema. MSK: Chronic lower back pain. Denies joint pain, joint swelling Neuro: No dizziness, numbness, weakness, headaches, seizures, tremors Psych: No anxiety, depression Objective/Exam Narrative Physical exam: General: Pleasant woman. Awake and in no acute distress. Conversational and non-toxic appearing. HEENT: Normocephalic, atraumatic, mucous membranes moist. Heart: Regular rate and rhythm, normal S1 and S2, no murmurs appreciated. Lungs: Clear to auscultation with no wheezing or crackles. Abdomen: Soft, nondistended, nontender, positive bowel sounds. No guarding or rebound tenderness. Neurologic: Alert and oriented x3, no gross neurological deficit, and patient able to move all 4 extremities. Extremities: 2+ pitting edema of bilateral lower extremities. No erythema or venous changes observed. Skin: No rash or ecchymoses. Assessment & Plan Diagnosis / Problem List (1) Hypertension: Status: Acute Qualifiers: Hypertension type: primary hypertension Qualified Code(s): I10 - Essential (primary) hypertension Assessment & Plan: BP at office today elevated at 166/68, does not measure BP at home. Previously on valsartan-HCTZ 04/2024 but discontinued due to PRINCESS on CKD and normalized BP at the time, not currently on any diuretic. Possible secondary to CKD. Creatinine previously 1.5-1.8 in 2022, last 1.8 in 09/2024. Last eGFR 54 in 2019. Was referred to nephrology in 09/2024, has not followed up per patient. Possibly contributing to headache as this appears to be a recurrent problem. Currently taking amlodipine 10, clonidine, metoprolol tartrate, hydralazine, isosorbide. Had BP cuff but lost during move, has not been recording BP for a while now. Unclear if secondary to white coat syndrome. Plan: - Start on Lasix 20 mg daily - Ordered new BP cuff - Recommended measuring and logging BP every morning - Continue clonidine, metoprolol tartrate, hydralazine, and isosorbide - Consider rechecking renal panel - Follow up nephrology referral (2) Hypertensive urgency: Status: Acute Assessment & Plan: Previously admitted for hypertensive urgency. Medications as above. Plan: - As above. (3) Back pain: Status: Acute Qualifiers: Back pain laterality: midline Back pain location: low back pain Chronicity: chronic Sciatica presence: unspecified whether sciatica present Qualified Code(s): M54.50 - Low back pain, unspecified; G89.29 - Other chronic pain Assessment & Plan: Chronic. Secondary to advanced degenerative disc disease of L4-[address] A/P 06/2023. Tizanidine 2 mg TID prescribed at last visit did not help at all. Per patient, she was previously prescribed flexeril 10 mg TID as needed with relief. No longer on duloxetine per last visit as well. Ran out of [employer], last refilled on 05/09/25. Plan: - Restart flexeril 10 mg TID as needed for muscle spasms - Continue [place] 5 Additional Assessment #Bilateral pitting edema - currently not on diuretic. On amlodipine 10 and isosorbide. No hx CHF, denies shortness of breath and orthopnea at this time. Started on Lasix as above. #Headache, left sided - possibly secondary to hypertension. Hx of hypertensive urgency. Hx of left brainstem pontine level CVA, still on clopidogrel. No new symptoms suggestive of recurrent stroke. Recommended OTC Tylenol, control BP. #History of type II DM, non insulin dependent - last A1c 5.5 07/2023, currently not on any medications, consider rechecking A1c at next visit Advanced Care Planning Advance care planning discussed with:: patient Office Procedures [facility] Level of Care Nursing/Assessment Patient Status: Established Patient Nursing Assessment/Reassessment: Medication Reconciliation, Update PMH in EMR and Vital Signs Coordination of Care: Complex Care and Chronic Disease 1-5, Consent,records obtained, informed consent, Lab and Imaging orders and Results/Orders obtained Established Patient Charge Established Patient Point Assignment: 80 Established Patient Point Charge: Level 3 (80-115)
[2025-06-05 16:09] VITALS: BP 166/68; PULSE 66; RESP 19; TEMP 36.9; O2SAT 96; BMI 28.0
== END 2025-06-05 16:40 | disposition home or self-care (01) ==
LOC: HODAHC 15:36
PROVIDERS: Supervising Provider Internal Medicine
DX: I10 Essential (primary) hypertension (principal); M51.360 Other intervertebral disc degeneration, lumbar region with discogenic back pain only; Z76.0 Encounter for issue of repeat prescription; E11.9 Type 2 diabetes mellitus without complications; F31.9 Bipolar disorder, unspecified; Z86.73 Personal history of transient ischemic attack (TIA), and cerebral infarction without residual deficits
CPT/HCPCS: 99213; G0463

== ENCOUNTER 2025-08-09 14:44 | Outpatient (AMB) | payer OTHER, SELFPAY ==
--- NOTE | 2025-08-09 14:45 | ACNOTE_ITS ---
Allergies/Meds Allergies & Medications Allergies nifedipine Allergy (Verified 08/09/25 14:45) itching Medication Reconciliation blood pressure test kit-large ([facility] Blood Pressure Monitor kit) #1 ea 06/05/25 [Rx Confirmed 08/09/25] clonidine HCl 0.2 mg tablet 0.2 mg PO TID 30 days #90 tabs 06/05/25 [Rx Confirmed 08/09/25] isosorbide mononitrate 60 mg tablet,extended release 24 hr 60 mg PO QDAY chest pain #30 tabs 07/04/25 [Rx Confirmed 08/09/25] atorvastatin 80 mg tablet 80 mg PO QPM 30 days #30 tabs 07/27/25 [Rx Confirmed 08/09/25] clopidogrel 75 mg tablet (Plavix) 75 mg PO QDAY 30 days #30 tabs 07/27/25 [Rx Confirmed 08/09/25] gabapentin 600 mg tablet 600 mg PO TID #90 tabs 07/27/25 [Rx Confirmed 08/09/25] hydralazine 100 mg tablet 100 mg PO TID 30 days #90 tabs 07/27/25 [Rx Confirmed 08/09/25] amlodipine 10 mg tablet 10 mg PO QDAY Hypertension #30 tabs 08/09/25 [Rx] cyclobenzaprine 10 mg tablet 10 mg PO TID PRN muscle spasm 30 days #60 tabs 08/09/25 [Rx] duloxetine 30 mg capsule,delayed release 30 mg PO QDAY Chronic Neuropathic Pain #30 caps 08/09/25 [Rx] furosemide 20 mg tablet (Lasix) 20 mg PO QDAY 1 month #30 tabs 08/09/25 [Rx] hydrocodone 7.5 mg-acetaminophen 325 mg tablet 1 tab PO TID PRN pain #90 tabs 08/09/25 [Rx] MA Intake Visit Data Collection New Patient or Established: Established Patient (seen at [facility] within 3 years) Seen by Clinical Staff ONLY (RN/MA): No Reason for Visit:: Televisit for medication refills PCP or OBGYN visit in last 3 months: Yes Smoking Status Smoking Status: Current every day smoker Cessation Counseling Provided: KAREEN was advised that quitting smoking is the single most important factor to protect the health of themselves and their family. Discussed the benefits of quitting smoking with patient. Encouraged patient to quit smoking and provided Cessation assistance materials and resources. Tobacco Use: Cigarette Years smoked: 40 Are you interested in quitting?: No For Televisit only Telemed Video/Phone Visit: Yes Verbal consent obtained for Telemed visit?: Yes Telemed Video/Phone visit w/Clinical Staff: 21-30 min Immunization / Flu Flu Vaccine in the Last 12 Months: No Flu Vaccine Exclusion Criteria: No Exclusion Criteria Past Medical History Past Medical History NEUROLOGIC: Positive Neurological Disorders, Cerebrovascular Accident, Alzheimer's Disease, Peripheral Neuropathy, Migraine and Head Trauma; Negative Transient Ischemic Attacks (TIA), Dementia, Parkinson's Disease, Brain Tumor, Meningitis, Seizures, Epilepsy, Multiple Sclerosis, Cerebral Palsy, Amyotrophic Lateral Sclerosis (ALS/Ada Gehrig's), Guillain-[place] Syndrome, Spina Bifida, Paralysis, Goins's Palsy, Subdural Hematoma, Spinal Cord Injury or Traumatic Brain Injury CARDIAC: Positive Hypercholesterolemia, Hypertension, Hypotension and Varicose Veins; Negative Cardiac Disorders, Myocardial Infarction, Cardiac Arrhythmia, Atrial Fibrillation, Angina, Heart Murmur, Coronary Artery Disease, Atherosclerotic Heart Disease, Peripheral Vascular Disease, Aneurysm, Congestive Heart Failure, Congenital Heart Disease, Valvular Heart Disease, Rheumatic Fever, Cardiomyopathy, Edema, Pericarditis, Cellulitis or Deep Vein Thrombosis RESPIRATORY: Positive Chronic Obstructive Pulmonary Disease (COPD) and Sleep Apnea; Negative Asthma, Bronchitis, Emphysema, Pneumonia, Pulmonary Fibrosis, Cystic Fibrosis, Tuberculosis, Pulmonary Embolism or Pulmonary Edema GASTROINTESTINAL: Positive Gastrointestinal Disorders, Gall Bladder Disease, Diverticulitis, Diverticulosis, Irritable Bowel, Gastroesophageal Reflux Disease and Obesity; Negative Hepatitis, Cirrhosis, Pancreatitis, Celiac Disease, Gastrointestinal Bleed, Esophageal Varices, Rodriguez's Esophagus, Colitis, Ulcerative Colitis, Ulcer, Colorectal Cancer, Crohn's Disease, Obstructive Bowel, Hiatal Hernia or Hemorrhoids GENITOURINARY: Positive Genitourinary Disorders and Kidney Stones; Negative Renal Disease, Polycystic Kidney Disease, Neurogenic Bladder or D ialysis REPRODUCTIVE: Positive Endometriosis and Previous Pregnancies; Negative Breast Cancer, Pelvic Inflammatory Disease or Uterine Prolapse MUSCULOSKELETAL: Positive Arthritis, Fibromyalgia and Degenerative Joint Disease; Negative Muscular Dystrophy, Myasthenia Gravis, Marfan's Syndrome, Bone Cancer, Rheumatoid Arthritis, Osteoporosis, Degenerative Disk Disease, Gout, Scoliosis, Carpal Tunnel Syndrome, Fractures, Osteomyelitis or Poliovirus ENT: Positive Head Trauma; Negative Cataracts, Glaucoma, Blind, Retinal Detachment, Macular Degeneration, Ear Infection, Deafness or Eye Prosthesis ENDOCRINE: Positive Diabetes Mellitus Type 2; Negative Endocrine Disorders, Diabetes Mellitus Type 1, Hypoglycemia, Mentor's Syndrome, Bennett's Disease, Hyperthyroidism, Hypothyroidism, Parathyroid Disease, Pituitary Disease, Systemic Lupus Erythematosus, Syndrome of Inappropriate Antidiuretic Hormone (SIADH), Adrenal Disease or Graves' Disease HEMATOLOGIC: Negative Blood Disorders, Anemia, Leukemia, Hemophilia, Thalassemia, Sickle Cell Disease or Clotting Problems PSYCHO/SOCIAL: Positive Psychiatric Problems, Bipolar Disorder and Depression; Negative Schizophrenia, Anxiety, Behavior Problems, Self-Mutilation, Attention Deficit Disorder, Attention Deficit Hyperactivity Disorder, Depression, Post Traumatic Stress Disorder or Eating Disorder OTHER HISTORY: Positive Hospitalization, Falls, Chicken Pox, Measles and Mumps; Negative Down Syndrome, Autism, Developmental Delay, Shingles, Blood Transfusions, Blood Transfusion Reaction, Anesthesia Reactions, Organ Transplant, Chemotherapy, Radiation Therapy, Hyperbaric Therapy, MRSA, VRSA, Vancomycin-Resistant Enterococci, Human Immunodeficiency Virus (HIV), Rubella (Yi Measles), Pertussis, Clostridium Difficile, Cancer, Breast Cancer, Cervical Cancer, Colorectal Cancer, Lung Cancer or Ovarian Cancer Family History FAMILY HISTORY: Positive Family Psychiatric Problems, Family Cardiac Disorders a nd Family Gastrointestinal Problems; Negative Family Respiratory Disorders, Family Cancer, Family Surgery or Family Anesthesia Reaction Surgical History SURGICAL: Positive Oral Surgery, Tonsillectomy, Adenoidectomy, Abdominal Surgery, Joint Replacement, Arthroscopy and Hysterectomy; Negative Cardiac Surgery, Open Heart Surgery, Coronary Artery Bypass Graft, Valve Replacement, Vascular Surgery, Coronary Stent, Cardiac Catheterization, Pacemaker, Angiogram, Auto Implanted Cardiovert Defib, Carotid Endarterectomy, Endocrine Surgery, Thyroidectomy, Ear Surgery, Tympanostomy Tube, Eye Surgery, Nose Surgery, Cochlear Implant, Corneal Transplant, Throat Surgery, Tracheostomy, Gastric Bypass Surgery, Gastrostomy, Bowel Surgery, Nephrectomy, Amputation, Open Reduction Internal Fixation, Neurologic Surgery, Brain Shunt, Mastectomy, Lumpectomy, Tubal Ligation, Section or Organ Transplant Social History SMOKING STATUS: Smoking status: Current every day smoker PACK YEARS: Pack-Years: 17 SECOND HAND EXPOSURE: second hand exposure: No ALCOHOL: Alcohol Intake: Never HOUSING: Housing: House LIVES WITH: Lives With: Family Patient Portal Questionaires PHQ-9 PHQ-2 Over the last 2 weeks, how often have you been bothered by any of the following problems? 1. Little interest or pleasure in doing things: not at all PHQ-9 8. Moving or speaking so slowly that other people could have noticed? - Or the opposite - being so fidgety or restless that you have been moving around a lot more than usual: not at all Source: Developed by Drs. Gt Miller, Teresa Long, Andrew Lund and colleagues, with an educational oral from [employer]. Social History Living Situation History Housing: House Housing Other:: Patient resides in a home with her daughter. Tobacco History Smoking Status: Current every day smoker Packs per Day: 1 Pack-Years: 17 Number of Smoking Years (pipe): 10 Second Hand Smoke Exposure: No Alcohol History Alcohol Intake: Never Review of Systems Report any current symptoms Only answer those that you have currently: Past Medical History Past Medical History Have you ever been diagnosed with any of the following: Neurological Problems Cerebrovascular Accident (CVA): Yes Transient Ischemic Attacks (TIA): No Dementia: No Alzheimer's Disease: Yes Parkinson's Disease: No Brain Tumor: No Meningitis: No Seizures: No Epilepsy: No Multiple Sclerosis: No Cerebral Palsy: No Amyotrophic Lateral Sclerosis (ALS/Ada Gehrig's): No Guillain-[place] Syndrome: No Spina Bifida: No Paralysis: No Peripheral Neuropathy: Yes Goins's Palsy: No Subdural Hematoma: No Migraine: Yes Head Trauma: Yes Spinal Cord Injury: No Traumatic Brain Injury: No Cardiology Problems Myocardial Infarction: No Cardiac Arrhythmia: No Atrial Fibrillation: No Angina: No Heart Murmur: No Coronary Artery Disease: No Atherosclerotic Heart Disease: No Peripheral Vascular Disease: No Hypercholesterolemia: Yes Aneurysm: No Congestive Heart Failure: No Congenital Heart Disease: No Valvular Heart Disease: No Rheumatic Fever: No Cardiomyopathy: No Edema: No Pericarditis: No Cellulitis: No Deep Vein Thrombosis: No Hypertension: Yes Hypotension: Yes Varicose Veins: Yes Respiratory Problems Chronic Obstructive Pulmonary Disease (COPD): Yes Asthma: No Bronchitis: No Emphysema: No Pneumonia: No Pulmonary Fibrosis: No Tuberculosis: No Pulmonary Embolism: No Pulmonary Edema: No Sleep Apnea: Yes Stomache/Intestinal Problems Hepatitis: No Cirrhosis: No Pancreatitis: No Celiac Disease: No Gall Bladder Disease: Yes Gastrointestinal Bleed: No Esophageal Varices: No Rodriguez's Esophagus: No Colitis: No Ulcerative Colitis: No Diverticulitis: Yes Diverticulosis: Yes Ulcer: No Colorectal Cancer: No Irritable Bowel: Yes Crohn's Disease: No Obstructive Bowel: No Hiatal Hernia: No Hemorrhoids: No Gastroesophageal Reflux Disease: Yes Obesity: Yes Genital/Urinary Problems Renal Disease: No Kidney Stones: Yes Polycystic Kidney Disease: No Neurogenic Bladder: No Dialysis: No Reproductive Problems Breast Cancer: No Endometriosis: Yes Pelvic Inflammatory Disease: No Previous Pregnancies: Yes Uterine Prolapse: No Musculoskeletal Problems Muscular Dystrophy: No Myasthenia Gravis: No Marfan's Syndrome: No Bone Cancer: No Arthritis: Yes Rheumatoid Arthritis: No Osteoporosis: No Degenerative Disk Disease: No Gout: No Scoliosis: No Carpal Tunnel Syndrome: No Fibromyalgia: Yes Fractures: No Degenerative Joint Disease: Yes Osteomyelitis: No Poliovirus: No Head,Eye,Nose,Throat Problems Cataracts: No Glaucoma: No Blind: No Retinal Detachment: No Macular Degeneration: No Chronic Ear Infections: No Deafness: No Eye Prosthesis: No Endocrine Problems Diabetes Mellitus Type 1: No Diabetes Mellitus Type 2: Yes Hypoglycemia: No Mentor's Syndrome: No Sheridan's Disease: No Hyperthyroidism: No Hypothyroidism: No Parathyroid Disease: No Pituitary Disease: No Systemic Lupus Erythematosus: No Syndrome of Inappropriate Antidiuretic Hormone: No Adrenal Disease: No Graves' Disease: No Blood Problems Anemia: No Leukemia: No Hemophilia: No Thalassemia: No Sickle Cell Disease: No Clotting Problems: No Psychologic Problems Schizophrenia: No Bipolar Disorder: Yes Depression: Yes Anxiety: No Behavior Problems: No Self-Mutilation: No Attention Deficit Disorder: No Attention Deficit Hyperactivity Disorder: No Depression: No Post Traumatic Stress Disorder: No Eating Disorder: No Other Problems Hospitalization: Yes Down Syndrome: No Autism: No Developmental Delay: No Shingles: No Falls: Yes Blood Transfusions: No Blood Transfusion Reaction: No Anesthesia Reactions: No Organ Transplant: No Chemotherapy: No Radiation Therapy: No Hyperbaric Therapy: No MRSA: No VRSA: No Vancomycin-Resistant Enterococci: No Human Immunodeficiency Virus (HIV): No Chicken Pox: Yes Measles: Yes Mumps: Yes Rubella (Yi Measles): No Pertussis: No Clostridium Difficile: No Cancer: No Cervical Cancer: No Lung Cancer: No Ovarian Cancer: No Surgical History Carotid Endarterectomy: No Coronary Artery Bypass Graft: No Valve Replacement: No Hysterectomy: Yes Pacemaker: No Thyroidectomy: No History of Present Illness HPI Narrative Patient is a 65-year-old female with past medical history of non-insulin dependent type 2 diabetes, hypertension, CVA, NSTEMI, paroxysmal afib, CKD, nephrolithiasis s/p renal surgery and nephrostomy tube placement, bradycardia/vasovagal syncope, normocytic anemia, and bipolar disorder presents via telephone visit on 08/09/2025 for medication refills. She requests refills of the following medications: -amlodipine 10 mg qday -furosemide 20 mg qday -duloxetine 30 mg qday -hydrocodone-acetaminophen 7.5-325 mg TID prn chronic back pain (1 month supply) -cyclobenzaprine 10 mg TID prn chronic back pain Patient reports that she had been having some tooth pain and went to see her dentist. She stated that her dentist told her to request antibiotics from her PCP. Patient was told she should make an appointment for an in person visit first, advised to make appointment for Saturday 08/11. Patient reports she has a follow up appointment with her Faculty Physician, Dr. Lazo, upcoming in the next couple weeks for stress testing. Patient reports that her metoprolol had recently been switched to carvedilol 12.5 mg BID. Objective/Exam Narrative Physical exam: General: Affect normal, pleasant in conversation Assessment & Plan Diagnosis / Problem List (1) Hypertension: Status: Chronic Qualifiers: Hypertension type: primary hypertension Qualified Code(s): I10 - Essential (primary) hypertension Assessment & Plan: BP at office today elevated at 166/68, does not measure BP at home. Previously on valsartan-HCTZ 04/2024 but discontinued due to PRINCESS on CKD and normalized BP at the time, not currently on any diuretic. Possible secondary to CKD. Creatinine previously 1.5-1.8 in 2022, last 1.8 in 09/2024. Last eGFR 54 in 2019. Was referred to nephrology in 09/2024, has not followed up per patient. Possibly contributing to headache as this appears to be a recurrent problem. Currently taking amlodipine 10, clonidine, metoprolol tartrate, hydralazine, isosorbide. Had BP cuff but lost during move, has not been recording BP for a while now. Unclear if secondary to white coat syndrome. Plan: - Refilled Lasix 20 mg daily - Refilled amlodipine 10 mg daily - Recommended measuring and logging BP every morning - Continue clonidine, carvedilol, hydralazine, and isosorbide (2) Back pain: Status: Chronic Qualifiers: Back pain location: low back pain Chronicity: chronic Back pain laterality: midline Sciatica presence: unspecified whether sciatica present Qualified Code(s): M54.50 - Low back pain, unspecified; G89.29 - Other chronic pain Assessment & Plan: Chronic with opioid use dependence. Secondary to advanced degenerative disc disease of L4-[address] A/P 06/2023. Tizanidine 2 mg TID previously does not help at all. Plan: - Refilled flexeril 10 mg TID as needed for muscle spasms - Refilled Manson 7.5 mg TID as needed for severe back pain - Patient educated on the risks of continued chronic opioid use, patient states she has been taking them for a long time (3) Coronary artery disease: Status: Chronic Qualifiers: Coronary Disease-Associated Artery/Lesion type: [place] artery Hoh vs. transplanted heart: [place] heart Associated angina: without angina Qualified Code(s): I25.10 - Atherosclerotic heart disease of [place] coronary artery without angina pectoris Assessment & Plan: History of diffuse CAD and had been recommended bypass surgery in the past by cardiologists but had declined and opted for medical management. Plan: - Continue high intensity statin - Continue aggressive BP control - Continue clopidogrel (4) Tooth infection: Status: Acute Assessment & Plan: Patient reports that she had been having some tooth pain and went to see her dentist. She stated that her dentist told her to request antibiotics from her PCP. Plan: - Advised to make an appointment for an in person visit first for Saturday 08/11 for examination Advanced Care Planning Advance care planning discussed with:: patient Office Procedures [facility] Level of Care Nursing/Assessment Patient Status: Established Patient Nursing Assessment/Reassessment: Medication Reconciliation and Update PMH in EMR Coordination of Care: Complex Care and Chronic Disease 1-5, Complex Care/Chronic Disease 5 or more and Staff clarify orders Established Patient Charge Established Patient Point Assignment: 85 Telehealth Telemed Phone/Video with patient at home & Dr,PA,[employer] OPERATOR: Yes
== END 2025-08-09 15:46 | disposition home or self-care (01) ==
LOC: HODAHC 14:44
PROVIDERS: Supervising Provider Internal Medicine
DX: K04.7 Periapical abscess without sinus (principal); M51.360 Other intervertebral disc degeneration, lumbar region with discogenic back pain only; E11.22 Type 2 diabetes mellitus with diabetic chronic kidney disease; I12.9 Hypertensive chronic kidney disease with stage 1 through stage 4 chronic kidney disease, or unspecified chronic kidney disease; N18.9 Chronic kidney disease, unspecified; I25.10 Atherosclerotic heart disease of native coronary artery without angina pectoris; Z79.02 Long term (current) use of antithrombotics/antiplatelets; Z86.73 Personal history of transient ischemic attack (TIA), and cerebral infarction without residual deficits
CPT/HCPCS: 99212; G0463

== ENCOUNTER 2025-10-04 14:07 | Outpatient (AMB) | payer OTHER, SELFPAY ==
[2025-10-04 14:33] VITALS: BP 153/75; PULSE 61; RESP 18; TEMP 36.4; O2SAT 97; BMI 28.0
--- NOTE | 2025-10-04 14:33 | PD.RESCLINIC ---
Vital Signs 10/04/25 14:33 Height 1.68 m Height Method Stated Weight 78.982 kg Weight Measurement Method Standing Scale BMI 28.0 BP 153/75 H Blood Pressure Source Automatic Cuff Blood Pressure Location Right Upper Arm Position Sitting Respiration 18 Pulse 61 Pulse Source Monitor Temp 97.5 F Temp Source Temporal Artery Scan Pulse Oximetry (%) 97 Oxygen Delivery Method Room Air Allergies/Meds Allergies & Medications Allergies nifedipine Allergy (Verified 10/04/25 14:34) itching Medication Reconciliation blood pressure test kit-large ([facility] Blood Pressure Monitor kit) #1 ea 06/05/25 [Rx Confirmed 10/04/25] atorvastatin 80 mg tablet 80 mg PO QPM 30 days #30 tabs 07/27/25 [Rx Confirmed 10/04/25] clopidogrel 75 mg tablet (Plavix) 75 mg PO QDAY 30 days #30 tabs 07/27/25 [Rx Confirmed 10/04/25] gabapentin 600 mg tablet 600 mg PO TID #90 tabs 07/27/25 [Rx Confirmed 10/04/25] hydralazine 100 mg tablet 100 mg PO TID 30 days #90 tabs 07/27/25 [Rx Confirmed 10/04/25] amlodipine 10 mg tablet 10 mg PO QDAY Hypertension #30 tabs 08/09/25 [Rx Confirmed 10/04/25] duloxetine 30 mg capsule,delayed release 30 mg PO QDAY Chronic Neuropathic Pain #30 caps 08/09/25 [Rx Confirmed 10/04/25] furosemide 20 mg tablet (Lasix) 20 mg PO QDAY 1 month #30 tabs 08/09/25 [Rx Confirmed 10/04/25] isosorbide mononitrate 60 mg tablet,extended release 24 hr 60 mg PO QDAY chest pain #30 tabs 08/31/25 [Rx Confirmed 10/04/25] clonidine HCl 0.2 mg tablet 0.2 mg PO TID 30 days #90 tabs 09/09/25 [Rx Confirmed 10/04/25] carvedilol 12.5 mg tablet 12.5 mg PO BID 09/12/25 [History Confirmed 10/04/25] cyclobenzaprine 10 mg tablet 10 mg PO TID PRN muscle spasm #90 tabs 10/04/25 [Rx] furosemide 20 mg tablet (Lasix) 20 mg PO QAM #60 tabs 10/04/25 [Rx] hydrocodone 7.5 mg-acetaminophen 325 mg tablet 1 tab PO TID PRN pain #90 tabs 10/04/25 [Rx] nicotine (polacrilex) 4 mg gum 4 mg buccal Q2H PRN nicotine cravings #20 ea 10/04/25 [Rx] MARANDA Intake Visit Data Collection New Patient or Established: Established Patient (seen at [facility] within 3 years) Seen by Clinical Staff ONLY (RN/MA): No Pain Present Currently: Yes Pain Location: Unable to identify Pain scale:: 9 Pain Scale Used: Mendez-Qureshi/[employer] Required: No PCP or OBGYN visit in last 3 months: Yes Hx Now: No Do You Feel Safe at Home: Yes Authorities Contacted: N/A Smoking Status Smoking Status: Light (< 1 pack/day) Cessation Counseling Provided: KAREEN was advised that quitting smoking is the single most important factor to protect the health of themselves and their family. Discussed the benefits of quitting smoking with patient. Encouraged patient to quit smoking and provided Cessation assistance materials and resources. Tobacco Use: Cigarette Years smoked: 15 Are you interested in quitting?: No Immunization / Flu Flu Vaccine in the Last 12 Months: No Flu Vaccine Exclusion Criteria: Refused by Patient Past Medical History Past Medical History NEUROLOGIC: Positive Neurological Disorders, Cerebrovascular Accident, Peripheral Neuropathy, Migraine and Head Trauma; Negative Transient Ischemic Attacks (TIA), Dementia, Alzheimer's Disease, Parkinson's Disease, Brain Tumor, Meningitis, Seizures, Epilepsy, Multiple Sclerosis, Cerebral Palsy, Amyotrophic Lateral Sclerosis (ALS/Ada Gehrig's), Guillain-[place] Syndrome, Spina Bifida, Paralysis, Goins's Palsy, Subdural Hematoma, Spinal Cord Injury or Traumatic Brain Injury CARDIAC: Positive Hypercholesterolemia, Hypertension, Hypotension and Varicose Veins; Negative Cardiac Disorders, Myocardial Infarction, Cardiac Arrhythmia, Atrial Fibrillation, Angina, Heart Murmur, Coronary Artery Disease, Atherosclerotic Heart Disease, Peripheral Vascular Disease, Aneurysm, Congestive Heart Failure, Congenital Heart Disease, Valvular Heart Disease, Rheumatic Fever, Cardiomyopathy, Edema, Pericarditis, Cellulitis or Deep Vein Thrombosis RESPIRATORY: Positive Chronic Obstructive Pulmonary Disease (COPD); Negative Asthma, Bronchitis, Emphysema, Pneumonia, Pulmonary Fibrosis, Cystic Fibrosis, Tuberculosis, Pulmonary Embolism, Pulmonary Edema or Sleep Apnea GASTROINTESTINAL: Positive Gastrointestinal Disorders, Gall Bladder Disease (choly), Diverticulitis, Diverticulosis, Irritable Bowel, Gastroesophageal Reflux Disease and Obesity; Negative Hepatitis, Cirrhosis, Pancreatitis, Celiac Disease, Gastrointestinal Bleed, Esophageal Varices, Rodriguez's Esophagus, Colitis, Ulcerative Colitis, Ulcer, Colorectal Cancer, Crohn's Disease, Obstructive Bowel, Hiatal Hernia or Hemorrhoids GENITOURINARY: Positive Genitourinary Disorders and Kidney Stones (Left kidney surgery, still has stone); Negative Renal Disease, Polycystic Kidney Disease, Neurogenic Bladder or Dialysis REPRODUCTIVE: Positive Endometriosis and Previous Pregnancies; Negative Breast Cancer, Pelvic Inflammatory Disease or Uterine Prolapse MUSCULOSKELETAL: Positive Arthritis, Fibromyalgia and Degenerative Joint Disease; Negative Muscular Dystrophy, Myasthenia Gravis, Marfan's Syndrome, Bone Cancer, Rheumatoid Arthritis, Osteoporosis, Degenerative Disk Disease, Gout, Scoliosis, Carpal Tunnel Syndrome, Fractures, Osteomyelitis or Poliovirus ENT: Positive Head Trauma; Negative Cataracts, Glaucoma, Blind, Retinal Detachment, Macular Degeneration, Ear Infection, Deafness or Eye Prosthesis ENDOCRINE: Positive Diabetes Mellitus Type 2; Negative Endocrine Disorders, Diabetes Mellitus Type 1, Hypoglycemia, [place]'s Syndrome, [place]'s Disease, Hyperthyroidism, Hypothyroidism, Parathyroid Disease, Pituitary Disease, Systemic Lupus Erythematosus, Syndrome of Inappropriate Antidiuretic Hormone (SIADH), Adrenal Disease or Graves' Disease HEMATOLOGIC: Negative Blood Disorders, Anemia, Leukemia, Hemophilia, Thalassemia, Sickle Cell Disease or Clotting Problems PSYCHO/SOCIAL: Positive Psychiatric Problems, Bipolar Disorder and Depression; Negative Schizophrenia, Anxiety, Behavior Problems, Self-Mutilation, Attention Deficit Disorder, Attention Deficit Hyperactivity Disorder, Depression, Post Traumatic Stress Disorder or Eating Disorder OTHER HISTORY: Positive Hospitalization, Falls, Chicken Pox, Measles and Mumps; Negative Down Syndrome, Autism, Developmental Delay, Shingles, Blood Transfusions, Blood Transfusion Reaction, Anesthesia Reactions, Organ Transplant, Chemotherapy, Radiation Therapy, Hyperbaric Therapy, MRSA, VRSA, Vancomycin-Resistant Enterococci, Human Immunodeficiency Virus (HIV), Rubella (French Measles), Pertussis, Clostridium Difficile, Cancer, Breast Cancer, Cervical Cancer, Colorectal Cancer, Lung Cancer or Ovarian Cancer Family History FAMILY HISTORY: Positive Family Psychiatric Problems, Family Cardiac Disorders and Family Gastrointestinal Problems; Negative Family Respiratory Disorders, Family Cancer, Family Surgery or Family Anesthesia Reaction Surgical History SURGICAL: Positive Angiogram, Oral Surgery, Tonsillectomy, Adenoidectomy, Abdominal Surgery, Joint Replacement (naz knee), Arthroscopy and Hysterectomy; Negative Cardiac Surgery, Open Heart Surgery, Coronary Artery Bypass Graft, Valve Replacement, Vascular Surgery, Coronary Stent, Cardiac Catheterization, Pacemaker, Auto Implanted Cardiovert Defib, Carotid Endarterectomy, Endocrine Surgery, Thyroidectomy, Ear Surgery, Tympanostomy Tube, Eye Surgery, Nose Surgery, Cochlear Implant, Corneal Transplant, Throat Surgery, Tracheostomy, Gastric Bypass Surgery, Gastrostomy, Bowel Surgery, Nephrectomy, Amputation, Open Reduction Internal Fixation, Neurologic Surgery, Brain Shunt, Mastectomy, Lumpectomy, Tubal Ligation, Section or Organ Transplant Social History SMOKING STATUS: Smoking status: Light (< 1 pack/day) PACK YEARS: Pack-Years: 17 SECOND HAND EXPOSURE: second hand exposure: No ALCOHOL: Alcohol Intake: Never HOUSING: Housing: House LIVES WITH: Lives With: Family Patient Portal Questionaires PHQ-9 PHQ-2 Over the last 2 weeks, how often have you been bothered by any of the following problems? 1. Little interest or pleasure in doing things: not at all PHQ-9 8. Moving or speaking so slowly that other people could have noticed? - Or the opposite - being so fidgety or restless that you have been moving around a lot more than usual: not at all Source: Developed by Drs. Gt Miller, Teresa Long, Andrew Lund and colleagues, with an educational oral from [employer]. Social History Living Situation History Housing: House Housing Other:: Patient resides in a home with her daughter. Tobacco History Smoking Status: Light (< 1 pack/day) Packs per Day: 1 Pack-Years: 17 Number of Smoking Years (pipe): 10 Second Hand Smoke Exposure: No Alcohol History Alcohol Intake: Never Domestic Abuse History Do You Feel Safe at Home: Yes Review of Systems Report any current symptoms Only answer those that you have currently: Past Medical History Past Medical History Have you ever been diagnosed with any of the following: Neurological Problems Cerebrovascular Accident (CVA): Yes Transient Ischemic Attacks (TIA): No Dementia: No Alzheimer's Disease: No Parkinson's Disease: No Brain Tumor: No Meningitis: No Seizures: No Epilepsy: No Multiple Sclerosis: No Cerebral Palsy: No Amyotrophic Lateral Sclerosis (ALS/Ada Gehrig's): No Guillain-Rich[place] Syndrome: No Spina Bifida: No Paralysis: No Peripheral Neuropathy: Yes Goins's Palsy: No Subdural Hematoma: No Migraine: Yes Head Trauma: Yes Spinal Cord Injury: No Traumatic Brain Injury: No Cardiology Problems Myocardial Infarction: No Cardiac Arrhythmia: No Atrial Fibrillation: No Angina: No Heart Murmur: No Coronary Artery Disease: No Atherosclerotic Heart Disease: No Peripheral Vascular Disease: No Hypercholesterolemia: Yes Aneurysm: No Congestive Heart Failure: No Congenital Heart Disease: No Valvular Heart Disease: No Rheumatic Fever: No Cardiomyopathy: No Edema: No Pericarditis: No Cellulitis: No Deep Vein Thrombosis: No Hypertension: Yes Hypotension: Yes Varicose Veins: Yes Respiratory Problems Chronic Obstructive Pulmonary Disease (COPD): Yes Asthma: No Bronchitis: No Emphysema: No Pneumonia: No Pulmonary Fibrosis: No Tuberculosis: No Pulmonary Embolism: No Pulmonary Edema: No Sleep Apnea: No Stomache/Intestinal Problems Hepatitis: No Cirrhosis: No Pancreatitis: No Celiac Disease: No Gall Bladder Disease: Yes (choly) Gastrointestinal Bleed: No Esophageal Varices: No Rodriguez's Esophagus: No Colitis: No Ulcerative Colitis: No Diverticulitis: Yes Diverticulosis: Yes Ulcer: No Colorectal Cancer: No Irritable Bowel: Yes Crohn's Disease: No Obstructive Bowel: No Hiatal Hernia: No Hemorrhoids: No Gastroesophageal Reflux Disease: Yes Obesity: Yes Genital/Urinary Problems Renal Disease: No Kidney Stones: Yes (Left kidney surgery, still has stone) Polycystic Kidney Disease: No Neurogenic Bladder: No Dialysis: No Reproductive Problems Breast Cancer: No Endometriosis: Yes Pelvic Inflammatory Disease: No Previous Pregnancies: Yes Uterine Prolapse: No Musculoskeletal Problems Muscular Dystrophy: No Myasthenia Gravis: No Marfan's Syndrome: No Bone Cancer: No Arthritis: Yes Rheumatoid Arthritis: No Osteoporosis: No Degenerative Disk Disease: No Gout: No Scoliosis: No Carpal Tunnel Syndrome: No Fibromyalgia: Yes Fractures: No Degenerative Joint Disease: Yes Osteomyelitis: No Poliovirus: No Head,Eye,Nose,Throat Problems Cataracts: No Glaucoma: No Blind: No Retinal Detachment: No Macular Degeneration: No Chronic Ear Infections: No Deafness: No Eye Prosthesis: No Endocrine Problems Diabetes Mellitus Type 1: No Diabetes Mellitus Type 2: Yes Hypoglycemia: No Ree's Syndrome: No Bennett's Disease: No Hyperthyroidism: No Hypothyroidism: No Parathyroid Disease: No Pituitary Disease: No Systemic Lupus Erythematosus: No Syndrome of Inappropriate Antidiuretic Hormone: No Adrenal Disease: No Graves' Disease: No Blood Problems Anemia: No Leukemia: No Hemophilia: No Thalassemia: No Sickle Cell Disease: No Clotting Problems: No Psychologic Problems Schizophrenia: No Bipolar Disorder: Yes Depression: Yes Anxiety: No Behavior Problems: No Self-Mutilation: No Attention Deficit Disorder: No Attention Deficit Hyperactivity Disorder: No Depression: No Post Traumatic Stress Disorder: No Eating Disorder: No Other Problems Hospitalization: Yes Down Syndrome: No Autism: No Developmental Delay: No Shingles: No Falls: Yes Blood Transfusions: No Blood Transfusion Reaction: No Anesthesia Reactions: No Organ Transplant: No Chemotherapy: No Radiation Therapy: No Hyperbaric Therapy: No MRSA: No VRSA: No Vancomycin-Resistant Enterococci: No Human Immunodeficiency Virus (HIV): No Chicken Pox: Yes Measles: Yes Mumps: Yes Rubella (French Measles): No Pertussis: No Clostridium Difficile: No Cancer: No Cervical Cancer: No Lung Cancer: No Ovarian Cancer: No Surgical History Carotid Endarterectomy: No Coronary Artery Bypass Graft: No Valve Replacement: No Hysterectomy: Yes Pacemaker: No Thyroidectomy: No History of Present Illness HPI Narrative Patient is a 65-year-old female with past medical history of non-insulin dependent type 2 diabetes, hypertension, CVA, NSTEMI, paroxysmal afib, CKD, nephrolithiasis s/p renal surgery and nephrostomy tube placement, bradycardia/vasovagal syncope, normocytic anemia, and bipolar disorder presents via telephone visit on 08/09/2025 for medication refills. She requests refills of the following medications: -amlodipine 10 mg qday -furosemide 20 mg qday -duloxetine 30 mg qday -hydrocodone-acetaminophen 7.5-325 mg TID prn chronic back pain (1 month supply) -cyclobenzaprine 10 mg TID prn chronic back pain Patient reports that she had been having some tooth pain and went to see her dentist. She stated that her dentist told her to request antibiotics from her PCP. Patient was told she should make an appointment for an in person visit first, advised to make appointment for Saturday 08/11. Patient reports she has a follow up appointment with her Property Damage Claims Adjustor, Dr. Lazo, upcoming in the next couple weeks for stress testing. Patient reports that her metoprolol had recently been switched to carvedilol 12.5 mg BID. 10/04/25: Patient was seen and examined in the clinic. Patient came for prescription refill of her pain medications that is Power. She reported that pharmacy gave her hard time and she wanted me to talk to pharmacy before she walk out so that she does not have any issues for refill as she has been in a lot of pain. Her blood pressure was slightly elevated. Mild edema was noted on lower extremities. She was given prescription refill and pharmacy was contacted for clarification on Power prescription. He was also given prescription refill for Lasix and cyclobenzaprine. New labs were ordered including CBC, CMP and urinalysis as patient is on multiple antihypertensives and diuretic. She had a cardiac cath test done by adult care provider who she is going to follow-up with in the next week for the results. Patient is currently smoking 2 packs of cigarette every day and was recommended to cut back as possible and was given nicotine gums as she reported that she cannot use patches due to skin sensitivity. She was recommended to follow-up after a month with lab work. No other complaints reported including chest pain, cough or any other issue. Patient does not take flu vaccine. Due to heavy smoking, patient was advised to get CT with low-dose contrast for lung cancer screening. Review of Systems Review of Systems Systems Reviewed: All systems reviewed, normal except as documented Objective/Exam Narrative Physical exam: GENERAL APPEARANCE: AxOx4, generally well-appearing female, no acute distress. HEENT: NC, AT. MMM. EOMI, clear conjunctiva, oropharynx clear. NECK: Supple without lymphadenopathy. No stiffness or restricted ROM. HEART: Regular rate and regular rhythm, normal S1/S2, no m/r/g LUNGS: CTAB, moving air well. No crackles or wheezes are heard. ABDOMEN: Soft, nontender, nondistended with good bowel sounds heard. BACK: No CVAT, no obvious deformity. Mild tenderness in sacral region EXTREMITIES: Without cyanosis, clubbing. Bilateral edema noted on both LE NEUROLOGICAL: Grossly nonfocal. Alert and oriented, moving all 4 extremities. CN not formally tested but appear grossly intact. Observed to ambulate with normal gait. Skin: Warm and dry without any rash. Assessment & Plan Diagnosis / Problem List (1) Hypertension: Status: Chronic Qualifiers: Hypertension type: primary hypertension Qualified Code(s): I10 - Essential (primary) hypertension Assessment & Plan: - Patient blood pressure was 155/75. She reported to take her medications with compliance. Plan: - Recommended to continue her blood pressure medications - Prescription refill given for Lasix 20 mg once daily - Follow-up with lab work (2) Coronary artery disease: Status: Chronic Qualifiers: Associated angina: without angina Coronary Disease-Associated Artery/Lesion type: [place] artery [place] vs. transplanted heart: [place] heart Qualified Code(s): I25.10 - Atherosclerotic heart disease of [place] coronary artery without angina pectoris Assessment & Plan: - Patient had a cardiac cath test performed by adult care provider. Reports pending. - Patient reported to have LE swelling but echo from 2022 shows EF 75%. No new echo seen. - She had mild PRINCESS in previous labs from Aug 2025 repeated new labs Plan: - Recommended to follow-up with adult care provider for cardiac cath results - Recommended to continue her home medications as prescribed - f/u with new labs (3) Back pain: Status: Chronic Qualifiers: Back pain laterality: midline Back pain location: low back pain Chronicity: chronic Sciatica presence: unspecified whether sciatica present Qualified Code(s): M54.50 - Low back pain, unspecified; G89.29 - Other chronic pain Assessment & Plan: - Patient reported to have chronic back pain which has been uncontrolled lately. Plan: - Prescription refill was given for Power and pharmacy was contacted for any clarification - Will try to cut back on dose of Power next visit (4) Smoker: Status: Acute Assessment & Plan: - Patient is actively smoking 2 packs of cigarette every day. Plan: - Counseled on smoking cessation and cut back on smoking - Nicotine gums given - Patient will need CT with contrast to screen for lung cancer - Patient refused taking flu vaccine Patient was seen and discussed with attending physician, Dr.Buttan Keny Dyson MD PGY3 Orders: Orders CBC 10/06/25 I10 - Essential (primary) hypertension, I25.10 - Atherosclerotic heart disease of [place] coronary artery without angina pectoris Comprehensive Metabolic Panel 10/06/25 I10 - Essential (primary) hypertension, I25.10 - Atherosclerotic heart disease of [place] coronary artery without angina pectoris Urinalysis 10/06/25 I10 - Essential (primary) hypertension Lipid Panel 10/06/25 I10 - Essential (primary) hypertension, I25.10 - Atherosclerotic heart disease of [place] coronary artery without angina pectoris Advanced Care Planning Advance care planning discussed with:: patient Office Procedures [facility] Level of Care Nursing/Assessment Patient Status: Established Patient Nursing Assessment/Reassessment: Medication Reconciliation, Update PMH in EMR and Vital Signs Coordination of Care: Complex Care and Chronic Disease 1-5, Complex Care/Chronic Disease 5 or more, Consent,records obtained, informed consent, Lab and Imaging orders, Results/Orders obtained and Staff clarify orders Established Patient Charge Established Patient Point Assignment: 125 Established Patient Point Charge: EP Level 4 (120-155)
== END 2025-10-04 15:11 | disposition home or self-care (01) ==
LOC: HODAHC 14:07
PROVIDERS: PCP Student in an Organized Health Care Education/Training Program; Referring Provider Student in an Organized Health Care Education/Training Program; Supervising Provider Internal Medicine; Visit Provider Student in an Organized Health Care Education/Training Program
DX: Z76.0 Encounter for issue of repeat prescription (principal); I10 Essential (primary) hypertension; I25.10 Atherosclerotic heart disease of native coronary artery without angina pectoris; F17.210 Nicotine dependence, cigarettes, uncomplicated; Z71.6 Tobacco abuse counseling; M54.50 Low back pain, unspecified; G89.29 Other chronic pain
CPT/HCPCS: 99214; G0463